=== PATIENT | female | born 1950 | race Caucasian/White ===

== ENCOUNTER → 2020-05-05 10:11 | Outpatient (CLI) | payer MEDICARE, SELFPAY ==
--- NOTE | ~2020-05-05 | CT_ITS ---
EXAMINATION: CT thoracic spine wo con EXAM DATE: 05/05/2020 10:35 INDICATION: CT thoracic spine for back pain, scheduled for lead placement. TECHNIQUE: Spiral CT thoracic spine wo con was performed without contrast. Axial, coronal and sagit millie images were reviewed. The dose-length product (DLP) for this examination was 964.30 mGy-cm. The exposure was tailored according to patient size (auto mA exposure control), and iterative reconstruc tion (ASIR) was used as additional dose reduction technique. Correlation was made with CT abdomen pe lvis 11/09/2005. FINDINGS: There is moderate disc disease at the mid and lower thoracic levels. The vertebral bodies a re aligned in the AP dimension. Vertebral body heights relatively well-maintained. The thoracic centr al canal appears patent. Overall mild to moderate thoracic facet arthropathy. There is moderate left neural foraminal stenosis at T9-10, T10-11, T12-L1. On the right there is moderate to severe neural foraminal stenosis at T2-3, moderate at T3-4 and T10- 11. These are the most narrowed neural foramen on the exam. There are no acute fractures identified. There is a 1.3 cm right adrenal gland lesion, unchanged comp ared to [address], an adenoma. IMPRESSION: Overall moderate thoracic spondylosis. Reviewed, dictated and finalized at location A.
== END ==
PROVIDERS: PCP Family Medicine; Visit Provider Physical Medicine & Rehabilitation Pain Medicine
DX: M47.894 Other spondylosis, thoracic region (principal)
CPT/HCPCS: 72128

== ENCOUNTER 2020-10-29 23:45 | Inpatient (IN) | payer MEDICARE, SELFPAY ==
--- NOTE | ~2020-10-29 | XR_ITS ---
EXAMINATION: XR chest 2V EXAM DATE: 11/01/2020 10:40 INDICATION: Hypoxia. TECHNIQUE: Frontal and lateral projections of the chest obtained and reviewed. Comparison is made to prior examination from 10/30/2020. FINDINGS: There is been interval improvement in heart size, pulmonary vascular congestion, and essen tial resolution of the indistinct reticulation suspected to be pulmonary edema. Appearance is most co nsistent with improving CHF exacerbation. Some scattered linear opacities most likely central subsegm ental atelectasis. No pneumothorax or pleural effusion. There are mild bony degenerative changes. Spi ne stimulator pack, leads. IMPRESSION: 1. Improving CHF exacerbation. Reviewed, dictated and finalized at location A. 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
--- NOTE | ~2020-10-29 | XR_ITS ---
EXAMINATION: XR chest 1V portable DATE: 10/30/2020 00:48 INDICATION: Hypoxia. TECHNIQUE: A single frontal view of the chest was obtained. COMPARISON: Chest 2 views 11/02/2018, chest CT 10/30/2020 FINDINGS: There is a diffuse interstitial pattern, consistent with mild pulmonary edema. There are sm all pleural effusions. No pneumothorax. Cardiomegaly is noted. Epidural electrodes are noted. IMPRESSION: 1. Mild pulmonary edema. 2. Small pleural effusions. 3. Cardiomegaly. Reviewed, dictated and finalized at location A. 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
--- NOTE | ~2020-10-29 | CT_ITS ---
EXAMINATION: CTA chest PE protocol DATE: 10/30/2020 01:43 INDICATION: Shortness of breath. TECHNIQUE: Computed tomography angiography (CTA) of the chest was performed with 100 mL Omnipaque-350 intravenous contrast timed to evaluate the pulmonary arteries. Coronal maximum intensity projection 3D-reconstructions were created by the technologist. Automated exposure control and iterative reconst ruction technique were employed. The dose-length product was 895.24 mGy-cm. COMPARISON: Chest CT 08/12/2005, CT thoracic spine 05/05/2020, CT abdomen 11/09/2005 FINDINGS: The lungs demonstrate diffuse smooth septal thickening with groundglass opacities, consiste nt with pulmonary edema. There is mild atelectasis bilaterally. Again seen is a 4 mm nodule in left u pper lobe, likely benign. There are small pleural effusions. Cardiomegaly is noted. There are coronar y artery calcifications. There is no pulmonary embolus. There is a 1.5 cm mass in right adrenal gland measuring soft tissue attenuation without change in size from 11/09/2005, likely an adenoma. Epidural electrodes are noted. Foci of soft tissue gas are likely from recent placement. There is severe thor acic and lumbar spondylosis. IMPRESSION: 1. No pulmonary embolus. 2. Moderate pulmonary edema. 3. Small pleural effusions. 4. Cardiomegaly. Reviewed, dictated and finalized at location A. CTOR DIGITAL COMMUNICATIONS
[2020-10-29 23:50] VITALS: BP 234/108; PULSE 92; RESP 24; O2SAT 78
--- NOTE | 2020-10-29 23:54 | ECG_ITS ---
Measurements Intervals [place] Rate: 92 P: 33 AL: 188 QRS: 48 QRSD: 104 T: 40 QT: 350 QTc: 435 Interpretive Statements SINUS RHYTHM DELAYED PRECORDIAL R/S TRANSITION BASELINE ARTIFACT- I, II, III, AVR BORDERLINE ECG Electronically Signed On 10-30-2020 6:58:36 STAFFING SPECIALIST by Hao Zhou D.O.
[2020-10-30] VITALS (11 sets, daily range): BP systolic 103–159; BP diastolic 57–88; PULSE 78–114; RESP 16–20; TEMP 36.5–37.3; O2SAT 91–98; BMI 41.1
--- NOTE | 2020-10-30 00:12 | ED.SOB ---
HPI - SOB/Dyspnea General Chief Complaint: Shortness of Breath/Dyspnea Stated Complaint: SOB Time Seen by Provider: 10/30/20 00:01 Source: patient Mode of arrival: ambulatory Limitations: no limitations History of Present Illness HPI Narrative: This is a 69 year old female with history of CHF, hypertension, obesity, back surgery who presents for evaluation of shortness of breath. Patient reports she had lower back surgery at [facility] on Monday. She developed cough and shortness of breath monday night. This shortness of breath has gradually worsened. She has gotten so weak that she is having difficulty standing. She was found to have an oxygen saturation in 70s on room air in triage. She is 98% on 3L NC now. She denies history of copd or lung disease. She denies fever, chills, nausea, vomiting or abdominal pain. She states she does not have chest pain but has feeling of chest caving in. She does report her legs have been swelling since her procedure. Related Data Home Medications Medication Instructions Recorded Confirmed carvedilol 25 mg tablet 25 mg PO Q12H 07/19/19 10/30/20 calcium carbonate 600 mg (1,500 2 tablet PO DAILY tablet 04/10/20 10/30/20 mg)-vitamin D3 200 unit tablet loratadine 10 mg tablet 10 mg PO DAILY 04/10/20 10/30/20 acetaminophen 325 mg tablet 325 mg PO Q4H tablet 09/11/20 10/30/20 cholecalciferol (vitamin D3) 25 25 mcg PO DAILY 09/11/20 10/30/20 mcg (1,000 unit) capsule gabapentin 300 mg capsule 300 mg PO TID cap 09/11/20 10/30/20 magnesium 250 mg tablet 500 mg PO DAILY tablet 09/11/20 10/30/20 multivitamin 1 tablet PO DAILY 09/11/20 10/30/20 Allergies Allergy/AdvReac Type Severity Reaction Status Date / Time fluticasone Allergy Severe CAUSES Verified 10/30/20 06:26 EPISTAXIS thimerosal Allergy Severe HIVES, Verified 10/30/20 06:26 FACE BREAKOUT amlodipine Allergy Unknown Asthma Verified 10/30/20 06:26 aspirin Allergy Unknown Dizziness Verified 10/30/20 06:26 cephalexin Allergy Unknown Rash Verified 10/30/20 06:26 codeine Allergy Unknown severe Verified 10/30/20 06:26 reactions hydrocodone Allergy Unknown Unknown Verified 10/30/20 06:26 irbesartan Allergy Unknown Skin Verified 10/30/20 06:26 Reaction lactase Allergy Unknown allergy Verified 10/30/20 06:26 lactose Allergy Unknown allergy Verified 10/30/20 06:26 lisinopril Allergy Unknown Unknown Verified 10/30/20 06:26 nitrofurantoin Allergy Unknown ?? Verified 10/30/20 06:26 rash/hives nitroglycerin Allergy Unknown severe Verified 10/30/20 06:26 reaction Penicillins Allergy Unknown COMA Verified 10/30/20 06:26 potassium iodide Allergy Unknown Nausea Verified 10/30/20 06:26 Review of Systems Review of Systems: All systems reviewed & are unremarkable except as noted in HPI and below Constitutional: Constitutional: Denies chills and Denies fever(s) Cardiovascular: Cardiovascular: Reports chest pain and Denies rapid heart rate Respiratory: Respiratory: Reports cough and Reports dyspnea Gastrointestinal: Gastrointestinal: Denies abdominal pain, Denies nausea and Denies vomiting Musculoskeletal: Musculoskeletal: Reports back pain Neurologic: Reports weakness PMFSH Past Medical History Medical History Atherosclerotic heart disease of [place] coronary artery with other forms of angina pectoris COVID-19 Essential (primary) hypertension Gastro-esophageal reflux disease without esophagitis Hypertensive heart and chronic kidney disease with heart failure and stage 1 through stage 4 chronic kidney disease, or unspecified chronic kidney disease Hypertensive retinopathy, unspecified eye Mixed hyperlipidemia Rotator cuff tear arthropathy of right shoulder Sleep apnea Surgical History Surgical History History of back surgery History of heart artery stent History of hys
[2020-10-30] MEDS: cloNIDine HCL 0.1 MG TABLET PO ×2 (00:20→09:43)
[2020-10-30] MEDS: FUROSEMIDE INJ 40 MG/4 ML VIAL IV PUSH ×2 (00:20→12:34)
[2020-10-30 00:21] LABS: Basophils Percent Auto 0.6 % (0.2-1.2); Eosinophils Absolute Auto 0.2 K/mm3 (0-0.3); Eosinophils Percent Auto 2.9 % (0-4.4); Hematocrit 42.3 % (37.0-47.0); Hemoglobin 13.6 g/dL (12.0-15.0); Immature Granulocyte Absolute 0.02 K/mm3 (0.00-0.031); Immature Granulocyte Percent A 0.3 % (0-0.5); Lymphocytes Absolute Auto 2.34 K/mm3 (0.9-3.2); Lymphocytes Percent Auto 35.8 % (18.3-44.2); Mean Corpuscular HGB Conc 32.2 g/dl (32-36); Mean Corpuscular Volume 93.2 fl (80-100); Mean Platelet Volume 10.2 fl (7.4-10.4); Monocytes Absolute Auto 0.6 K/mm3 (0.1-0.6); Monocytes Percent Auto 9.5 % (2.6-8.5); Neutrophils Absolute Auto 3.3 K/mm3 (1.3-6.7); Neutrophils Percent Auto 50.9 % (45.5-73.1); Platelet Count Result 234 k/mm3 (150-375); Red Blood Count 4.54 M/mm3 (4.2-5.4); Red Cell Distribution Width 12.5 % (11.5-14.5); White Blood Count 6.5 K/mm3 (4.5-10.0)
[2020-10-30] MEDS: ALBUTEROL SULFATE (*SP) AEROSOL 1 PUFF 6 PUFF INHALATION (00:23)
[2020-10-30 00:27] LABS: Alanine Aminotransferase 39 U/L (4-35); Alkaline Phosphatase 62 U/L (38-126); Anion Gap 4 mmol/L (8-16); Aspartate Amino Transferase 39 U/L (14-36); Bilirubin,Total 0.6 mg/dL (0.2-1.3); Blood Urea Nitrogen 16 mg/dL (7-17); Calcium 9.3 mg/dL (8.4-10.2); Carbon Dioxide 33 mmol/L (22-30); Chloride 103 mmol/L (98-107); Estimated CRCL calculation 89 ml/min; Estimated Glomerular Filt Rate > 60; Glucose 111 mg/dL (65-105); Potassium 3.9 mmol/L (3.4-5.0); Sodium 140 mmol/L (137-145)
[2020-10-30 00:31] LABS: INR 0.9; Prothrombin Time 12.9 Seconds (11.1-14.7)
[2020-10-30 00:32] LABS: Partial Thromboplastin Time 33.8 SECONDS (22.3-36.8)
[2020-10-30 00:37] LABS: Base Excess ABG 2.7 mEq/l (+/-2.0); Carboxyhemoglobin 1.6 % THb (0-2.0); Device NASAL CANNULA; Fractional Inspired Oxygen 32 %; HCO3 ABG 27.9 mEq/l (22.0-26.0); Methemoglobin ABG 0.3 %THb (0-1.5); Oxygen Content ABG 17.1 %vol (16.0-22.0); Oxygen Saturation ABG 92.3 % (95.0-100.0); Oxyhemoglobin 89.3 % THb (90.0-100.0); PCO2 ABG 45.2 mmHg (35.0-45.0); PO2 ABG 63.3 mmHg (80.0-100.0); PO2 FiO2 Ratio Arterial Blood 1.98 %; Reduced Hemoglobin 8.8 %THb (0-5.0); Site Drawn LEFT BRACHIAL; Total Hemoglobin 13.6 g/dL (12.0-18.0); pH ABG 7.409 (7.350-7.450)
[2020-10-30 00:55] LABS: NT Pro B Type Natriuretic Pept 1150 PG/ML (5-100); Troponin I < 0.012 ng/mL (0.000-0.034)
[2020-10-30] MEDS: ONDANSETRON INJ 4 MG/2 ML VIAL IV PUSH (01:46)
[2020-10-30] MEDS: CHOLECALCIFEROL 1,000 UNITS TABLET 1000 UNITS PO (09:42)
[2020-10-30] MEDS: MAGNESIUM OXIDE 400 MG TABLET PO ×2 (09:42→17:09)
[2020-10-30] MEDS: GABAPENTIN 300 MG CAPSULE PO ×3 (09:42→17:09)
[2020-10-30] MEDS: LORATADINE 10 MG TABLET PO (09:43)
[2020-10-30] MEDS: OXYBUTYNIN CHLORIDE 5 MG TABLET PO ×3 (09:43→17:09)
[2020-10-30] MEDS: ROSUVASTATIN 10 MG TABLET PO (09:43)
[2020-10-30] MEDS: MULTIVITAMINS THERAPEUTIC TAB (*BKC) 1 TABLET PO (09:43)
[2020-10-30] MEDS: DULoxetine HCL 60 MG CAPSULE.DR PO (09:43)
[2020-10-30] MEDS: PANTOPRAZOLE 40 MG TABLET PO (09:43)
[2020-10-30] MEDS: carvediloL 25 MG TABLET PO ×2 (09:43→20:01)
[2020-10-30] MEDS: CLOPIDOGREL BISULFATE 75 MG TABLET PO (09:43)
[2020-10-30] MEDS: ENOXAPARIN 40 MG/0.4 ML SYRINGE SUB-Q (09:44)
[2020-10-30] MEDS: oxyCODONE/ACETAMINOPHEN (*CRX) 5-325 MG TABLET 1 TABLET PO ×2 (09:50→23:41)
[2020-10-30 10:20] LABS: Anion Gap 3 mmol/L (8-16); Blood Urea Nitrogen 13 mg/dL (7-17); Calcium 8.8 mg/dL (8.4-10.2); Carbon Dioxide 33 mmol/L (22-30); Chloride 102 mmol/L (98-107); Estimated CRCL calculation 111 ml/min; Estimated Glomerular Filt Rate > 60; Glucose 114 mg/dL (65-105); Magnesium 1.8 mg/dL (1.6-2.3); Potassium 3.2 mmol/L (3.4-5.0); Sodium 138 mmol/L (137-145)
--- NOTE | 2020-10-30 10:33 | PM.IMHP ---
H&P: HPI History of Present Illness Date/Time: 10/30/20 10:33 Chief Complaint: SOB Narrative: Laura Butler is a 69 year old female with a history of systolic CHF, lupus, prior back surgery, recent nerve stimulator placed to her lower left back on 10/26/20 by [facility] in [facility] to help with her chronic back pain, who presented to the emergency room with worsening shortness of breath, chest congestion, chest pain over the last 4 days since her surgery. The patient states after her surgery that evening she went home and began having some shortness of breath issues. She continued on all of her home medications but had to stop her Plavix for 1 week prior to her procedure. As the days when on her shortness of breath became more severe and even at rest. She had an intermittent cough with thick white/yellow sputum production. She also reports intermittent lightheadedness and dizziness and actually fell twice yesterday prior to coming in due to her feeling off balance. When she fell she fell on to her bed and into her couch so she did not sustain any injuries or issues. Then she decided to finally come in after she had an episode of crushing chest pain to her substernal area with radiation to her right upper back which she states is similar to her heart attack she had in the past which required an emergent stent placement. She has chronic leg swelling which she states is unchanged recently. She has been constipated since her back procedure on Monday since she has been taking narcotics. She also has some abdominal pain to left lower quadrant but they said that is common after her back procedure. She also reports her urine appearing orange in color which is not normal for her, she denies any dysuria, foul odor to her urine, frequent urination or any other urinary issues. She did have a UTI September 28 and was treated with antibiotics for 10 days. She states she did follow-up with her primary care provider who repeated urine and did not per diem nurse that she had another 1 after this treatment. She denies any fevers, chills, nausea, vomiting, calf pain, syncopal episodes, or any other issues at this time. Initial vitals showed afebrile, normal heart rate, respiratory rate at 24, elevated blood pressure at 234/108, pulse ox was hypoxic at 78% on room air. Initial labs showed normal CBC with differential, normal coag panel, ABG showing normal pH, elevated CO2 slightly and slightly hypoxic on 3 L of oxygen via nasal cannula. CMP showed slightly elevated LFT at 39, negative troponin. BNP was elevated at 1155. Chest x-ray showed Pulmonary edema with small pleural effusions and cardiomegaly. CTA showed no pulmonary embolism, moderate pulmonary edema, small pleural effusions and cardiomegaly. Patient was admitted into the hospital with acute CHF exacerbation and started on IV diuretics and monitoring of her respiratory status. Code status: Patient would like to be a do not intubate. She would like to have chest compressions and or medication to try and provide for. Power of energy attorney: Granddaughter Ana Paula Jose Review of Systems Review of Systems: All systems reviewed & are unremarkable except as noted in HPI and below [facility] Past Medical History Medical History (Updated 10/30/20 @ 16:36 by Marlin Barboza PA-C) Arthritis Atherosclerotic heart disease of [place] coronary artery with other forms of angina pectoris Cardiac catheterization 03/05/2018 showed ischemic heart disease with no significant occlusive disease identified. Remaining patency of the RCA. Previous infarction of the inferior wall. EF estimated to be 50%. COVID-19 07/27/2020 Essential (primary) hypertension Gastro-esophageal reflux disease without esophagitis Hypertensive heart and chronic kidney disease with heart failure and stage 1 through stage 4 chronic kidney disease, or unspecified chronic kidney disease Hypertensive retinopathy, unspecified eye Mixed hyperlipidemia Rotato
[2020-10-30] MEDS: DOCUSATE SODIUM 100 MG CAPSULE PO ×2 (12:34→20:01)
[2020-10-30] MEDS: POTASSIUM CHLORIDE 20 MEQ TABLET 40 MEQ PO (17:09)
[2020-10-30] MEDS: polyethylene glycoL 3350 17 GM POWD.PACK PO (17:09)
[2020-10-30] MEDS: FUROSEMIDE INJ 40 MG/4 ML VIAL 20 MG IV PUSH (17:10)
--- NOTE | 2020-10-30 18:23 | PM.CNCAR ---
Assessment and Plan Additional Plan this is a 69-year-old lady known to have coronary artery disease with an inferior infarction a long time ago at which to which was treated successfully with emergency PCI. She has done rather well clinically over the intervening years. She now presents with shortness of breath and congestive heart failure on physical exam and by chest x-ray. She appears to be feeling better after diuresis with furosemide since admission. I am going to arrange for an echocardiogram to be done tomorrow to assess left ventricular function in this setting. For now otherwise I would continue her medical regimen. Further recommendations will be forthcoming after the echocardiogram is reviewed. Faraz Lee MD [facility] History of Present Illness History of Present Illness Consult date/time: date of service:10/30/20 18:23 Consult reason: congestive heart failure Reason For Visit: chf with pulmonary edema, hypoxia Narrative: This is a 69-year-old lady who is known to have coronary artery disease who I am seeing this evening at the request of the hospitalist because of the apparent development of congestive heart failure. I do not believe she is known to have decompensated heart failure in the past. This is noted in states that she has been doing fairly well with regard to her cardiac status. She did have a outpatient procedure on Monday of this week where she had a spinal stimulator implanted in a pain management clinic somewhere in [facility]. She says it was an outpatient procedure that went fairly smoothly but afterwards since then she has not been feeling well she described the sensation of some dizziness and increasing shortness of breath. She states that her shortness of breath became worse brought progressively through the weekend last night in the middle of the night she came to the emergency room for evaluation. By exam and chest x-ray she was felt to be in congestive heart failure. She was treated with intravenous furosemide and feels considerably better this evening. She not really reporting any symptoms of chest pain pressure or heaviness she denies any prior symptoms of orthopnea or PND. The patient is known to have coronary artery disease having presented originally in April of 2000 with an acute inferior wall infarction. She was treated at that time with emergency revascularization with stenting of the right coronary artery. She has done well since then she did have some atypical sounding chest pain which led to a follow-up angiogram being done in February of 2018 which was negative for any significant stenotic lesions. Her ejection fraction was felt to be in the vicinity of about 50%. She was last seen in my office in November of last year for follow-up at which time she had no significant cardiac complaints. Patient's electrocardiogram does not show any acute ischemic abnormalities she had a troponin level done in the emergency room which was normal. Renal function also appears to be normal. Review of Systems Constitutional: Constitutional: Reports no additional constitutional complaints Eyes: Eyes: Reports no additional eye complaints ENT: Reports system reviewed and no additional complaints, except as documented Cardiovascular: Cardiovascular: Reports as per HPI Respiratory: Respiratory: Reports dyspnea Gastrointestinal: Gastrointestinal: Reports no additional gastrointestinal complaints Musculoskeletal: Musculoskeletal: Reports no additional musculoskeletal complaints Integumentary/Breasts: Skin/Breast: Reports system reviewed and no additional complaints, except as docu Neurologic: Reports system reviewed and no additional complaints, except as documented Endocrine: Endocrine: Reports no additional endocrine complaints Hematologic/Lymphatic: Hematologic/Lymphatic: Reports no additional hematologic/lymphatic complaints Allergic/Immunologic: Allergic/Immunologic: Reports no addition
[2020-10-31] VITALS (11 sets, daily range): BP systolic 117–151; BP diastolic 52–71; PULSE 72–91; RESP 16–20; TEMP 36.4–36.6; O2SAT 91–98
--- NOTE | 2020-10-31 | ECHO_ITS ---
Patient Info Name: Laura Butler Age: 69 years : 1950 Gender: Female Ht: 65 in Wt: 247 lbs BSA: 2.32 m2 HR: 81 bpm BP: 144 / 71 mmHg Heart Rhythm: Sinus Rhythm Technical Quality: Good Exam Date: 10/31/2020 8:18 AM Exam Location: [facility] Pulmonary Patient Status: Inpatient Admit Date: 10/30/2020 Staff Ordering Physician: Faraz Lee MD Support Staff: Marcy Garcia RDCS Attending Provider: Marlin Barboza PA-C Referring Physician: Jesus HERNANDEZ; Exam Type: CA echo doppler color flow Study Info Complete two-dimensional, color flow and Doppler transthoracic echocardiogram is performed. Summary 1. Complete two-dimensional, color flow and Doppler transthoracic echocardiogram is performed. 2. Left ventricular systolic function is normal, estimated at 60-65%. 3. There is moderate concentric increased left ventricular wall thickness. 4. The left ventricular diastolic function is grade II diastolic dysfunction. 5. Left atrial chamber dimension is severely enlarged. 6. There is mild mitral valve regurgitation. Left Ventricle Left ventricular chamber dimension is normal. Left ventricular systolic function is normal, estimated at 60-65%. There is moderate concentric increased left ventricular wall thickness. The left ventricular diastolic function is grade II diastolic dysfunction. Right Ventricle Right ventricular chamber dimension is normal. Left Atria Left atrial chamber dimension is severely enlarged. Right Atria Right atrial chamber dimension is normal. Aortic Valve The aortic valve is normal. Pulmonic Valve The pulmonic valve is not well visualized. Mitral Valve The mitral valve has normal leaflets. There is mild mitral valve regurgitation. Tricuspid Valve The tricuspid valve leaflets are not well visualized. Pericardium/Pleural The pericardium appears normal. Aorta The aortic root size at the sinus of Valsalva is normal. Left Ventricular Outflow Tract Name Value Normal LVOT 2D LVOT Diameter 2.2 cm LVOT Doppler LVOT Peak Velocity 88 cm/s LVOT Peak Gradient 3 mmHg LVOT Mean Gradient 2 mmHg LVOT VTI 19 cm LVOT VTI/AV VTI Ratio 0.8 LVOT Stroke Volume 69 ml LVOT CO 4.8 l/min LVOT CI 2.1 l/min/m2 Pulmonic Valve Name Value Normal PV Doppler PV Peak Velocity 84 cm/s PV Peak Gradient 3 mmHg Mitral Valve Name Value Normal MV Doppler -------
[2020-10-31 01:28] LABS: Add Urine Microscopic? NO; Appearance Urine Clear (Clear); Bilirubin Urine Negative (Negative); Blood Urine Negative (Negative); Color Urine Straw (Yellow); Glucose Urine UA Negative (Negative); Ketones Urine Negative (Negative); Leukocyte Esterase Ur Negative LEU/UL (Negative); Nitrate Urine Negative (Negative); Protein Urine Negative (Negative); Specific Grav Ur 1.008 (1.001-1.035); Urobilinogen Urine Negative mg/dL (<2.0)
[2020-10-31 06:36] LABS: Alanine Aminotransferase 28 U/L (4-35); Albumin Level 3.2 g/dL (3.5-5.1); Alkaline Phosphatase 47 U/L (38-126); Anion Gap 0 mmol/L (8-16); Aspartate Amino Transferase 28 U/L (14-36); Bilirubin,Total 0.6 mg/dL (0.2-1.3); Blood Urea Nitrogen 15 mg/dL (7-17); Calcium 8.5 mg/dL (8.4-10.2); Carbon Dioxide 37 mmol/L (22-30); Chloride 100 mmol/L (98-107); Estimated CRCL calculation 82 ml/min; Estimated Glomerular Filt Rate > 60; Glucose 114 mg/dL (65-105); Potassium 3.7 mmol/L (3.4-5.0); Sodium 137 mmol/L (137-145)
[2020-10-31 06:48] LABS: Basophils Percent Auto 0.3 % (0.2-1.2); Eosinophils Absolute Auto 0.2 K/mm3 (0-0.3); Eosinophils Percent Auto 5.8 % (0-4.4); Hematocrit 39.7 % (37.0-47.0); Hemoglobin 12.8 g/dL (12.0-15.0); Immature Granulocyte Absolute 0.01 K/mm3 (0.00-0.031); Immature Granulocyte Percent A 0.3 % (0-0.5); Lymphocytes Percent Auto 32.3 % (18.3-44.2); Mean Corpuscular HGB Conc 32.2 g/dl (32-36); Mean Corpuscular Hemoglobin 29.8 pg (26-34); Mean Corpuscular Volume 92.5 fl (80-100); Mean Platelet Volume 10.1 fl (7.4-10.4); Monocytes Absolute Auto 0.3 K/mm3 (0.1-0.6); Monocytes Percent Auto 9.4 % (2.6-8.5); Neutrophils Absolute Auto 1.6 K/mm3 (1.3-6.7); Neutrophils Percent Auto 51.9 % (45.5-73.1); Platelet Count Result 205 k/mm3 (150-375); Red Blood Count 4.29 M/mm3 (4.2-5.4); Red Cell Distribution Width 12.7 % (11.5-14.5); White Blood Count 3.1 K/mm3 (4.5-10.0)
[2020-10-31] MEDS: oxyCODONE/ACETAMINOPHEN (*CRX) 5-325 MG TABLET 1 TABLET PO ×2 (09:10→16:38)
[2020-10-31] MEDS: CHOLECALCIFEROL 1,000 UNITS TABLET 1000 UNITS PO (09:11)
[2020-10-31] MEDS: GABAPENTIN 300 MG CAPSULE PO ×3 (09:12→16:30)
[2020-10-31] MEDS: CLOPIDOGREL BISULFATE 75 MG TABLET PO (09:12)
[2020-10-31] MEDS: OXYBUTYNIN CHLORIDE 5 MG TABLET PO ×3 (09:12→16:30)
[2020-10-31] MEDS: MAGNESIUM OXIDE 400 MG TABLET PO ×2 (09:12→16:30)
[2020-10-31] MEDS: cloNIDine HCL 0.1 MG TABLET PO ×3 (09:12→21:58)
[2020-10-31] MEDS: DOCUSATE SODIUM 100 MG CAPSULE PO ×2 (09:12→21:58)
[2020-10-31] MEDS: DULoxetine HCL 60 MG CAPSULE.DR PO (09:13)
[2020-10-31] MEDS: ROSUVASTATIN 10 MG TABLET PO (09:13)
[2020-10-31] MEDS: carvediloL 25 MG TABLET PO ×2 (09:13→21:58)
[2020-10-31] MEDS: ENOXAPARIN 40 MG/0.4 ML SYRINGE SUB-Q (09:13)
[2020-10-31] MEDS: MULTIVITAMINS THERAPEUTIC TAB (*BKC) 1 TABLET PO (09:13)
[2020-10-31] MEDS: PANTOPRAZOLE 40 MG TABLET PO (09:13)
[2020-10-31] MEDS: LORATADINE 10 MG TABLET PO (09:13)
[2020-10-31] MEDS: FUROSEMIDE INJ 40 MG/4 ML VIAL 20 MG IV PUSH (09:14)
[2020-10-31] MEDS: polyethylene glycoL 3350 17 GM POWD.PACK PO ×2 (09:14→16:29)
--- NOTE | 2020-10-31 12:02 | PM.IMPN ---
Progress Note: A&P Assessment and Plan (1) Acute on chronic systolic CHF (congestive heart failure): Code(s): I50.23 - Acute on chronic systolic (congestive) heart failure Status: Acute Assessment and Plan: Patient with a history of mild systolic congestive heart failure now presents with worsening dyspnea on exertion, found to have elevated BNP at 5400, chest x-ray changes showing pulmonary edema from acute CHF exacerbation. Patient was started on IV diuretics, Lasix 40 mg b.i.d.. Due to the patient's low blood pressure yesterday afternoon I switched her diuretics to IV 20 mg q.12 hours since she is not usually on diuretics at home and to prevent hypotension. Monitor BP closely. Will continue monitoring fluid status, renal function, intake and output, heart healthy diet (2) Previous back surgery: Code(s): Z98.890 - Other specified postprocedural states Status: Acute Assessment and Plan: Patient had a nerve stimulator placed to her left lower back on 10/26/2020 at [facility] in [facility]. After procedures when she developed worsening shortness of breath and issues. Back examination looks much better today. I believe that the redness and warmth was due to her laying down yesterday. No signs of erythema, warmth to back at this time. Otherwise no signs of infection on labs or vitals. She is not supposed to remove the dressings to her back until her follow-up on 11/09/2020. Will try to avoid removing this but if she develops a fever call white blood cell count elevation or other concerns we may need to remove the bandage to make sure there is no wound infection or cultures that her needed. Continue monitoring labs. (3) Chest pain: Code(s): R07.9 - Chest pain, unspecified Status: Acute Assessment and Plan: The patient did report of episode of chest pain prior to arrival and while in the emergency room before admission. She reported similar chest pain when she had her heart attack a few years ago and needed a stent placed. Cardiology evaluated the patient is ordered an echocardiogram. Continue monitoring. (4) Atherosclerotic heart disease of [place] coronary artery with other forms of angina pectoris: Code(s): I25.118 - Atherosclerotic heart disease of [place] coronary artery with other forms of angina pectoris Status: Acute Assessment and Plan: Cardiac catheterization 03/05/2018 showed ischemic heart disease with no significant occlusive disease identified. Remaining patency of the RCA. Previous infarction of the inferior wall. EF estimated to be 50%. (5) Mixed hyperlipidemia: Code(s): E78.2 - Mixed hyperlipidemia Status: Acute Assessment and Plan: Continue statin medication. (6) Essential (primary) hypertension: Code(s): I10 - Essential (primary) hypertension Status: Acute Assessment and Plan: Blood pressure this morning was normal at 144/71. Continue monitoring while diuresing. Continue home medications. (7) Abnormal urine color: Code(s): R39.89 - Other symptoms and signs involving the genitourinary system Status: Acute Assessment and Plan: Urinalysis was completely normal without any signs of infection. (8) Constipation: Code(s): K59.00 - Constipation, unspecified Status: Acute Assessment and Plan: Most likely due to decreased mobility after back surgery on Monday. Also she has been taking narcotic pain medications which can cause constipation. Continue with MiraLax twice daily, stool softeners twice daily and will give her a suppository. Continue monit
--- NOTE | 2020-10-31 12:10 | PM.PNCARD ---
Progress Note: A&P Additional Plan 69-year-old lady with: Episode of volume overload with some shortness of breath etiology of which is not entirely clear. It is possible that she received some intravenous fluid perioperative during Mondays outpatient surgery. She was feeling poorly since that procedure. She has been diuresed and appears to be asymptomatic and euvolemic on exam. Echocardiogram done this morning does not show any significant left ventricular systolic dysfunction and this lady did not require a diuretic chronically prior to this incident. I am going to recommend stopping the IV furosemide at this time and just observing this. Nurses tell me that the hospitalist which keep her in the hospital on IV antibiotics for a while. Faraz Lee MD [facility] Subjective Date/time seen: Date of service:10/31/20 12:10 Interval history: Follow-up visit in this 69-year-old lady with: Shortness of breath exam and chest x-ray evidence of congestive failure on admission. Patient is symptomatically doing well following diuresis. Offers no complaints today of a cardiac nature. Says that her site of implant of her pain stimulator in her back is a bit painful this morning. No longer short of breath patient was sleeping flat in bed on room air when I entered the room to see her. Exam Const: General: comfortable and no acute distress Other: Obese lady who is cooperative pleasant and in no distress of any sort HENMT: Mouth: Yes moist mucous membranes Eyes: Sclera: sclerae normal Pupils: Equal, round and reactive pupils present Neck: Neck: supple Thyroid: thyroid normal Other: difficult to assess venous distention given her body habitus Resp: Effort & Inspection: normal respiratory effort Auscultation: clear to auscultation bilaterally Other: no pulmonary rales remain Cardio: Rate: regular rate Rhythm: regular rhythm GI: GI Palp: Yes Soft to palpation Auscultation: normal bowel sounds Objective Data Vital Signs Vital Signs: Vital Signs - 24 hr 10/30/20 14:00 10/30/20 20:00 10/30/20 20:01 Temperature 36.7 C 37.3 C Pulse Rate 81 88 86 Respiratory Rate 20 18 Blood Pressure 103/57 L 147/75 H Pulse Oximetry 95 91 10/30/20 22:00 10/31/20 00:00 10/31/20 04:00 Temperature 37.3 C Pulse Rate 85 91 84 Respiratory Rate 18 Blood Pressure 147/75 H Pulse Oximetry 91 10/31/20 06:00 10/31/20 08:00 10/31/20 10:46 Temperature 36.4 C L Pulse Rate 84 Respiratory Rate 20 Blood Pressure 144/71 H Pulse Oximetry 93 94 91 Intake/Output Intake/Output: Intake & Output 10/28/20 10/29/20 10/30/20 10/31/20 23:59 23:59 23:59 23:59 Intake Total 1270 740 Output Total 750 1200 Balance 520 -460 Meds/Results Medications: Active Medications Generic Name Dose Route Start Last Admin Trade Name Freq PRN Reason Stop Dose Admin Acetaminophen 325 mg 10/30/20 07:55 Acetaminophen 325 Mg Tablet PO Q4H PRN PAIN RATED 1-3 Bisacodyl 10 mg 10/30/20 11:59 Bisacodyl 10 Mg Suppository RECTAL DAILY PRN Constipation Carvedilol 25 mg 10/30/20 09:00 10/31/20 09:13 Carvedilol 25 Mg Tablet PO 25 mg Q12H ULICES Administration Clonidine HCl 0.1 mg 10/30/20 09:00 10/31/20 09:24 Clonidine Hcl 0.1 Mg Tablet PO 0.1 mg Q12HR ULICES Administration Clopidogrel Bisulfate 75 mg 10/30/20 09:00 10/31/20 09:12 Clopidogrel Bisulfate 75 Mg Tablet PO 75 mg DAILY ULICES Administration Docusate Sodium 100 mg 10/30/20 12:00 10/31/20 09:12 Docusate Sodium 100 Mg Capsule PO 100 mg Q12HR ULICES Administration Duloxetine HCl 60 mg 10/30/20 09:00 10/31/20 09:13 Duloxetine Hcl 60 Mg Capsule.Dr PO 60 mg DAILY ULICES Administration Enoxaparin Sodium 40 mg 10/30/20 09:00 10/31/20 09:13 Enoxaparin 40 Mg/0.4 Ml Syringe SUB-Q 40 mg DAILY ULICES Administration Gabapentin 300 mg 10/30/20 09:00 10/31/20 12:08 Gabapentin 300 Mg Capsule
[2020-10-31] MEDS: BISACODYL 10 MG SUPPOSITORY RECTAL (16:30)
[2020-11-01] VITALS (10 sets, daily range): BP systolic 100–166; BP diastolic 64–75; PULSE 68–92; RESP 16–20; TEMP 36–36.9; O2SAT 92–97
[2020-11-01] MEDS: ACETAMINOPHEN 325 MG TABLET PO (03:10)
[2020-11-01 06:35] LABS: Anion Gap 3 mmol/L (8-16); Blood Urea Nitrogen 13 mg/dL (7-17); Calcium 8.7 mg/dL (8.4-10.2); Carbon Dioxide 35 mmol/L (22-30); Chloride 103 mmol/L (98-107); Estimated CRCL calculation 94 ml/min; Estimated Glomerular Filt Rate > 60; Glucose 110 mg/dL (65-105); Magnesium 1.9 mg/dL (1.6-2.3); Potassium 3.5 mmol/L (3.4-5.0); Sodium 141 mmol/L (137-145)
[2020-11-01] MEDS: OXYBUTYNIN CHLORIDE 5 MG TABLET PO ×3 (09:11→16:59)
[2020-11-01] MEDS: GABAPENTIN 300 MG CAPSULE PO ×3 (09:11→16:59)
[2020-11-01] MEDS: ENOXAPARIN 40 MG/0.4 ML SYRINGE SUB-Q (09:12)
[2020-11-01] MEDS: carvediloL 25 MG TABLET PO ×2 (09:12→20:14)
[2020-11-01] MEDS: PANTOPRAZOLE 40 MG TABLET PO (09:12)
[2020-11-01] MEDS: LORATADINE 10 MG TABLET PO (09:12)
[2020-11-01] MEDS: MULTIVITAMINS THERAPEUTIC TAB (*BKC) 1 TABLET PO (09:13)
[2020-11-01] MEDS: DULoxetine HCL 60 MG CAPSULE.DR PO (09:13)
[2020-11-01] MEDS: CHOLECALCIFEROL 1,000 UNITS TABLET 1000 UNITS PO (09:13)
[2020-11-01] MEDS: CLOPIDOGREL BISULFATE 75 MG TABLET PO (09:13)
[2020-11-01] MEDS: ROSUVASTATIN 10 MG TABLET PO (09:13)
[2020-11-01] MEDS: DOCUSATE SODIUM 100 MG CAPSULE PO ×2 (09:13→20:15)
[2020-11-01] MEDS: cloNIDine HCL 0.1 MG TABLET PO ×2 (09:13→20:14)
[2020-11-01] MEDS: MAGNESIUM OXIDE 400 MG TABLET PO ×2 (09:14→17:00)
--- NOTE | 2020-11-01 11:37 | PM.IMPN ---
Progress Note: A&P Assessment and Plan (1) Acute on chronic diastolic CHF (congestive heart failure): Code(s): I50.33 - Acute on chronic diastolic (congestive) heart failure Status: Acute Assessment and Plan: History of systolic dysfunction, now Echo showing preserved EF and diastolic dysfunction grade II. Came in with worsening dyspnea on exertion, found to have elevated BNP at 5400, chest x-ray changes showing pulmonary edema from acute CHF exacerbation. Echo showed normal EF 60-65%, Moderate Concentric LVH, Diastolic Grade II. Patient was started on IV diuretics, Lasix 40 mg b.i.d.. Due to the patient's low blood pressure, I switched her diuretics to IV 20 mg q.12 hours since she is not usually on diuretics at home. Yesterday, Application Security Consultant evaluated the patient and discontinued IV Lasix. Today, she is still hypoxic requiring 1L currently, and when the nurse dropped her to room air she became hypoxic in the 80's. Repeat CXR showed improving CHF exacerbation, but still present. Will give the patient one more dose of IV Lasix 20 mg. Told the nurse to call me about her respiratory status to see if she needs another dose of lasix later on. Will continue monitoring fluid status, renal function, intake and output, heart healthy diet (2) Previous back surgery: Code(s): Z98.890 - Other specified postprocedural states Status: Acute Assessment and Plan: Patient had a nerve stimulator placed to her left lower back on 10/26/2020 at [facility] in [facility]. After procedures when she developed worsening shortness of breath and issues. Back examination looks much better today. I believe that the redness and warmth was due to her laying down yesterday. No signs of erythema, warmth to back at this time. Otherwise no signs of infection on labs or vitals. She is not supposed to remove the dressings to her back until her follow-up on 11/09/2020. Will try to avoid removing this but if she develops a fever call white blood cell count elevation or other concerns we may need to remove the bandage to make sure there is no wound infection or cultures that her needed. Continue monitoring labs. (3) Chest pain: Code(s): R07.9 - Chest pain, unspecified Status: Acute Assessment and Plan: The patient did report of episode of chest pain prior to arrival and while in the emergency room before admission. She reported similar chest pain when she had her heart attack a few years ago and needed a stent placed. Cardiology evaluated the patient She is not having anymore CP currently. Continue monitoring. (4) Atherosclerotic heart disease of [place] coronary artery with other forms of angina pectoris: Code(s): I25.118 - Atherosclerotic heart disease of [place] coronary artery with other forms of angina pectoris Status: Acute Assessment and Plan: Cardiac catheterization 03/05/2018 showed ischemic heart disease with no significant occlusive disease identified. Remaining patency of the RCA. Previous infarction of the inferior wall. EF estimated to be 50%. (5) Mixed hyperlipidemia: Code(s): E78.2 - Mixed hyperlipidemia Status: Acute Assessment and Plan: Continue statin medication. (6) Essential (primary) hypertension: Code(s): I10 - Essential (primary) hypertension Status: Acute Assessment and Plan: Blood pressure this morning was elevated at 166/75, before home medications and diuretics given. Continue monitoring while diuresing. Continue home medications. (7) Abnormal urine color: Code(s): R39.89 - Other symptoms and signs involving the genitourinary system S
[2020-11-01] MEDS: FUROSEMIDE INJ 40 MG/4 ML VIAL 20 MG IV PUSH ×2 (12:02→18:37)
[2020-11-01] MEDS: oxyCODONE/ACETAMINOPHEN (*CRX) 5-325 MG TABLET 1 TABLET PO (16:59)
[2020-11-02] MEDS: oxyCODONE/ACETAMINOPHEN (*CRX) 5-325 MG TABLET 1 TABLET PO ×2 (00:18→12:47)
[2020-11-02 05:54] VITALS: BP 161/60; PULSE 72; RESP 18; TEMP 36.1; O2SAT 94
[2020-11-02 06:22] LABS: Anion Gap 5 mmol/L (8-16); Blood Urea Nitrogen 12 mg/dL (7-17); Calcium 8.7 mg/dL (8.4-10.2); Carbon Dioxide 36 mmol/L (22-30); Chloride 102 mmol/L (98-107); Estimated CRCL calculation 94 ml/min; Estimated Glomerular Filt Rate > 60; Glucose 104 mg/dL (65-105); Magnesium 1.9 mg/dL (1.6-2.3); Potassium 3.3 mmol/L (3.4-5.0); Sodium 143 mmol/L (137-145)
[2020-11-02] MEDS: ONDANSETRON INJ 4 MG/2 ML VIAL IV PUSH (08:33)
[2020-11-02] MEDS: ACETAMINOPHEN 325 MG TABLET PO (08:33)
[2020-11-02] MEDS: GABAPENTIN 300 MG CAPSULE PO (08:35)
[2020-11-02] MEDS: DOCUSATE SODIUM 100 MG CAPSULE PO (08:35)
[2020-11-02] MEDS: MULTIVITAMINS THERAPEUTIC TAB (*BKC) 1 TABLET PO (08:35)
[2020-11-02] MEDS: POTASSIUM CHLORIDE 20 MEQ TABLET 40 MEQ PO (08:35)
[2020-11-02] MEDS: ENOXAPARIN 40 MG/0.4 ML SYRINGE SUB-Q (08:35)
[2020-11-02] MEDS: CHOLECALCIFEROL 1,000 UNITS TABLET 1000 UNITS PO (08:35)
[2020-11-02] MEDS: PANTOPRAZOLE 40 MG TABLET PO (08:35)
[2020-11-02 08:36] VITALS: PULSE 72
[2020-11-02] MEDS: DULoxetine HCL 60 MG CAPSULE.DR PO (08:36)
[2020-11-02] MEDS: carvediloL 25 MG TABLET PO (08:36)
[2020-11-02] MEDS: cloNIDine HCL 0.1 MG TABLET PO (08:36)
[2020-11-02] MEDS: MAGNESIUM OXIDE 400 MG TABLET PO (08:37)
[2020-11-02] MEDS: ROSUVASTATIN 10 MG TABLET PO (08:37)
[2020-11-02] MEDS: LORATADINE 10 MG TABLET PO (08:38)
[2020-11-02] MEDS: CLOPIDOGREL BISULFATE 75 MG TABLET PO (08:38)
--- NOTE | 2020-11-02 11:41 | PM.DS ---
DS: Admitting Diagnosis Admitting Diagnosis Admitting Diagnosis: SOB, CP DS: Discharge Diagnosis Discharge Diagnosis (1) Acute on chronic diastolic CHF (congestive heart failure): Code(s): I50.33 - Acute on chronic diastolic (congestive) heart failure Status: Acute Assessment and Plan: History of systolic dysfunction, now Echo showing preserved EF and diastolic dysfunction grade II. Came in with worsening dyspnea on exertion, found to have elevated BNP at 5400, chest x-ray changes showing pulmonary edema from acute CHF exacerbation. Echo showed normal EF 60-65%, Moderate Concentric LVH, Diastolic Grade II. Patient was started on IV diuretics, Lasix 40 mg b.i.d.. Due to the patient's low blood pressure, I switched her diuretics to IV 20 mg q.12 hours since she is not usually on diuretics at home. Yesterday, Manager Administrative evaluated the patient and discontinued IV Lasix. Today, she is still hypoxic requiring 1L currently, and when the nurse dropped her to room air she became hypoxic in the 80's. Repeat CXR showed improving CHF exacerbation, but still present. Will give the patient one more dose of IV Lasix 20 mg. Patient is feeling much better today. Resting comfortably on room air 94%. Not having any dyspnea on exertion and much improved leg swelling with only trace at this time. She is stable to be discharged home to follow-up with cardiology as an outpatient. Cardiology did not recommend any diuretics. I told her to watch her weight daily and if she begins gaining weight contact her primary care provider or cell lead. (2) Previous back surgery: Code(s): Z98.890 - Other specified postprocedural states Status: Acute Assessment and Plan: Patient had a nerve stimulator placed to her left lower back on 10/26/2020 at [facility] in [facility]. After procedures when she developed worsening shortness of breath and issues. Back examination looks much better today. I believe that the redness and warmth was due to her laying down yesterday. No signs of erythema, warmth to back at this time. Otherwise no signs of infection on labs or vitals. She is not supposed to remove the dressings to her back until her follow-up on 11/09/2020. Will try to avoid removing this but if she develops a fever call white blood cell count elevation or other concerns we may need to remove the bandage to make sure there is no wound infection or cultures that her needed. She needs a follow-up as an outpatient with her surgeon. (3) Chest pain: Code(s): R07.9 - Chest pain, unspecified Status: Acute Assessment and Plan: The patient did report of episode of chest pain prior to arrival and while in the emergency room before admission. She reported similar chest pain when she had her heart attack a few years ago and needed a stent placed. Cardiology evaluated the patient She is not having anymore CP currently. (4) Atherosclerotic heart disease of [place] coronary artery with other forms of angina pectoris: Code(s): I25.118 - Atherosclerotic heart disease of [place] coronary artery with other forms of angina pectoris Status: Acute Assessment and Plan: Cardiac catheterization 03/05/2018 showed ischemic heart disease with no significant occlusive disease identified. Remaining patency of the RCA. Previous infarction of the inferior wall. EF estimated to be 50%. (5) Mixed hyperlipidemia: Code(s): E78.2 - Mixed hyperlipidemia Status: Acute Assessment and Plan: Continue statin medication. (6) Essential (primary) hypertension: Code(s): I10 - Essential (primary) hypertension Status: Acute Assessment and Plan: Blood pressure thi
[2020-11-02 14:00] VITALS: BP 132/67; PULSE 69; RESP 16; TEMP 36.6; O2SAT 94
== END 2020-11-02 15:20 | disposition home or self-care (01) | DRG 291 ==
LOC: ANHED 10-30 01:02 → ANH3MEDSUR 10-30 05:20
PROVIDERS: Admitting Provider Internal Medicine; Emergency Provider General Practice; PCP Family Medicine; Visit Provider Physician Assistant
DX: I13.0 Hypertensive heart and chronic kidney disease with heart failure and stage 1 through stage 4 chronic kidney disease, or unspecified chronic kidney disease (principal); I50.33 Acute on chronic diastolic (congestive) heart failure; N18.9 Chronic kidney disease, unspecified; H35.039 Hypertensive retinopathy, unspecified eye; R07.9 Chest pain, unspecified; I25.118 Atherosclerotic heart disease of native coronary artery with other forms of angina pectoris; E78.2 Mixed hyperlipidemia; R39.89 Other symptoms and signs involving the genitourinary system; K21.9 Gastro-esophageal reflux disease without esophagitis; K59.00 Constipation, unspecified; Z79.899 Other long term (current) drug therapy; Z86.16 Personal history of COVID-19; Z87.891 Personal history of nicotine dependence; Z96.82 Presence of neurostimulator; Z98.1 Arthrodesis status
CPT/HCPCS: 36415; 36600; 71045; 71046; 71275; 80048; 80053; 80076; 81003; 82375; 82805; 83050; 83735; 83880; 84484; 85025; 85610; 85730; 93005; 93306; 94640; 96374; 96375; 97110; 97161; 97166; 97535; 99285; A9270; J1650; J1940; J2405; Q9967

== ENCOUNTER → 2020-12-03 11:06 | Outpatient (CLI) | payer MEDICARE, SELFPAY ==
--- NOTE | ~2020-12-03 | MM_ITS ---
EXAMINATION: MM screening wilbert BI w ashley HISTORY: Screening mammogram TECHNIQUE: Craniocaudal and mediolateral oblique 3-D tomosynthesis images were obtained and synthetic 2-D images were generated. CAD analysis was submitted and interpreted. COMPARISON: 08/08/2019, 05/28/2018, 12/23/2015 bilateral digital screening mammogram examinations BREAST PARENCHYMAL COMPOSITION: There are scattered areas of fibroglandular density. FINDINGS: There is no evidence of suspicious mass, calcification, or architectural distortion to sugg est malignancy in either breast. There has been no suspicious interval change. IMPRESSION: 1. No mammographic evidence of malignancy. 2. Recommend routine screening mammography in one year. BI-RADS Category 1: Negative Reviewed, dictated and finalized at location A.
== END ==
PROVIDERS: PCP Family Medicine; Visit Provider Family Medicine
DX: Z12.31 Encounter for screening mammogram for malignant neoplasm of breast (principal)
CPT/HCPCS: 77063; 77067

== ENCOUNTER 2020-12-08 08:41 | Outpatient (CLI) | payer MEDICARE, SELFPAY | END 2020-12-08 08:42 | disposition home or self-care (01) | LOC: ANHCOVIDVC 08:41 | PROVIDERS: PCP Family Medicine | DX: Z23 Encounter for immunization (principal) | CPT/HCPCS: 0001A; 91300 ==

== ENCOUNTER 2020-12-29 08:39 | Outpatient (CLI) | payer MEDICARE, SELFPAY | END 2020-12-29 08:40 | LOC: ANHCOVIDVC 08:39 | PROVIDERS: PCP Family Medicine | DX: Z23 Encounter for immunization (principal) | CPT/HCPCS: 0002A; 91300 ==

== ENCOUNTER 2021-12-03 16:33 | Emergency (ER) | payer MEDICARE, SELFPAY ==
[2021-12-03] VITALS (9 sets, daily range): BP systolic 165–190; BP diastolic 91–112; PULSE 88–99; RESP 15–22; TEMP 36.6; O2SAT 92–99
--- NOTE | ~2021-12-03 | XR_ITS ---
EXAMINATION: XR chest 1V portable DATE: 12/03/2021 17:16 INDICATION: Dizziness TECHNIQUE: frontal view of the chest was obtained. COMPARISON: Chest radiograph dated 11/11/2020 FINDINGS: Unchanged linear band of discoid atelectasis/scarring in the left lower lung zone. No other airspace opacities, pulmonary edema, pleural effusion or pneumothorax. Cardiomegaly. Spinal stimulator leads p roject over the central canal at the mid thoracic spine. Severe right glenohumeral osteoarthritis. IMPRESSION: 1. Chronic mild discoid atelectasis/scarring the left lower lung zone. No acute cardiopulmonary disea se. Reviewed, dictated and finalized at location B. IMPRESSION: 1. Chronic mild discoid atelectasis/scarring the left lower lung zone. No acute cardiopulmonary disease.
--- NOTE | ~2021-12-03 | CT_ITS ---
EXAMINATION: CT brain wo con DATE: 12/03/2021 17:09 INDICATION: 3 ground-level falls due to dizziness TECHNIQUE: Computed tomography (CT) of the head was performed without intravenous contrast. The mA wa s adjusted according to patient size. Iterative reconstruction technique was employed. Exam dose: 60 5.33 mGy-cm total exam DLP. COMPARISON: 07/25/2010 MRI brain/brainstem 11/14/2009 CT brain FINDINGS: There is an up to 1.7 cm wide 2.4 cm AP dimension acute right thalamic hematoma with mild s urrounding edema, with minimal leftward midline shift at the thalamic level. An moderate impression u mohinder the body of the right lateral ventricle. No intracranial mass lesion is noted. No other intracranial hemorrhage is noted. There is nonspecific diminished attenuation of the cerebral white matter, likely due to chronic small vessel ischemic changes. Bilateral carotid siphon internal carotid artery calcifications are noted. Normal ventricular size. No subdural or epidural hematoma. No orbital mass lesion. No fracture or bone destruction of the cranial vault. The mastoid air cells and included paranasal si nuses are unremarkable. IMPRESSION: Acute right thalamic hematoma with mild leftward midline shift Negative telephoned the report on 12/03/2021 at 1725 hours to emergency room physician Dr. Crain. Reviewed, dictated and finalized at Location [facility]. Reviewed, dictated and finalized at location A. IMPRESSION: Acute right thalamic hematoma with mild leftward midline shift Negative telephoned the report on 12/03/2021 at 1725 hours to emergency room phys yuliet Crain.
[2021-12-03 17:05] LABS: Basophils Percent Auto 0.6 % (0.2-1.2); Eosinophils Absolute Auto 0.1 K/mm3 (0-0.3); Eosinophils Percent Auto 1.6 % (0-4.4); Hematocrit 46.4 % (37.0-47.0); Hemoglobin 15.3 g/dL (12.0-15.0); Immature Granulocyte Absolute 0.02 K/mm3 (0.00-0.031); Immature Granulocyte Percent A 0.3 % (0-0.5); Lymphocytes Absolute Auto 2.02 K/mm3 (0.9-3.2); Mean Corpuscular Hemoglobin 29.4 pg (26-34); Mean Corpuscular Volume 89.2 fl (80-100); Mean Platelet Volume 10.3 fl (7.4-10.4); Monocytes Absolute Auto 0.7 K/mm3 (0.1-0.6); Monocytes Percent Auto 10.5 % (2.6-8.5); Neutrophils Absolute Auto 3.8 K/mm3 (1.3-6.7); Platelet Count Result 265 k/mm3 (150-375); Red Cell Distribution Width 13.2 % (11.5-14.5); White Blood Count 6.7 K/mm3 (4.5-10.0)
--- NOTE | 2021-12-03 17:12 | ED.DIZZY ---
HPI - Dizziness General Chief Complaint: Dizziness Stated Complaint: dizziness, htn Time Seen by Provider: 12/03/21 16:46 Source: patient, family and RN notes reviewed Mode of arrival: EMS Limitations: no limitations History of Present Illness HPI Narrative: Patient is 71 years old white female presents with dizziness almost all her life. Got worse today. Patient had 3 falls because feeling weak and wobbly. Currently complaining of frontal headache, denies any nausea, vomiting, fever, chills, chest pain, back pain or extremity pain. Patient supposed to be on Plavix which is stopped 5 days ago because of colonoscopy. Related Data Home Medications Medication Instructions Recorded Confirmed calcium carbonate 600 mg-vitamin 2 tablet PO DAILY tablet 04/10/20 10/25/21 D3 5 mcg (200 unit) tablet loratadine 10 mg tablet 10 mg PO DAILY 04/10/20 10/25/21 acetaminophen 325 mg tablet 325 mg PO Q4H tablet 09/11/20 10/25/21 cholecalciferol (vitamin D3) 25 25 mcg PO DAILY 09/11/20 10/25/21 mcg (1,000 unit) capsule magnesium 250 mg tablet 500 mg PO DAILY tablet 09/11/20 10/25/21 multivitamin 1 tablet PO DAILY 09/11/20 10/25/21 Allergies Allergy/AdvReac Type Severity Reaction Status Date / Time fluticasone Allergy Severe CAUSES Verified 12/03/21 16:47 EPISTAXIS thimerosal Allergy Severe HIVES, Verified 12/03/21 16:47 FACE BREAKOUT amlodipine Allergy Unknown Asthma Verified 12/03/21 16:47 aspirin Allergy Unknown Dizziness Verified 12/03/21 16:47 cephalexin Allergy Unknown Rash Verified 12/03/21 16:47 codeine Allergy Unknown severe Verified 12/03/21 16:47 reactions hydrocodone Allergy Unknown Unknown Verified 12/03/21 16:47 irbesartan Allergy Unknown Skin Verified 12/03/21 16:47 Reaction lactase Allergy Unknown allergy Verified 12/03/21 16:47 lactose Allergy Unknown allergy Verified 12/03/21 16:47 lisinopril Allergy Unknown Unknown Verified 12/03/21 16:47 nitrofurantoin Allergy Unknown ?? Verified 12/03/21 16:47 rash/hives nitroglycerin Allergy Unknown severe Verified 12/03/21 16:47 reaction Penicillins Allergy Unknown COMA Verified 12/03/21 16:47 potassium iodide Allergy Unknown Nausea Verified 12/03/21 16:47 Review of Systems Review of Systems: CONSTITUTIONAL: Denies fever, chills, or sweats. EYES: Denies visual changes, redness, or discharge. ENT: Denies rhinorrhea, congestion, sore throat, or otalgia. CARDIOVASCULAR: Denies chest pain, palpitations, or edema. RESPIRATORY: Denies cough or dyspnea. GASTROINTESTINAL: Denies abdominal pain, nausea, vomiting, or diarrhea. GENITOURINARY: Denies dysuria or hematuria. SKIN: Denies rash or itching. MUSCULOSKELETAL: Denies back pain, joint pain, or myalgia. NEUROLOGIC: Denies headache, numbness, or weakness. PSYCHIATRIC: Denies anxiety or depression. [facility] Past Medical History Medical History Arthritis Atherosclerotic heart disease of [place] coronary artery with other forms of angina pectoris Cardiac catheterization 03/05/2018 showed ischemic heart disease with no significant occlusive disease identified. Remaining patency of the RCA. Previous infarction of the inferior wall. EF estimated to be 50%. COVID-19 07/27/2020 Essential (primary) hypertension Gastro-esophageal reflux disease without esophagitis Hypertensive heart and chronic kidney disease with heart failure and stage 1 through stage 4 chronic kidney disease, or unspecified chronic kidney disease Hypertensive retinopathy, unspecified eye Mixed hyperlipidemia Rotator cuff tear arthropathy of right shoulder Sleep apnea Systemic lupus erythematosus Surgical History Surgical History History of back surgery Prior fusion surgery to L spine. 10/26/20 had Nerve Stimulator placed for chronic back issues History of heart artery stent History of hysterectomy History of knee surgery Hx of dilat
[2021-12-03 17:15] LABS: Alanine Aminotransferase 22 U/L (4-35); Albumin Level 4.5 g/dL (3.5-5.1); Alkaline Phosphatase 91 U/L (38-126); Anion Gap 7 mmol/L (8-16); Aspartate Amino Transferase 31 U/L (14-36); Bilirubin,Total 0.6 mg/dL (0.2-1.3); Blood Urea Nitrogen 12 mg/dL (7-17); Carbon Dioxide 27 mmol/L (22-30); Chloride 108 mmol/L (98-107); Estimated CRCL calculation 101 ml/min; Estimated Glomerular Filt Rate > 60; Glucose 117 mg/dL (65-110); Partial Thromboplastin Time 33.7 SECONDS (22.3-36.8); Potassium 3.1 mmol/L (3.4-5.0); Sodium 142 mmol/L (137-145)
[2021-12-03] MEDS: MORPHINE SULFATE (*CRX) 4 MG/ML INJ IV PUSH (17:21)
[2021-12-03] MEDS: ONDANSETRON INJ 4 MG/2 ML VIAL IV PUSH (17:21)
[2021-12-03 17:26] LABS: Troponin I < 0.012 ng/mL (0.000-0.034)
--- NOTE | 2021-12-03 17:30 | PC.NURSE ---
[facility] accepted transfer to [facility] per dr miranda shukla 18min trip # [phone]
[2021-12-03] MEDS: niCARdipine 20 MG/200 ML 20 MG/200 ML BAG 50 MG IV CONT (17:39)
--- NOTE | 2021-12-03 17:50 | PC.NURSE ---
Patient care report called to ELIZABETH Gregory at [facility]. All questions answered at this time.
--- NOTE | 2021-12-03 17:55 | PC.NURSE ---
patient d/c with nicardipine gtt
== END 2021-12-03 17:54 | disposition short-term general hospital (02) ==
PROVIDERS: Emergency Provider Emergency Medicine; PCP Family Medicine
DX: I62.9 Nontraumatic intracranial hemorrhage, unspecified (principal); I25.118 Atherosclerotic heart disease of native coronary artery with other forms of angina pectoris; I12.9 Hypertensive chronic kidney disease with stage 1 through stage 4 chronic kidney disease, or unspecified chronic kidney disease; N18.9 Chronic kidney disease, unspecified; E78.2 Mixed hyperlipidemia; G47.30 Sleep apnea, unspecified; M32.9 Systemic lupus erythematosus, unspecified; K21.9 Gastro-esophageal reflux disease without esophagitis; M19.90 Unspecified osteoarthritis, unspecified site; Z86.16 Personal history of COVID-19; Z98.1 Arthrodesis status; Z95.5 Presence of coronary angioplasty implant and graft; Z87.891 Personal history of nicotine dependence
CPT/HCPCS: 36415; 70450; 71045; 80053; 84484; 85025; 85610; 85730; 96374; 96375; 99291; J2270; J2405

== ENCOUNTER 2022-01-21 00:12 | Day surgery (SDC) | payer MEDICARE, SELFPAY ==
--- NOTE | 2021-12-07 11:50 | PC.NURSE ---
12/06/2021 SPOKE WITH GRANDDAUGHTER BENTLEY, PATIENT WAS TRANSFERRED TO HOSPITAL IN [place] ON MONDAY AFTER FALLING SEVERAL TIMES. SHE WAS EXPECTING HER TO BE DISCHARGED 12/06/2021 AND WOULD DISCUSS PROCEDURES WITH NEUROLOGIST CARING FOR HER CURRENTLY IF SHE SHOULD HAVE THE EGD/COLON ON 12/10/2021 AND WHAT THEIR RECOMMENDATION IS REGARDING THIS. 12/07/2021 CALL PLACED TO GRANDDANATALY HAGAN-NO ANS. [facility]SL TO CALL US BACK REGARDING THIS PROCEDURE SCHED. FOR 12/07/21
[2022-01-18 10:04] VITALS: BMI 38.7
[2022-01-21 10:45] VITALS: BP 170/91; PULSE 84; RESP 18; TEMP 36.7; O2SAT 96; BMI 38.0
--- NOTE | 2022-01-21 11:02 | WPDANESEPPF ---
Anes - Initial Pre Proc Eval Procedure: Operation Date: 01/21/22 12:30 Proposed Procedures p Esophagogastroduodenoscopy & Screening Colonoscopy - Sathya Ojeda MD Date/Time: 01/21/22 11:02 Surgeon: Sathya Ojeda MD Pre Op Diagnosis: neoplasm screening, dysphagia Patient Data Age: 71 Gender: F Height: 1.64 m Weight: 104 kg Allergies Allergy/AdvReac Type Severity Reaction Status Date / Time amlodipine Allergy Severe Asthma Verified 01/21/22 10:54 codeine Allergy Severe severe Verified 01/21/22 10:54 reactions thimerosal Allergy Severe HIVES, Verified 01/21/22 10:54 FACE BREAKOUT aspirin Allergy Intermediate Dizziness Verified 01/21/22 10:54 cephalexin Allergy Intermediate Rash Verified 01/21/22 10:54 fluticasone Allergy Intermediate CAUSES Verified 01/21/22 10:54 EPISTAXIS irbesartan Allergy Intermediate Skin Verified 01/21/22 10:54 Reaction lactase Allergy Unknown allergy Verified 01/21/22 10:54 lactose Allergy Unknown allergy Verified 01/21/22 10:54 nitrofurantoin Allergy Unknown ?? Verified 01/21/22 10:54 rash/hives nitroglycerin Allergy Unknown severe Verified 01/21/22 10:54 reaction Penicillins Allergy Unknown COMA Verified 01/21/22 10:54 potassium iodide Allergy Unknown Nausea Verified 01/21/22 10:54 hydrocodone AdvReac Mild Nausea and Verified 01/21/22 10:54 Vomiting Home Medications Medication Instructions Recorded Confirmed Type calcium carbonate 600 mg-vitamin 2 tablet PO DAILY 04/10/20 01/21/22 History D3 5 mcg (200 unit) tablet loratadine 10 mg tablet (Claritin) 10 mg PO DAILY 04/10/20 01/21/22 History acetaminophen 325 mg tablet 500 mg PO Q8H PRN Pain 09/11/20 01/21/22 History (Tylenol) cholecalciferol (vitamin D3) 25 25 mcg PO DAILY 09/11/20 01/21/22 History mcg (1,000 unit) capsule magnesium 250 mg tablet 500 mg PO DAILY 09/11/20 01/21/22 History multivitamin 1 tablet PO DAILY 09/11/20 01/21/22 History furosemide 20 mg tablet 20 mg PO QAM #180 tabs 06/29/21 01/21/22 Rx sertraline 25 mg tablet 25 mg PO DAILY #90 tabs 10/26/21 01/21/22 Rx lisinopril 40 mg tablet 40 mg PO DAILY 12/10/21 01/21/22 History carvedilol 25 mg tablet 25 mg PO BID 01/14/22 01/21/22 History cetirizine 10 mg capsule 10 mg PO DAILY 01/14/22 01/21/22 History clonidine HCl 0.1 mg tablet 0.1 mg PO BID 01/14/22 01/21/22 History diphenhydramine HCl 25 mg capsule 25 mg PO HS 01/14/22 01/21/22 History (Benadryl) duloxetine 60 mg capsule,delayed 60 mg PO DAILY 01/14/22 01/21/22 History release fenofibrate 160 mg tablet 160 mg PO DAILY 01/14/22 01/21/22 History oxybutynin chloride 5 mg tablet 5 mg PO TID 01/14/22 01/21/22 History potassium chloride 20 mEq 20 meq PO DAILY 01/14/22 01/21/22 History tablet,extended release(part/cryst) rosuvastatin 10 mg tablet 10 mg PO DAILY 01/14/22 01/21/22 History gabapentin 300 mg capsule See Rx Instructions .Route 01/17/22 01/21/22 Rx .COMPLEX #200 caps pantoprazole 40 mg tablet,delayed See Rx Instructions .Route 01/17/22 01/21/22 Rx release .COMPLEX #100 tabs Patient hx anesthesia problems: none Family hx anesthesia problems: none Results Review: All pre-operative results and documents have been reviewed as part of the pre-operative evaluation. [facility] Past Medical History Medical History Arthritis Atherosclerotic heart disease of [place] coronary artery with other forms of angina pectoris Cardiac catheterization 03/05/2018 showed ischemic heart disease with no significant occlusive disease identified. Remaining patency of the RCA. Previous infarction of the inferior wall. EF estimated to be 50%. Cerebral brain hemorrhage COVID-19 07/27/2020 Essential (primary) hypertension Gastro-esophageal reflux disease without esophagitis Hypertensive heart and chronic kidney disease with heart failure and stage 1 through stage 4 chronic kidney disease, or unspecified chroni
[2022-01-21] MEDS: LACTATED RINGERS 1,000 ML 150 ML IV CONT (11:16)
--- NOTE | 2022-01-21 11:19 | WPDGICN ---
Assessment and Plan Assessment and plan (1) Dysphagia: Code(s): R13.10 - Dysphagia, unspecified Status: Acute Assessment and Plan: patient complains of difficulty swallowing food catching in the throat. Plan is for EGD to assess more thoroughly. Hopefully we can exclude esophageal narrowing if narrowing is present dilatation may occur. Patient does have a history of heartburn acid reflux poorly responsive to pantoprazole suggesting underlying acid reflux disease (2) Encounter for screening colonoscopy: Code(s): Z12.11 - Encounter for screening for malignant neoplasm of colon Status: Acute Assessment and Plan: neoplasia screening advised because of her age she has no specific risk factors identified on questioning about colon cancer. (3) Cerebral brain hemorrhage: Code(s): I61.9 - Nontraumatic intracerebral hemorrhage, unspecified Status: Acute Assessment and Plan: Patient recovering from CVA because of intracerebral brain bleeding. Continued follow-up by primary care advised. (4) Morbid obesity: Code(s): E66.01 - Morbid (severe) obesity due to excess calories Status: Acute Assessment and Plan: Patient is obese. Weight loss, calorie restriction, increase exercise, are all encourage. (5) Esophageal reflux: Qualifiers: Esophagitis presence: esophagitis presence not specified Qualified Code(s): K21.9 - Gastro-esophageal reflux disease without esophagitis Code(s): K21.9 - Gastro-esophageal reflux disease without esophagitis Status: Acute Assessment and Plan: Patient with ongoing heartburn despite taking pantoprazole 40mg p.o. daily suggest acid reflux disease. This will be evaluated at time of EGD. GI Consult Note Consult date/time: 01/21/22 11:19 Reason for consult: Dysphagia and neoplasia screening. HPI: Laura Butler is a 71 year old female Referred because of difficulty swallowing. Patient also desires neoplasia screening. Patient reports difficulty swallowing for many years. She states that food will catch in the throat. This is relieved with regurgitating and spitting up the food. She points to the throat when she notices this happening. She also reports significant heartburn. Has previously been felt to have GE reflux disease. Patient has been maintained on Protonix 40mg p.o. daily for many years. She states this does not control her heartburn. Patient denies any bleeding. Her weight has maintained stable. Additionally patient desires neoplasia screening. She states that her weight appetite bowel movements are normal. She has had no recent colonoscopies. Her family history is noncontributory. Neoplasia screening colonoscopy is advised. Patient's recent past medical history is significant this 6 weeks ago she had intracerebral bleeding. Since that time she has had slow recovery in currently uses a walker to ambulate. Review of Systems Review of Systems: Review of systems noncontributory. [facility] Past Medical History Medical History Arthritis Atherosclerotic heart disease of [place] coronary artery with other forms of angina pectoris Cardiac catheterization 03/05/2018 showed ischemic heart disease with no significant occlusive disease identified. Remaining patency of the RCA. Previous infarction of the inferior wall. EF estimated to be 50%. Cerebral brain hemorrhage COVID-19 07/27/2020 Essential (primary) hypertension Gastro-esophageal reflux disease without esophagitis Hypertensive heart and chronic kidney disease with heart failure and stage 1 through stage 4 chronic kidney disease, or unspecified chronic kidney disease Hypertensive retinopathy, unspecified eye Mixed hyperlipidemia Rotator cuff tear arthropathy of right shoulder Sleep apnea Systemic lupus erythematosus Surgical History Surgical History (Reviewed
[2022-01-21 12:05] VITALS: BP 145/78; PULSE 80; RESP 21; O2SAT 99
[2022-01-21 12:15] VITALS: BP 163/81; PULSE 71; RESP 22; O2SAT 97
[2022-01-21 12:28] VITALS: BP 162/79; PULSE 74; RESP 22; O2SAT 98
== END 2022-01-21 12:40 | disposition home or self-care (01) ==
PROVIDERS: PCP Family Medicine; Visit Provider Internal Medicine Gastroenterology
PROC: 0DJ08ZZ Inspection of Upper Intestinal Tract, Via Natural or Artificial Opening Endoscopic (ICD-10-PCS; CPT 43235; principal; 2022-01-21 12:30)
DX: Z12.11 Encounter for screening for malignant neoplasm of colon (principal); R13.10 Dysphagia, unspecified; K31.7 Polyp of stomach and duodenum; K21.9 Gastro-esophageal reflux disease without esophagitis; I25.10 Atherosclerotic heart disease of native coronary artery without angina pectoris; I13.0 Hypertensive heart and chronic kidney disease with heart failure and stage 1 through stage 4 chronic kidney disease, or unspecified chronic kidney disease; N18.9 Chronic kidney disease, unspecified; H35.039 Hypertensive retinopathy, unspecified eye; E78.2 Mixed hyperlipidemia; E66.01 Morbid (severe) obesity due to excess calories; M32.9 Systemic lupus erythematosus, unspecified; G47.30 Sleep apnea, unspecified; Z98.1 Arthrodesis status; Z86.73 Personal history of transient ischemic attack (TIA), and cerebral infarction without residual deficits; Z95.5 Presence of coronary angioplasty implant and graft
CPT/HCPCS: 43251; G0121; 88305; 88342; J2704; J7120

== ENCOUNTER 2022-03-18 12:29 | Outpatient (CLI) | payer MEDICARE, SELFPAY ==
[2022-03-18 19:54] LABS: Appearance Urine Clear (Clear); Bilirubin Urine 1+ (Negative); Blood Urine Negative (Negative); Color Urine Yellow (Yellow); Glucose Urine UA Negative (Negative); Ketones Urine Trace mg/dL (Negative); Leukocyte Esterase Ur 2+ LEU/UL (NEGATIVE); Nitrate Urine Negative (Negative); Protein Urine Trace mg/dL (Negative); Specific Grav Ur 1.025 (1.001-1.035); Urobilinogen Urine 0.2 mg/dL (<2.0); pH Urine 5.5 (5.0-9.0)
[2022-03-18 20:05] LABS: Bacteria Urine Trace /hpf; Calcium Oxalate Crystals Urine Many /hpf; Mucus Urine Rare /lpf; Squamous Epithelial Cell Urine Moderate /hpf (Few); WBC Urine 16-20 /hpf (0-3)
[2022-03-18 20:10] LABS: Add Urine Microscopic? YES
== END 2022-03-18 12:30 | disposition home or self-care (01) ==
LOC: ANHGOSHLAB 12:30
PROVIDERS: PCP Family Medicine; Visit Provider Family Medicine
DX: R39.89 Other symptoms and signs involving the genitourinary system (principal); N32.81 Overactive bladder
CPT/HCPCS: 81001

== ENCOUNTER 2022-06-03 14:33 | Outpatient (CLI) | payer MEDICARE, SELFPAY | END 2022-06-03 14:34 | disposition home or self-care (01) | PROVIDERS: PCP Family Medicine; Visit Provider Family Medicine | DX: E78.5 Hyperlipidemia, unspecified (principal) | CPT/HCPCS: 99199; 36415 ==

== ENCOUNTER 2023-02-15 10:57 | Outpatient (CLI) | payer MEDICARE, SELFPAY ==
[2023-02-15 16:14] LABS: Kit Draw Collected
== END 2023-02-15 10:58 | disposition home or self-care (01) ==
LOC: ANHGOSHLAB 10:59
PROVIDERS: PCP Family Medicine; Visit Provider Family Medicine
DX: E78.5 Hyperlipidemia, unspecified (principal)
CPT/HCPCS: 36415

== ENCOUNTER 2024-01-26 10:20 | Outpatient (CLI) | payer MEDICARE, SELFPAY ==
--- NOTE | ~2024-01-26 | XR_ITS ---
AP view of the pelvis and AP and lateral views of the right hip Clinical history: Pain Findings: No acute fracture or dislocation is seen. Osseous alignment is anatomic. Moderate right hip joint degenerative change present. Minimal left hip joint degenerative change present. Fusion hardwa re at L4-L5 present. There is mild degenerative change of the SI joints. Soft tissues are unremarkabl e. Impression: Moderate right hip joint degenerative change. Minimal left hip joint degenerative change. Reviewed, dictated and finalized at location M. Impression: Moderate right hip joint degenerative change. Minimal left hip joint degenerative change.
== END 2024-01-26 10:21 ==
PROVIDERS: PCP Family Medicine; Visit Provider Family Medicine
DX: M25.551 Pain in right hip (principal)
CPT/HCPCS: 73502

== ENCOUNTER 2024-04-04 09:45 | Outpatient (RCR) | payer MEDICARE, SELFPAY ==
--- NOTE | 2024-03-16 11:52 | PTOPEVAL1 ---
Assessment and note entered by Marcy Marsh, PT Evaluation Information Assessment Status Evaluation ICD-10 Condition Codes (PT) Difficulty Walking R26.2,R26.9,Weakness R53.1 Onset approx Subjective Information Pt c/o pain to R hip, reports after doing a lot of walking, it hurts alot, also to the groin area, sometimes when the pain is bad, it goes down the whole leg. Has been having hip pain for almost 15 yrs now, B hip hurts but R > L. states uses a cane for when out in the community sometimes uses a rollator when pain is bad but rarely. denies using an on a daily. Has 3 MANDIE with 1 HR, reports that stairs are getting difficult to navigate. Has 3 cats at home, tends to play with her cane, so she usually just hang on to furniture when walking around the house. Has h/o vertigo usually when getting up to standing from laying down, has h/o brain bleed. Assessment PT Clinical Summary Pt is a 73yo female who presents to therapy with c /o increasing lowback and R hip/groin pain which impacts her ability to perform bed mobility, transfers and gait. She has pertinent medical h/o cerebral brain hemorrhage and arthritis. The x- rays also show a posterior fusion L4-5 pedicle screws and lateral bone graft mass, also an electrical stimulator projects over the upper lumbar region. She demos significant ROM deficits to lumbar spine and BLE, weakness, postural deficits and Trendelenburg gait pattern. She will benefit from skilled PT for manual therapy to manage pain and to improve mobility, exercises to improve hip stabilization and BLE strength, balance and gait training with using appropriate AD to improve gait mechanics to reduce risk for falls and improve overall functional mobility and safety. Plan of Care Interventions Gait Training,Hot Pack/Cold Pack,Manual Therapy, Neuro Re-education,Patient/Caregiver Education, Therapeutic Activities,Therapeutic Exercise Other Interventions IASTM, Dry Needling PT Services Indicated Yes Treatment Frequency and 2x/wk x 8 visits Duration These treatments will address the objective and functional deficits as defined above. The patient will be advanced safely and appropriately in order for the patient to progress towards his/her prior level of function. Additional exercises will be introduced and as well as a comprehensive home exercise program upon discharge, if needed, ?to ensure carryover of functional gains achieved in the clinic. This treatment plan has been revi
--- NOTE | 2024-04-02 11:10 | PCPTNOTE ---
Pt 28 min tardy this date. Pt to reschedule.
--- NOTE | 2024-04-09 09:35 | PCPTNOTE ---
Pt no showed visit today due called to remind pt of next visit but not voicemail is set up.
--- NOTE | 2024-04-11 10:58 | PCPTNOTE ---
I reached out to Cell phone when patient No Showed appointment today. Daughter answered and reported that she had potential stroke and patient has been transferred to [facility] and currently on acute care. PT will hold and await recommendation for continuity pending medical status.
--- NOTE | 2024-04-11 11:48 | PTOPDC ---
Assessment and note entered by Vik Connolly, PT Evaluation Information Assessment Status Discharge - Pt Not Present ICD-10 Condition Codes (PT) Difficulty Walking R26.2,R26.9,Weakness R53.1 Onset approx Subjective Information I reached out to patient Cell following 2 No Show appointments this week. Spoke with daughter and was informed that Ms. Sanchez was hospitalized at [facility] with possible CVA. Assessment PT Clinical Summary Patient will be discharged from skilled therapy at this time due to change in medical status. Therapy will be available for Evaluation pending medical status under new MD orders. Plan of Care PT Services Indicated D/C at this time
== END 2024-05-27 10:01 | disposition home or self-care (01) ==
LOC: ANHPT 09:45
PROVIDERS: PCP Family Medicine; Visit Provider Orthopaedic Surgery
DX: M16.12 Unilateral primary osteoarthritis, left hip (principal)
CPT/HCPCS: 97110; 97112; 97116; 97161

== ENCOUNTER 2024-04-08 21:32 | Emergency (ER) | payer MEDICARE, SELFPAY ==
--- NOTE | ~2024-04-08 | XR_ITS ---
EXAMINATION: XR chest 1V portable Exam Date/Time: 04/08/2024 21:55 CDT HISTORY: HIGH BLOOD PRESSURE, nausea and vomiting Comparison: None. RESULT: Lines, tubes, and devices: Stimulator lead over the midthoracic spine. Lungs and pleura: Mild streaky bibasilar opacities likely represent scar/atelectasis. Cardiomediastinal silhouette: Stable. Other: No acute osseous or upper abdominal finding. IMPRESSION: No acute cardiopulmonary process. Reviewed, dictated and finalized at location K.
--- NOTE | ~2024-04-08 | CT_ITS ---
EXAMINATION: CTA brain carotid DATE: 04/08/2024 23:26 INDICATION: vertigo/nystagmu; elevated BP, HENNING, n/v TECHNIQUE: Computed tomographic angiography (CTA) of the head was performed without and with 100 mL O mnipaque-350 intravenous contrast. CTA of the neck was performed with intravenous contrast. Automated exposure control and iterative reconstruction technique were employed. The dose-length product was 1 625.77 mGy-cm. Maximum intensity projection and volume rendered 3D-reconstructions were created by daryl verdin technologist on a separate workstation. COMPARISON: CT brain 12/03/2021. FINDINGS: CT BRAIN: No acute large vessel infarct, intracranial hemorrhage, mass, or hydrocephalus. Moderate atrophy and chronic white matter change. Atherosclerotic intracranial calcification. Bilateral lens replacements. CTA HEAD: No large vessel occlusion, aneurysm, high flow vascular malformation, nidus or extravasation. Hypopla stic right anterior cerebral artery. The left distal vertebral artery terminates in the left PICA, a normal variant. Hypoplastic right distal vertebral artery and basilar artery. Hypoplastic left P1 seg ment. Posterior flow occurs predominantly via the bilateral posterior communication arteries. Symmetr ic parenchymal enhancement. Patent cerebral veins. CTA NECK: Aortic arch and proximal great vessels: Bovine arch anatomy. The left vertebral artery origin is dire ctly off the arch. Mild arch calcifications. Right common carotid, carotid bifurcation, and internal carotid artery: Mild calcified plaque at the bifurcation.There is 0% stenosis of the proximal right internal carotid artery relative to normal dis millie artery lumen diameter (NASCET criteria). Left common carotid, carotid bifurcation, and internal carotid artery: Moderate calcified plaque at t he bifurcation.There is 14% stenosis of the proximal left internal carotid artery relative to normal distal artery lumen diameter (NASCET criteria). Vertebral arteries: No significant plaque or stenosis. Right vertebral artery is dominant, Other findings: Degenerative changes in the cervical spine. IMPRESSION: No acute intracranial process. No large vessel intracranial occlusion, high-grade intracranial stenosis, or aneurysm. No carotid or vertebral artery occlusion, dissection, or significant stenosis. Reviewed, dictated and finalized at location K. IMPRESSION: No acute intracranial process. No large vessel intracranial occlusion, high-grade intracranial stenosis, or an eurysm. No carotid or vertebral artery occlusion, dissection, or significant stenosis.
[2024-04-08 21:33] VITALS: PULSE 77
[2024-04-08 21:38] VITALS: BP 228/98; PULSE 73; RESP 19; TEMP 36.3; O2SAT 98
--- NOTE | 2024-04-08 21:43 | ECG_ITS ---
Test Date: 2024-04-08 22:17:07 Measurements Intervals [place] Rate: 73 P: -17 OK: 152 QRS: 13 QRSD: 122 T: 31 QT: 428 QTc: 473 Interpretive Statements SINUS RHYTHM POSSIBLE LEFT ATRIAL ENLARGEMENT [-0.1mV P-WAVE IN V1/V2] MODERATE INTRAVENTRICULAR CONDUCTION DELAY [110+ ms QRS DURATION] No previous ECG available for comparison Electronically Signed On 04-09-2024 08:54:25 CDT by Mirza Corey M.D.
[2024-04-08 21:54] VITALS: BP 228/98; PULSE 91; RESP 24; O2SAT 96
[2024-04-08] MEDS: diphenhydrAMINE HCl INJ 50 MG/ML VIAL 25 MG IV PUSH (22:04)
[2024-04-08] MEDS: METOCLOPRAMIDE HCL INJ 10 MG/2 ML VIAL IV PUSH (22:05)
[2024-04-08] MEDS: LABETALOL HCL INJ 100 MG/20 ML VIAL 10 MG IV PUSH (22:06)
[2024-04-08 22:13] LABS: Basophils Absolute Auto 0.1 K/mm3 (0.0-0.1); Basophils Percent Auto 0.6 % (0.2-1.2); Eosinophils Absolute Auto 0.2 K/mm3 (0-0.3); Eosinophils Percent Auto 1.6 % (0-4.4); Hematocrit 42.5 % (37.0-47.0); Hemoglobin 14.5 g/dL (12.0-15.0); Immature Granulocyte Absolute 0.03 K/mm3 (0.00-0.031); Immature Granulocyte Percent A 0.3 % (0-0.5); Lymphocytes Absolute Auto 1.99 K/mm3 (0.9-3.2); Lymphocytes Percent Auto 21.1 % (18.3-44.2); Mean Corpuscular HGB Conc 34.1 g/dl (32-36); Mean Corpuscular Hemoglobin 29.7 pg (26-34); Mean Corpuscular Volume 87.1 fl (80-100); Mean Platelet Volume 10.1 fl (7.4-10.4); Monocytes Absolute Auto 0.6 K/mm3 (0.1-0.6); Monocytes Percent Auto 5.9 % (2.6-8.5); Neutrophils Absolute Auto 6.7 K/mm3 (1.3-6.7); Neutrophils Percent Auto 70.5 % (45.5-73.1); Platelet Count Result 227 k/mm3 (150-375); Red Blood Count 4.88 M/mm3 (4.2-5.4); Red Cell Distribution Width 12.8 % (11.5-14.5); White Blood Count 9.4 K/mm3 (4.5-10.0)
[2024-04-08 22:22] LABS: Alanine Aminotransferase 16 U/L (6-35); Albumin Level 4.6 g/dL (3.5-5.1); Alkaline Phosphatase 80 U/L (38-126); Anion Gap 10 mmol/L (4-12); Aspartate Amino Transferase 24 U/L (14-36); Bilirubin,Total 0.7 mg/dL (0.2-1.3); Blood Urea Nitrogen 17 mg/dL (7-17); Calcium 9.2 mg/dL (8.4-10.2); Carbon Dioxide 25 mmol/L (22-30); Chloride 102 mmol/L (98-107); Estimated CRCL calculation 81 ml/min; Estimated Glomerular Filt Rate > 60; Glucose 124 mg/dL (65-110); Potassium 3.2 mmol/L (3.4-5.0); Sodium 137 mmol/L (137-145)
[2024-04-08 22:25] LABS: Partial Thromboplastin Time 28.8 Seconds (22.3-36.8)
[2024-04-08 22:30] VITALS: BP 226/110; PULSE 82; RESP 22; O2SAT 96
[2024-04-08 22:35] LABS: Troponin I < 0.012 ng/mL (0.000-0.034)
[2024-04-08 22:51] VITALS: BP 190/87; PULSE 95
[2024-04-08] MEDS: LABETALOL HCL INJ 100 MG/20 ML VIAL 20 MG IV PUSH (23:04)
[2024-04-08 23:35] VITALS: BP 195/90; BP 200/89; PULSE 92; RESP 20; RESP 22; O2SAT 91; O2SAT 94
[2024-04-08 23:43] LABS: NT Pro B Type Natriuretic Pept 526 pg/mL (19.9-100)
[2024-04-09] VITALS (14 sets, daily range): BP systolic 165–192; BP diastolic 83–102; PULSE 88–99; RESP 13–24; O2SAT 88–99
[2024-04-09] MEDS: LABETALOL HCL INJ 100 MG/20 ML VIAL 20 MG IV PUSH ×2 (00:02→04:10)
[2024-04-09] MEDS: HYDROmorphone HCL INJ (*CRX) 1 MG/ML SYR 0.5 MG IV PUSH (00:03)
[2024-04-09] MEDS: METOCLOPRAMIDE HCL INJ 10 MG/2 ML VIAL IV PUSH (00:04)
[2024-04-09] MEDS: diphenhydrAMINE HCl INJ 50 MG/ML VIAL 25 MG IV PUSH (00:04)
--- NOTE | 2024-04-09 00:36 | ED.HA ---
HPI - Headache General Chief Complaint: Headache Stated Complaint: HENNING, N/V, HIGH B/P Time Seen by Provider: 04/08/24 21:54 History of Present Illness HPI Narrative: Around 5 tonight patient has only started having severe headache, nausea, vomiting, as well dizziness with a sensation of room spinning around her. Has a history of CVA and cardiac disease. Related Data Home Medications Medication Instructions Recorded Confirmed calcium carbonate 600 mg-vitamin 2 tablet PO DAILY 04/10/20 03/04/24 D3 5 mcg (200 unit) tablet loratadine 10 mg tablet (Claritin) 10 mg PO DAILY 04/10/20 03/04/24 acetaminophen 325 mg tablet 500 mg PO Q8H PRN Pain 09/11/20 03/04/24 (Tylenol) cholecalciferol (vitamin D3) 25 25 mcg PO DAILY 09/11/20 03/04/24 mcg (1,000 unit) capsule magnesium 250 mg tablet 500 mg PO DAILY 09/11/20 03/04/24 multivitamin 1 tablet PO DAILY 09/11/20 03/04/24 cetirizine 10 mg capsule 10 mg PO DAILY 01/14/22 03/04/24 diphenhydramine HCl 25 mg capsule 25 mg PO HS 01/14/22 03/04/24 (Benadryl) lactobacillus combination no.9 4 4,000 mmu cells PO DAILY 03/09/22 03/04/24 billion cell capsule (Adult 50 Plus Probiotic) Allergies Allergy/AdvReac Type Severity Reaction Status Date / Time amlodipine Allergy Severe Asthma Verified 03/01/24 09:43 codeine Allergy Severe severe Verified 03/01/24 09:43 reactions thimerosal Allergy Severe HIVES, Verified 03/01/24 09:43 FACE BREAKOUT aspirin Allergy Intermediate Dizziness Verified 03/01/24 09:43 cephalexin Allergy Intermediate Rash Verified 03/01/24 09:43 fluticasone Allergy Intermediate CAUSES Verified 03/01/24 09:43 EPISTAXIS irbesartan Allergy Intermediate Skin Verified 03/01/24 09:43 Reaction lactase Allergy Unknown allergy Verified 03/01/24 09:43 lactose Allergy Unknown allergy Verified 03/01/24 09:43 nitrofurantoin Allergy Unknown ?? Verified 03/01/24 09:43 rash/hives nitroglycerin Allergy Unknown severe Verified 03/01/24 09:43 reaction Penicillins Allergy Unknown COMA Verified 03/01/24 09:43 potassium iodide Allergy Unknown Nausea Verified 03/01/24 09:43 hydrocodone AdvReac Mild Nausea and Verified 03/01/24 09:43 Vomiting Review of Systems Review of Systems: All systems reviewed & are unremarkable except as noted in HPI and below [facility] Past Medical History Medical History (Updated 04/09/24 @ 05:25 by Samantha Doty MD) Arthritis Atherosclerotic heart disease of [place] coronary artery with other forms of angina pectoris Cardiac catheterization 03/05/2018 showed ischemic heart disease with no significant occlusive disease identified. Remaining patency of the RCA. Previous infarction of the inferior wall. EF estimated to be 50%. Cerebral brain hemorrhage COVID-19 07/27/2020 Essential (primary) hypertension Gastro-esophageal reflux disease without esophagitis History of stroke Hypertensive heart and chronic kidney disease with heart failure and stage 1 through stage 4 chronic kidney disease, or unspecified chronic kidney disease Hypertensive retinopathy, unspecified eye Mixed hyperlipidemia Rotator cuff tear arthropathy of right shoulder Sleep apnea Systemic lupus erythematosus Surgical History Surgical History History of back surgery Prior fusion surgery to L spine. 10/26/20 had Nerve Stimulator placed for chronic back issues History of heart artery stent History of hysterectomy History of knee surgery Hx of dilation and curettage Status post decompression of ulnar nerve at elbow Family History Family History Mother Diabetes mellitus Patient's mother is Father Patient's father is Family history of cardiovascular disease Other Family history of kidney disease Hypertension Social History Social History (Updated 03/01/24 @ 09:46 by Frances Baker CMA)
[2024-04-09] MEDS: MORPHINE SULFATE (*CRX) 4 MG/ML INJ IV PUSH (04:10)
[2024-04-09] MEDS: ONDANSETRON INJ 4 MG/2 ML VIAL IV PUSH (04:13)
--- NOTE | 2024-04-09 05:41 | PC.NURSE ---
Called [facility] transfer center at [phone]. At this time patient still waiting for bed.
== END 2024-04-09 09:19 | disposition short-term general hospital (02) ==
PROVIDERS: Emergency Provider Emergency Medicine; PCP Family Medicine
DX: I10 Essential (primary) hypertension (principal); I13.0 Hypertensive heart and chronic kidney disease with heart failure and stage 1 through stage 4 chronic kidney disease, or unspecified chronic kidney disease; N18.9 Chronic kidney disease, unspecified; I50.9 Heart failure, unspecified; R51.9 Headache, unspecified; R42 Dizziness and giddiness; I25.10 Atherosclerotic heart disease of native coronary artery without angina pectoris; E78.2 Mixed hyperlipidemia; Z87.891 Personal history of nicotine dependence
CPT/HCPCS: 36415; 70496; 70498; 71045; 80053; 83880; 84484; 85025; 85610; 85730; 93005; 96374; 96375; 96376; 99285; J1170; J1200; J2270; J2405; J2765; Q9967

== ENCOUNTER 2024-05-03 12:59 | Observation (INO) | payer MEDICARE, SELFPAY ==
--- NOTE | ~2024-05-03 | XR_ITS ---
XR chest 2V 05/03/2024 13:45 Indication: Recent stroke. History of recent weakness. Procedure: 2 view chest Comparison: Comparison to multiple prior studies sequentially, with oldest reviewed study dated 04/08. Findings: Bibasilar airspace disease, consistent with pneumonia. Possible small left effusion. No pne umothorax. Stable cardiomegaly. Spinal stimulator leads overlie the mid thoracic spine. Impression: 1: Bibasilar pneumonia. Reviewed, dictated and finalized at location B. Impression: 1: Bibasilar pneumonia.
--- NOTE | ~2024-05-03 | CT_ITS ---
EXAMINATION: CT brain wo con DATE: 05/03/2024 15:55 INDICATION: Weakness TECHNIQUE: Computed tomography (CT) of the head was performed without intravenous contrast. Sagittal and coronal reconstructions were performed. The mA was adjusted according to patient size. Iterative reconstruction technique was employed. The dose-length product was 681.00 mGy-cm. COMPARISON: head CT dated 04/08/2024 FINDINGS: Small old lacunar infarcts at the heads of the bilateral caudate nuclei and at the left lentiform nuc leus. Additional likely chronic small infarcts at the left side of the nadir and at the left cerebella r hemisphere. There is mild scattered white matter hypoattenuation consistent with chronic small vess el ischemic disease. No acute intracranial hemorrhage, acute infarction or abnormal extra axial flui d collection. Ventricles are normal and symmetric. No mass/mass effect. Changes of bilateral intraocu lar lens replacement. The orbits, paranasal sinuses and mastoid air cells are normal. IMPRESSION: 1. A few scattered old infarcts at the bilateral caudate nuclei, left lentiform nucleus, left nadir an d left cerebellar hemisphere. No acute intracranial process. Reviewed, dictated and finalized at location A. IMPRESSION: 1. A few scattered old infarcts at the bilateral caudate nuclei, left lentiform nucleus, left nadir and left cerebellar hemisphere. No acute intracranial proce ss.
--- NOTE | ~2024-05-03 | XR_ITS ---
EXAMINATION: XR pelvis 1-2V DATE: 05/03/2024 15:59 INDICATION: Fall. TECHNIQUE: An anteroposterior view of the pelvis was obtained. COMPARISON: Pelvis radiograph 01/16/2024 FINDINGS: There is lumbar levocurvature and severe spondylosis. There are changes of anterior and pos terior fusion procedures at L4-L5. There is moderate osteoarthritis and mild left hip osteoarthritis. IMPRESSION: 1. No fracture. 2. Moderate right hip osteoarthritis and mild left hip osteoarthritis. Reviewed, dictated and finalized at location A.
--- NOTE | 2024-05-03 13:12 | ECG_ITS ---
Test Date: 2024-05-03 13:12:38 Measurements Intervals [place] Rate: 82 P: 69 [place]: 182 QRS: 5 QRSD: 110 T: 38 QT: 399 QTc: 468 Interpretive Statements SINUS RHYTHM INCOMPLETE LEFT BUNDLE BRANCH BLOCK CONSIDER INFERIOR INFARCT, AGE INDETERMINATE BASELINE ARTIFACT- I, II, III, AVR, AVL, AVF, V1 ABNORMAL ECG Compared to ECG 04/08/2024 22:17:07 NO SIGNIFICANT CHANGE Electronically Signed On 05-03-2024 15:27:38 CDT by Hao Zhou D.O.
[2024-05-03 13:14] VITALS: BP 119/56; PULSE 83; RESP 16; TEMP 36.2; O2SAT 99
--- NOTE | 2024-05-03 15:41 | ED.WEAKNESS ---
HPI - Weakness General Chief complaint: Weakness <Eneida Maldonado PA-C - Last Filed: 05/08/24 10:47> Stated complaint: weakness <Eneida Maldonado PA-C - Last Filed: 05/08/24 10:47> Time Seen by Provider: 05/03/24 15:41 <Eneida Maldonado PA-C - Last Filed: 05/08/24 10:47> Focused HPI: this is a 73-year-old female that presents to the emergency department for generalized weakness. Reports she was recently discharged from rehab after a stroke. She has become more weak over the last couple of days. She has experienced some falls due to this. No focal complaints. Denies any current pain. GENERAL: Well-appearing, well-nourished, and in no acute distress. HEAD: Normocephalic, atraumatic. CHEST: Clear to auscultation. ?No respiratory distress. HEART: Regular rate and rhythm.? NEURO: ?Alert and oriented x3. Patient screened in triage and initial orders placed.? ?Additional care and disposition to be based upon?diagnostic testing and treatment. <Eneida Maldonado PA-C - Last Filed: 05/08/24 10:47> History of Present Illness HPI Narrative: 73-year-old female presenting with generalized weakness. She was recently hospitalized at [facility] for a stroke. She was discharged to rehab and had significant improvement so she was able to go back home about 2 days ago. Her family states that over the last 2 days she has been increasingly weaker and has been unable to go up steps and do other things that she was doing and rehab. They saw her PCP who wanted her to be re-evaluated. Patient denies any new pain. Complains of persistent right lower chest wall pain. No focal weakness or numbness. No speech changes. No facial droop. Alert and oriented x4. <Anne Flores MD - Last Filed: 05/08/24 12:54> Related Data Home medications: Home Medications Medication Instructions Recorded Confirmed loratadine 10 mg tablet (Claritin) 10 mg PO DAILY 04/10/20 05/04/24 acetaminophen 325 mg tablet 650 mg PO Q8H PRN Pain 09/11/20 05/04/24 (Tylenol) magnesium 250 mg tablet 500 mg PO HS 09/11/20 05/04/24 multivitamin 1 tablet PO DAILY 09/11/20 05/04/24 carvedilol 25 mg tablet 25 mg PO BIDWMEAL 04/16/24 05/04/24 clopidogrel 75 mg tablet 75 mg PO DAILY 04/16/24 05/04/24 cyanocobalamin (vitamin B-12) 5,000 mcg sublingual DAILY 04/16/24 05/04/24 5,000 mcg sublingual tablet (Vitamin B-12) duloxetine 60 mg capsule,delayed 60 mg PO BID 04/16/24 05/04/24 release fenofibrate 160 mg tablet 160 mg PO DAILY 04/16/24 05/04/24 gabapentin 100 mg capsule 300 mg PO BID 04/16/24 05/04/24 oxybutynin chloride 5 mg tablet 5 mg PO BID 04/16/24 05/04/24 pantoprazole 40 mg tablet,delayed 40 mg PO DAILY 04/16/24 05/04/24 release potassium chloride 20 mEq 20 meq PO DAILY 04/16/24 05/04/24 tablet,extended release(part/cryst) rosuvastatin 10 mg tablet 40 mg PO DAILY 04/16/24 05/04/24 sertraline 25 mg tablet 25 mg PO HS 04/16/24 05/04/24 <Eneida Maldonado PA-C - Last Filed: 05/08/24 10:47> Allergies/Adverse reactions: Allergies Allergy/AdvReac Type Severity Reaction Status Date / Time amlodipine Allergy Severe Asthma Verified 05/01/24 13:48 codeine Allergy Severe severe Verified 05/01/24 13:48 reactions thimerosal Allergy Severe HIVES, Verified 05/01/24 13:48 FACE BREAKOUT aspirin Allergy Intermediate Dizziness Verified 05/01/24 13:48 cephalexin Allergy Intermediate Rash Verified 05/01/24 13:48 fluticasone Allergy Intermediate CAUSES Verified 05/01/24 13:48 EPISTAXIS irbesartan Allergy Intermediate Skin Verified 05/01/24 13:48 Reaction lactase Allergy Unknown allergy Verified 05/01/24 13:48 lactose Allergy Unknown allergy Verified 05/01/24 13:48 nitrofurantoin Allergy Unknown ?? Verified 05/01/24 13:48 rash/hives nitroglycerin Allergy Unknown severe Verified 05/01/24 13:48 reaction Penicillins Allergy Unknown COMA Verified 05/01/24 13:48 potassium iodide Allergy Unknown Nausea Verified 09
[2024-05-03 19:19] VITALS: PULSE 83
[2024-05-03] MEDS: SODIUM CHLORIDE 0.9% IV 1,000 ML 999 ML IV CONT (20:28)
[2024-05-03 20:31] LABS: Basophils Percent Auto 0.5 % (0.2-1.2); Eosinophils Absolute Auto 0.3 K/mm3 (0-0.3); Eosinophils Percent Auto 3.9 % (0-4.4); Hematocrit 35.9 % (37.0-47.0); Immature Granulocyte Absolute 0.15 K/mm3 (0.00-0.031); Immature Granulocyte Percent A 1.9 % (0-0.5); Lymphocytes Absolute Auto 2.17 K/mm3 (0.9-3.2); Lymphocytes Percent Auto 27.6 % (18.3-44.2); Mean Corpuscular HGB Conc 33.4 g/dl (32-36); Mean Corpuscular Hemoglobin 29.7 pg (26-34); Mean Corpuscular Volume 88.9 fl (80-100); Mean Platelet Volume 9.3 fl (7.4-10.4); Monocytes Absolute Auto 0.8 K/mm3 (0.1-0.6); Monocytes Percent Auto 9.7 % (2.6-8.5); Neutrophils Absolute Auto 4.4 K/mm3 (1.3-6.7); Neutrophils Percent Auto 56.4 % (45.5-73.1); Platelet Count Result 303 k/mm3 (150-375); Red Blood Count 4.04 M/mm3 (4.2-5.4); Red Cell Distribution Width 12.7 % (11.5-14.5); White Blood Count 7.9 K/mm3 (4.5-10.0)
[2024-05-03 20:43] LABS: Alanine Aminotransferase 13 U/L (6-35); Albumin Level 3.5 g/dL (3.5-5.1); Alkaline Phosphatase 51 U/L (38-126); Anion Gap 9 mmol/L (4-12); Aspartate Amino Transferase 28 U/L (14-36); Blood Urea Nitrogen 18 mg/dL (7-17); Calcium 8.9 mg/dL (8.4-10.2); Carbon Dioxide 24 mmol/L (22-30); Chloride 101 mmol/L (98-107); Estimated CRCL calculation 87 ml/min; Estimated Glomerular Filt Rate > 60; Glucose 113 mg/dL (65-110); Potassium 4.2 mmol/L (3.4-5.0); Sodium 134 mmol/L (137-145)
[2024-05-03 21:03] VITALS: BP 160/98; PULSE 83; RESP 24; O2SAT 97
[2024-05-03 21:14] LABS: Influenza A QL RT-PCR Negative (Negative); Influenza B QL RT-PCR Negative (Negative); RSV RNA, RT-PCR Negative (Negative); SARS-CoV-2 RNA PCR Negative (Negative)
[2024-05-03] MEDS: DICLOFENAC SODIUM 1% 100 GM GEL (*BKC) 1 APPLIC TOPICAL (21:32)
[2024-05-03 22:31] LABS: Add Urine Microscopic? YES; Appearance Urine Turbid (Clear); Bacteria Urine None Seen /hpf; Bilirubin Urine 1+ (Negative); Blood Urine Negative (Negative); Color Urine Dark Yellow (Yellow); Glucose Urine UA Negative (Negative); Hyaline Casts Urine Present /lpf; Ketones Urine Trace mg/dL (Negative); Leukocyte Esterase Ur 2+ LEU/UL (Negative); Mucus Urine Present /lpf; Need Manual Microscopic Reviewed; Nitrate Urine Negative (Negative); Protein Urine 1+ mg/dL (Negative); Specific Grav Ur 1.023 (1.001-1.035); Squamous Epithelial Cell Urine Many /hpf (Few); WBC Urine >100 /hpf (0-3)
[2024-05-03] MEDS: MEROPENEM 1 GM/NS 100 ML 1 GM/100 ML BAG IVPB (23:04)
[2024-05-03] MEDS: DOXYCYCLINE 100 MG/NS 100 ML 100 MG/100 ML BAG IVPB (23:26)
[2024-05-03 23:43] VITALS: BP 140/76; PULSE 78; RESP 18; O2SAT 94
[2024-05-04] VITALS (13 sets, daily range): BP systolic 113–165; BP diastolic 63–90; PULSE 85–105; RESP 18–24; TEMP 36.4–38; O2SAT 83–96; BMI 28.8
--- NOTE | 2024-05-04 00:49 | PM.IMHP ---
H&P: HPI History of Present Illness Date/Time: 05/04/24 00:49 Chief Complaint: Increased weakness Narrative: 73 year old female Past medical history of hypertension, CAD, hyperlipidemia, CKD, mood disorder and recent stroke. was discharged from [facility] recently. Pt lives with her grand daughter, daughter lives near by, noticed her increasingly more weak, needing more assistance. pt uses WC and walks with rollator, but was needing wc more of the time, unable to walk much. Pt complains of cough also. Pt found to have abnl UA in the ED and bilateral pneumonia on cxr. Pt admitted for UTI and community acquired pneumonia, pt has several known allergies. IV merem and IV doxycycline started as cultures are pending. Review of Systems Review of Systems: Systems positive for cough increased weakness constipation due to immobility on going R sided weakness mild dysphagia with hard foods All other 12 systems are reviewed and are negative PMF Past Medical History Medical History Arthritis Atherosclerotic heart disease of [place] coronary artery with other forms of angina pectoris Cardiac catheterization 03/05/2018 showed ischemic heart disease with no significant occlusive disease identified. Remaining patency of the RCA. Previous infarction of the inferior wall. EF estimated to be 50%. Cerebral brain hemorrhage COVID-19 07/27/2020 Essential (primary) hypertension Gastro-esophageal reflux disease without esophagitis History of stroke Hypertensive heart and chronic kidney disease with heart failure and stage 1 through stage 4 chronic kidney disease, or unspecified chronic kidney disease Hypertensive retinopathy, unspecified eye Mixed hyperlipidemia Rotator cuff tear arthropathy of right shoulder Sleep apnea Systemic lupus erythematosus Surgical History Surgical History History of back surgery Prior fusion surgery to L spine. 10/26/20 had Nerve Stimulator placed for chronic back issues History of heart artery stent History of hysterectomy History of knee surgery Hx of dilation and curettage Status post decompression of ulnar nerve at elbow Family History Family History Mother Diabetes mellitus Patient's mother is Family history of cardiovascular disease Father Family history of cardiovascular disease Patient's father is Sibling Myocardial infarct Breast cancer Other Breast cancer Skin cancer Other Family history of kidney disease Hypertension Social History Social History Social History: Code status: Patient would like to be a do not intubate. She would like to have chest compressions and or medication to try and provide for. Power of infection control preventionist: Granddaughter Ana Paula Jose Smoking packs per day: 2.5 Smoking cigarettes per day: 50.0 Years smoked: 20 Smoking pack-years: 50.00 Smoking status: Former smoker Tobacco type: cigarettes Smoking end date: 08/28/85 Alcohol intake: current Alcohol use details: glass of wine 2-3 times a few times a month. Substance use: never Substance use type: does not use Do You Feel Safe in your Home?: Yes Lack of Transportation: No Lack of Food: Never True Current Housing: I Have Housing Concerned About Future Housing: No Difficulty Paying Gas/Electric Bills: No Difficulty Paying for Meds: No Currently Unemployed: No Education: High School Diploma/GED Difficulty w/ Childcare or Family Care: No Living arrangements: with family Additional living arrangements comments: With Granddaughter Occupation/Education: retired Gender identity (if verbalized by the patient): Female Sexual Orientation (if Verbalized by the Patient): Straight or Heterosexual Spiritual
--- NOTE | 2024-05-04 01:03 | PC.NURSE ---
This patient, Laura Butler, was admitted to [facility] S[facility] Room 332-01. Patient/family oriented to hospital policies and general routines including ID bracelet, bed and alarms, visiting hours, pain management, procedures, bathroom and other care routines, personal items, smoking policy, room service/diet, and visiting hours. Information on how to activate the Rapid Response Team has been discussed. Patient/Family are encouraged to report perceived risks to care and to ask questions if they do not understand what they are told or what they should do.
[2024-05-04] MEDS: MEROPENEM 1 GM/NS 100 ML 1 GM/100 ML BAG IVPB ×3 (05:33→21:54)
--- NOTE | 2024-05-04 08:10 | PCRCNOTE ---
Found patient on room air with an O2 sat of 83% during oxygen rounds. Placed on 2L and O2 sat came up to 89%. Titrated to 4L and she came up to 91%. RT checked back on pt about 20 min later and O2 sat was 93% on 3L. RT left the patient on 3L.
[2024-05-04] MEDS: PANTOPRAZOLE 40 MG TABLET PO (08:47)
[2024-05-04] MEDS: ROSUVASTATIN 10 MG TABLET 40 MG PO (08:47)
[2024-05-04] MEDS: oxyBUTYnin CHLORIDE 5 MG TABLET PO ×3 (08:48→16:50)
[2024-05-04] MEDS: FENOFIBRATE 160 MG TABLET PO (08:48)
[2024-05-04] MEDS: DULoxetine HCL 60 MG CAPSULE.DR PO ×2 (08:49→16:48)
[2024-05-04] MEDS: POTASSIUM CHLORIDE 20 MEQ ER TABLET PO ×2 (08:49→16:49)
[2024-05-04] MEDS: BENZONATATE 100 MG CAPSULE 200 MG PO ×3 (08:49→16:49)
[2024-05-04] MEDS: SENNOSIDES 8.6 MG TABLET PO (08:50)
[2024-05-04] MEDS: FUROSEMIDE 20 MG TABLET PO (08:50)
[2024-05-04] MEDS: CLOPIDOGREL BISULFATE 75 MG TABLET PO (08:50)
[2024-05-04] MEDS: LORATADINE 10 MG TABLET PO (08:51)
[2024-05-04] MEDS: carvediloL 25 MG TABLET PO ×2 (08:51→16:50)
[2024-05-04] MEDS: lisinopriL 20 MG TABLET 40 MG PO (08:51)
[2024-05-04] MEDS: GABAPENTIN 300 MG CAPSULE PO ×2 (08:51→16:49)
[2024-05-04] MEDS: MAGNESIUM OXIDE 400 MG TABLET PO (08:51)
--- NOTE | 2024-05-04 10:14 | PM.IMPN ---
Progress Note: A&P Assessment and Plan (1) HTN (hypertension), benign: Code(s): I10 - Essential (primary) hypertension Status: Acute Assessment and Plan: continue pts home blood pressure medications (2) Mixed hyperlipidemia: Code(s): E78.2 - Mixed hyperlipidemia Status: Acute Assessment and Plan: continue pts home statin (3) CHF (congestive heart failure): Code(s): I50.9 - Heart failure, unspecified Status: Acute Assessment and Plan: continue lasix and coreg (4) UTI (urinary tract infection): Code(s): N39.0 - Urinary tract infection, site not specified Status: Acute Assessment and Plan: continue IV merem await uc - urine cultures still pending this am-monitor (5) Pneumonia: Code(s): J18.9 - Pneumonia, unspecified organism Status: Acute Assessment and Plan: continue iv doxycycline await bc watch respiratory status oxygen prn cough drops, add mucinex -IS (6) CVA (cerebral vascular accident): Code(s): I63.9 - Cerebral infarction, unspecified Status: Acute Assessment and Plan: recent stroke leaving r sided weakness continue plavix order PT/ OT and ST continue plavix and statin Has a history of aspirin intolerance Plan Mood disorder continue antidepressants Dvt prop- plavix add scd pt has history of cerebral bleed Code status - full code status Time Spent With Patient Time with patient: Greater than 35 minutes Subjective Date/time seen: 05/04/24 10:14 Interval history: Chief Complaint: Increased weakness Narrative retrieved from H/P: 73 year old female Past medical history of hypertension, CAD, hyperlipidemia, CKD, mood disorder and recent stroke. was discharged from [facility] recently. Pt lives with her grand daughter, daughter lives near by, noticed her increasingly more weak, needing more assistance. pt uses WC and walks with rollator, but was needing wc more of the time, unable to walk much. Pt complains of cough also. Pt found to have abnl UA in the ED and bilateral pneumonia on cxr. Pt admitted for UTI and community acquired pneumonia, pt has several known allergies. IV merem and IV doxycycline started as cultures are pending 05/04- pt is seen and examined. reports feeling congested, non productive cough. appetite is ok, no n/v/d. Review of Systems Review of Systems: Systems positive for cough increased weakness constipation due to immobility on going R sided weakness mild dysphagia with hard foods All other 12 systems are reviewed and are negative Exam Narrative: General:? Alert, awake, cooperative HEENT: Atraumatic, normocephalic Cardiac: Regular rate rhythm, no murmurs auscultated Pulmonary:? Clear to auscultation bilaterally, no rhonchi no wheezing no rales , decreased BS Abdomen:? Soft, nontender, bowel sounds present Neurologic:? Alert, awake generalized weakness of both arms and legs Psych: nl mood Extremities:? No significant skin lesions or ulcers apparent on my exam Objective Data Vital Signs Vital Signs: Vital Signs - 24 hr 05/03/24 13:14 05/03/24 19:19 05/03/24 21:03 Temperature 97.2 F L Pulse Rate 83 83 83 Respiratory Rate 16 24 H Blood Pressure 119/56 L 160/98 H Pulse Oximetry 99 97 Oxygen Delivery Room Air Oxygen Flow Rate Fraction of Inspired Oxygen 05/03/24 23:43 05/04/24 00:45 05/04/24 05:04 Temperature 99.4 F Pulse Rate 78 88 Respiratory Rate 18 20 Blood Pressure 140/76 157/75 H Pulse Oximetry 94 95 Oxygen Delivery Room Air Oxygen Flow Rate Fraction of Inspired Oxygen 05/04/24 05:36 05/04/24 07:40 05/04/24 07:44 Temperature 100.4 F H Pulse Rate 105 H Respiratory Rate 20 Blood Pressure 165/90 H Pulse Oximetry 90 83 L 91 Oxygen Delivery Room Air Nasal Cannula Oxygen Flow Rate 3 Fraction of Inspired Oxygen 21 32 05/04/24 07:42 05/04/24 08:05 09
--- NOTE | 2024-05-04 11:34 | PCSTNOTE ---
Please refer to the Bedside Swallow Evaluation in the EMR. Please note, silent aspiration cannot be ruled out at bedside.
[2024-05-04] MEDS: DOXYCYCLINE 100 MG/NS 100 ML 100 MG/100 ML BAG IVPB ×2 (11:56→22:34)
[2024-05-04] MEDS: cloNIDine HCL 0.2 MG TABLET PO (21:53)
[2024-05-05] VITALS (8 sets, daily range): BP systolic 131–158; BP diastolic 59–92; PULSE 80–95; RESP 16–20; TEMP 36.2–37.5; O2SAT 90–99
[2024-05-05] MEDS: MEROPENEM 1 GM/NS 100 ML 1 GM/100 ML BAG IVPB ×3 (05:47→20:19)
[2024-05-05 08:38] LABS: Anion Gap 8 mmol/L (4-12); Blood Urea Nitrogen 10 mg/dL (7-17); Calcium 8.8 mg/dL (8.4-10.2); Carbon Dioxide 25 mmol/L (22-30); Chloride 104 mmol/L (98-107); Estimated CRCL calculation 105 ml/min; Estimated Glomerular Filt Rate > 60; Glucose 94 mg/dL (65-110); Potassium 3.9 mmol/L (3.4-5.0); Sodium 137 mmol/L (137-145)
[2024-05-05] MEDS: DULoxetine HCL 60 MG CAPSULE.DR PO ×2 (09:29→16:48)
[2024-05-05] MEDS: PANTOPRAZOLE 40 MG TABLET PO (09:29)
[2024-05-05] MEDS: FENOFIBRATE 160 MG TABLET PO (09:29)
[2024-05-05] MEDS: ROSUVASTATIN 10 MG TABLET 40 MG PO (09:29)
[2024-05-05] MEDS: GABAPENTIN 300 MG CAPSULE PO ×2 (09:29→16:52)
[2024-05-05] MEDS: carvediloL 25 MG TABLET PO ×2 (09:30→16:48)
[2024-05-05] MEDS: BENZONATATE 100 MG CAPSULE 200 MG PO ×3 (09:30→16:20)
[2024-05-05] MEDS: oxyBUTYnin CHLORIDE 5 MG TABLET PO ×3 (09:30→16:48)
[2024-05-05] MEDS: SENNOSIDES 8.6 MG TABLET PO ×2 (09:31→16:52)
[2024-05-05] MEDS: LORATADINE 10 MG TABLET PO (09:31)
[2024-05-05] MEDS: CLOPIDOGREL BISULFATE 75 MG TABLET PO (09:31)
[2024-05-05] MEDS: FUROSEMIDE 20 MG TABLET PO (09:32)
[2024-05-05] MEDS: POTASSIUM CHLORIDE 20 MEQ ER TABLET PO ×2 (09:32→16:52)
[2024-05-05] MEDS: lisinopriL 20 MG TABLET 40 MG PO (09:32)
[2024-05-05] MEDS: MAGNESIUM OXIDE 400 MG TABLET PO (09:32)
[2024-05-05] MEDS: DOXYCYCLINE 100 MG/NS 100 ML 100 MG/100 ML BAG IVPB ×2 (09:39→20:18)
[2024-05-05 09:55] LABS: Basophils Absolute Auto 0.1 K/mm3 (0.0-0.1); Basophils Percent Auto 0.8 % (0.2-1.2); Eosinophils Absolute Auto 0.2 K/mm3 (0-0.3); Eosinophils Percent Auto 3.8 % (0-4.4); Hematocrit 36.2 % (37.0-47.0); Hemoglobin 11.9 g/dL (12.0-15.0); Immature Granulocyte Absolute 0.09 K/mm3 (0.00-0.031); Immature Granulocyte Percent A 1.4 % (0-0.5); Lymphocytes Absolute Auto 1.86 K/mm3 (0.9-3.2); Lymphocytes Percent Auto 29.5 % (18.3-44.2); Mean Corpuscular HGB Conc 32.9 g/dl (32-36); Mean Corpuscular Hemoglobin 29.7 pg (26-34); Mean Corpuscular Volume 90.3 fl (80-100); Mean Platelet Volume 9.2 fl (7.4-10.4); Monocytes Absolute Auto 0.5 K/mm3 (0.1-0.6); Monocytes Percent Auto 8.6 % (2.6-8.5); Neutrophils Absolute Auto 3.5 K/mm3 (1.3-6.7); Neutrophils Percent Auto 55.9 % (45.5-73.1); Platelet Count Result 302 k/mm3 (150-375); Red Blood Count 4.01 M/mm3 (4.2-5.4); Red Cell Distribution Width 12.7 % (11.5-14.5); White Blood Count 6.3 K/mm3 (4.5-10.0)
[2024-05-05] MEDS: ONDANSETRON INJ 4 MG/2 ML VIAL IV PUSH (10:19)
--- NOTE | 2024-05-05 13:10 | PM.IMPN ---
Progress Note: A&P Assessment and Plan (1) HTN (hypertension), benign: Code(s): I10 - Essential (primary) hypertension Status: Acute Assessment and Plan: continue pts home blood pressure medications (2) Mixed hyperlipidemia: Code(s): E78.2 - Mixed hyperlipidemia Status: Acute Assessment and Plan: continue pts home statin (3) CHF (congestive heart failure): Code(s): I50.9 - Heart failure, unspecified Status: Acute Assessment and Plan: continue lasix and coreg (4) UTI (urinary tract infection): Code(s): N39.0 - Urinary tract infection, site not specified Status: Acute Assessment and Plan: continue IV merem await uc - urine cultures still pending this am-monitor (5) Pneumonia: Code(s): J18.9 - Pneumonia, unspecified organism Status: Acute Assessment and Plan: continue iv doxycycline await bc watch respiratory status oxygen prn cough drops, add mucinex -IS (6) CVA (cerebral vascular accident): Code(s): I63.9 - Cerebral infarction, unspecified Status: Acute Assessment and Plan: recent stroke leaving r sided weakness continue plavix order PT/ OT and ST continue plavix and statin Has a history of aspirin intolerance (7) Bacteremia: Code(s): R78.81 - Bacteremia Status: Acute Assessment and Plan: - BC 05/03 growing gram positive cocci clusters - possibly contaminated - pt is clinically improving- WBC wnl, afebrile, BP stable - currently on doxy and meropenem - will repeat BC today - could de escalate therapy- will discuss with pharm ID - if BC repeat negative and clinically stable- may be discharged on oral antibiotics on [place] Plan Mood disorder continue antidepressants Dvt prop- plavix add scd pt has history of cerebral bleed Code status - full code status Time Spent With Patient Time with patient: Greater than 35 minutes Subjective Date/time seen: 05/05/24 13:10 Interval history: Chief Complaint: Increased weakness Narrative retrieved from H/P: 73 year old female Past medical history of hypertension, CAD, hyperlipidemia, CKD, mood disorder and recent stroke. [facility] Pt lives with her grand daughter, daughter lives near by, noticed her increasingly more weak, needing more assistance. pt uses WC and walks with rollator, but was needing wc more of the time, unable to walk much. Pt complains of cough also. Pt found to have abnl UA in the ED and bilateral pneumonia on cxr. Pt admitted for UTI and community acquired pneumonia, pt has several known allergies. IV merem and IV doxycycline started as cultures are pending 05/04- pt is seen and examined. reports feeling congested, non productive cough. appetite is ok, no n/v/d. Review of Systems Review of Systems: Systems positive for cough increased weakness constipation due to immobility on going R sided weakness mild dysphagia with hard foods All other 12 systems are reviewed and are negative Exam Narrative: General:? Alert, awake, cooperative HEENT: Atraumatic, normocephalic Cardiac: Regular rate rhythm, no murmurs auscultated Pulmonary:? Clear to auscultation bilaterally, no rhonchi no wheezing no rales , decreased BS Abdomen:? Soft, nontender, bowel sounds present Neurologic:? Alert, awake generalized weakness of both arms and legs Psych: nl mood Extremities:? No significant skin lesions or ulcers apparent on my exam Objective Data Vital Signs Vital Signs: Vital Signs - 24 hr 05/04/24 15:35 05/04/24 16:50 05/04/24 14:00 Temperature 97.5 F L Pulse Rate 87 86 Respiratory Rate 24 H Blood Pressure 151/75 H Pulse Oximetry 96 Oxygen Delivery Nasal Cannula Oxygen Flow Rate 3 05/04/24 20:49 05/04/24 21:54 05/05/24 06:10 Temperature 98.6 F 99.5 F Pulse Rate 85 95 Respiratory Rate 18 16 Blood Pressure 113/63 158/90 H
--- NOTE | 2024-05-05 13:17 | PM.IMPN ---
Progress Note: A&P Assessment and Plan (1) HTN (hypertension), benign: Code(s): I10 - Essential (primary) hypertension Status: Acute Assessment and Plan: continue pts home blood pressure medications (2) Mixed hyperlipidemia: Code(s): E78.2 - Mixed hyperlipidemia Status: Acute Assessment and Plan: continue pts home statin (3) CHF (congestive heart failure): Code(s): I50.9 - Heart failure, unspecified Status: Acute Assessment and Plan: continue lasix and coreg (4) UTI (urinary tract infection): Code(s): N39.0 - Urinary tract infection, site not specified Status: Acute Assessment and Plan: continue IV merem await uc - urine cultures still pending this am-monitor (5) Pneumonia: Code(s): J18.9 - Pneumonia, unspecified organism Status: Acute Assessment and Plan: continue iv doxycycline await bc watch respiratory status oxygen prn cough drops, add mucinex -IS (6) CVA (cerebral vascular accident): Code(s): I63.9 - Cerebral infarction, unspecified Status: Acute Assessment and Plan: recent stroke leaving r sided weakness continue plavix order PT/ OT and ST continue plavix and statin Has a history of aspirin intolerance (7) Bacteremia: Code(s): R78.81 - Bacteremia Status: Acute Assessment and Plan: - BC 05/03 growing gram positive cocci clusters - possibly contaminated - pt is clinically improving- WBC wnl, afebrile, BP stable - currently on doxy and meropenem - will repeat BC today - could de escalate therapy- will discuss with pharm ID - if BC repeat negative and clinically stable- may be discharged on oral antibiotics on [place] Plan Mood disorder continue antidepressants Dvt prop- plavix add scd pt has history of cerebral bleed Code status - full code status Time Spent With Patient Time with patient: Greater than 35 minutes Subjective Date/time seen: 05/05/24 13:17 Interval history: Chief Complaint: Increased weakness Narrative retrieved from H/P: 73 year old female Past medical history of hypertension, CAD, hyperlipidemia, CKD, mood disorder and recent stroke. [facility] Pt lives with her grand daughter, daughter lives near by, noticed her increasingly more weak, needing more assistance. pt uses WC and walks with rollator, but was needing wc more of the time, unable to walk much. Pt complains of cough also. Pt found to have abnl UA in the ED and bilateral pneumonia on cxr. Pt admitted for UTI and community acquired pneumonia, pt has several known allergies. IV merem and IV doxycycline started as cultures are pending 05/04- pt is seen and examined. reports feeling congested, non productive cough. appetite is ok, no n/v/d. 05/05- doing well this am. NO chills. Repoerts some nausea but relieved with zofran. Review of Systems Review of Systems: Systems positive for cough but improving All other 12 systems are reviewed and are negative Exam Narrative: General:? Alert, awake, cooperative HEENT: Atraumatic, normocephalic Cardiac: Regular rate rhythm, no murmurs auscultated Pulmonary:? Clear to auscultation bilaterally, no rhonchi no wheezing no rales , decreased BS Abdomen:? Soft, nontender, bowel sounds present Neurologic:? Alert, awake generalized weakness of both arms and legs Psych: nl mood Extremities:? No significant skin lesions or ulcers apparent on my exam Objective Data Vital Signs Vital Signs: Vital Signs - 24 hr 05/04/24 15:35 05/04/24 16:50 05/04/24 14:00 Temperature 97.5 F L Pulse Rate 87 86 Respiratory Rate 24 H Blood Pressure 151/75 H Pulse Oximetry 96 Oxygen Delivery Nasal Cannula Oxygen Flow Rate 3 05/04/24 20:49 05/04/24 21:54 05/05/24 06:10 Temperature 98.6 F 99.5 F Pulse Rate 85 95 Respiratory Rate 18 16 Blood Pressure 113/63 158/90 H Pulse Oxi
[2024-05-05] MEDS: cloNIDine HCL 0.2 MG TABLET PO (20:17)
[2024-05-06] VITALS (10 sets, daily range): BP systolic 123–179; BP diastolic 45–81; PULSE 85–103; RESP 16–20; TEMP 36–36.9; O2SAT 86–94
[2024-05-06] MEDS: MEROPENEM 1 GM/NS 100 ML 1 GM/100 ML BAG IVPB (06:01)
[2024-05-06] MEDS: DOXYCYCLINE 100 MG/NS 100 ML 100 MG/100 ML BAG IVPB (08:24)
[2024-05-06] MEDS: FUROSEMIDE 20 MG TABLET PO (08:27)
[2024-05-06] MEDS: GABAPENTIN 300 MG CAPSULE PO (08:27)
[2024-05-06] MEDS: lisinopriL 20 MG TABLET 40 MG PO (08:28)
[2024-05-06] MEDS: SENNOSIDES 8.6 MG TABLET PO (08:28)
[2024-05-06] MEDS: carvediloL 25 MG TABLET PO (08:28)
[2024-05-06] MEDS: oxyBUTYnin CHLORIDE 5 MG TABLET PO ×2 (08:28→13:30)
[2024-05-06] MEDS: LORATADINE 10 MG TABLET PO (08:29)
[2024-05-06] MEDS: PANTOPRAZOLE 40 MG TABLET PO (08:29)
[2024-05-06] MEDS: ROSUVASTATIN 10 MG TABLET 40 MG PO (08:29)
[2024-05-06] MEDS: MAGNESIUM OXIDE 400 MG TABLET PO (08:29)
[2024-05-06] MEDS: POTASSIUM CHLORIDE 20 MEQ ER TABLET PO (08:29)
[2024-05-06] MEDS: CLOPIDOGREL BISULFATE 75 MG TABLET PO (08:29)
[2024-05-06] MEDS: BENZONATATE 100 MG CAPSULE 200 MG PO ×2 (08:29→13:30)
[2024-05-06] MEDS: FENOFIBRATE 160 MG TABLET PO (08:30)
[2024-05-06] MEDS: polyethylene glycoL 3350 17 GM POWD.PACK PO (08:30)
[2024-05-06] MEDS: DULoxetine HCL 60 MG CAPSULE.DR PO (08:30)
--- NOTE | 2024-05-06 12:25 | PM.IMPN ---
Progress Note: A&P Assessment and Plan (1) HTN (hypertension), benign: Code(s): I10 - Essential (primary) hypertension Status: Acute Assessment and Plan: continue pts home blood pressure medications (2) Mixed hyperlipidemia: Code(s): E78.2 - Mixed hyperlipidemia Status: Acute Assessment and Plan: continue pts home statin (3) CHF (congestive heart failure): Code(s): I50.9 - Heart failure, unspecified Status: Acute Assessment and Plan: continue lasix and coreg (4) UTI (urinary tract infection): Code(s): N39.0 - Urinary tract infection, site not specified Status: Acute Assessment and Plan: continue IV merem await uc - urine cultures still pending this am-monitor (5) Pneumonia: Code(s): J18.9 - Pneumonia, unspecified organism Status: Acute Assessment and Plan: continue iv doxycycline await bc watch respiratory status oxygen prn cough drops, add mucinex -IS (6) CVA (cerebral vascular accident): Code(s): I63.9 - Cerebral infarction, unspecified Status: Acute Assessment and Plan: recent stroke leaving r sided weakness continue plavix order PT/ OT and ST continue plavix and statin Has a history of aspirin intolerance (7) Bacteremia: Code(s): R78.81 - Bacteremia Status: Acute Assessment and Plan: - BC 05/03 growing gram positive cocci clusters - possibly contaminated - pt is clinically improving- WBC wnl, afebrile, BP stable - currently on doxy and meropenem - will repeat BC today - could de escalate therapy- will discuss with pharm ID - if BC repeat negative and clinically stable- may be discharged on oral antibiotics on [place] Plan Mood disorder continue antidepressants Dvt prop- plavix add scd pt has history of cerebral bleed Code status - full code status Subjective Date/time seen: 05/06/24 12:25 Review of Systems Review of Systems: Systems positive for cough but improving All other 12 systems are reviewed and are negative Objective Data Vital Signs Vital Signs: Vital Signs - 24 hr 05/05/24 14:00 05/05/24 16:48 05/05/24 21:38 Temperature 97.2 F L 98.1 F Pulse Rate 82 80 88 Respiratory Rate 20 18 Blood Pressure 131/61 140/59 L Pulse Oximetry 94 90 Oxygen Delivery Oxygen Flow Rate Fraction of Inspired Oxygen 05/05/24 20:00 05/06/24 06:00 05/06/24 07:54 Temperature 98.4 F Pulse Rate 90 Respiratory Rate 20 Blood Pressure 179/81 H Pulse Oximetry 99 94 92 Oxygen Delivery Nasal Cannula Nasal Cannula Oxygen Flow Rate 1 1 Fraction of Inspired Oxygen 05/06/24 08:28 05/06/24 08:30 Temperature Pulse Rate 96 Respiratory Rate Blood Pressure Pulse Oximetry 94 Oxygen Delivery Room Air Oxygen Flow Rate Fraction of Inspired Oxygen Intake/Output Intake/Output: Intake & Output 05/03/24 05/04/24 05/05/24 05/06/24 23:59 23:59 23:59 23:59 Intake Total 1100 1580 1460 100 Output Total 1 Balance 1100 1579 1460 100 Meds/Results Medications: Active Medications Generic Name Dose Route Start Last Admin Trade Name Freq PRN Reason Stop Dose Admin Acetaminophen 650 mg 05/04/24 02:14 Acetaminophen 325 Mg Tablet PO Q8H PRN Pain Benzonatate 200 mg 05/04/24 09:00 05/06/24 08:29 Benzonatate 100 Mg Capsule PO 200 mg TID ULICES Administration Carvedilol 25 mg 05/04/24 08:00 05/06/24 08:28 Carvedilol 25 Mg Tablet PO 25 mg BIDWM ULICES Administration Clonidine HCl 0.2 mg 05/04/24 21:00 05/05/24 20:17 Clonidine Hcl 0.2 Mg Tablet PO 0.2 mg HS ULICES Administration Clopidogrel Bisulfate 75 mg 05/04/24 09:00 05/06/24 08:29 Clopidogrel Bisulfate 75 Mg Tablet PO 75 mg DAILY ULICES Administration Duloxetine HCl 60 mg 05/04/24 09:00 05/06/24 08:30 Duloxetine Hcl 60 Mg Capsule.Dr PO 60 mg BID ULICES Administration Fenofibrate 160 mg 05/04/24 0
--- NOTE | 2024-05-06 12:33 | PM.DS ---
DS: Admitting Diagnosis Discharge Date 05/06/2024 12:30 Admitting Diagnosis PNA DS: Discharge Diagnosis Discharge Diagnosis (1) HTN (hypertension), benign: Code(s): I10 - Essential (primary) hypertension Status: Acute Assessment and Plan: continue pts home blood pressure medications (2) Mixed hyperlipidemia: Code(s): E78.2 - Mixed hyperlipidemia Status: Acute Assessment and Plan: continue pts home statin (3) CHF (congestive heart failure): Code(s): I50.9 - Heart failure, unspecified Status: Acute Assessment and Plan: continue lasix and coreg (4) UTI (urinary tract infection): Code(s): N39.0 - Urinary tract infection, site not specified Status: Acute Assessment and Plan: continue IV merem await uc - urine cultures still pending this am-monitor (5) Pneumonia: Code(s): J18.9 - Pneumonia, unspecified organism Status: Acute Assessment and Plan: continue iv doxycycline await bc watch respiratory status oxygen prn cough drops, add mucinex -IS (6) CVA (cerebral vascular accident): Code(s): I63.9 - Cerebral infarction, unspecified Status: Acute Assessment and Plan: recent stroke leaving r sided weakness continue plavix order PT/ OT and ST continue plavix and statin Has a history of aspirin intolerance (7) Bacteremia: Code(s): R78.81 - Bacteremia Status: Acute Assessment and Plan: - BC 05/03 growing gram positive cocci clusters - possibly contaminated - pt is clinically improving- WBC wnl, afebrile, BP stable - currently on doxy and meropenem - will repeat BC today - could de escalate therapy- will discuss with pharm ID - if BC repeat negative and clinically stable- may be discharged on oral antibiotics on [place] Plan Mood disorder continue antidepressants Dvt prop- plavix add scd pt has history of cerebral bleed Code status - full code status DS: Summary Hospital Course Hospital Course: Patient is a 73-year-old female with past medical history of hypertension, CAD, hyperlipidemia, CAD, CKD who recently discharged from inpatient however was noted to be more weak which prompted her to come back to ED. in the ED UA was found to be a little abnormal and pneumonia was noted the chest x-ray. Patient was started on IV antibiotics including meropenem and doxycycline. Blood cultures did come back positive however are noted to be a contaminant with Staph epidermidis and home yes. Antibiotics have been changed currently patient is on p.o. Levaquin and was initiated on vancomycin however vancomycin has been discontinued due to the results of the blood cultures. Currently patient is doing well she feels well and denies any chest pain, shortness a breath, nausea, vomiting, diarrhea constipation. At this time patient is stable for discharge for labs and vital signs. Patient will complete her course of 5 days with p.o. Levaquin. Home oxygen evaluation was done and showed that she needed 2LNC at rest and with activity. Status at Discharge Functional status at discharge: uses cane/walker Overall status at discharge: patient is progressing back to baseline Time Spent with Patient Time attestation: Total time spent providing and/or coordinating discharge services: 49 minutes Time spent: Greater than 30 minutes Specific discharge activities: Diagnostic testing, chart review, developing a treatment plan, education, care coordination documentation, physical exam, result review Exam Narrative: General: well-nourished, well-appearing 77-year-old female, sitting up in bed, comfortable, NARD Neuro: awake, alert and oriented x4, speech clear, no focal neuro deficits noted HEENMT: normocephalic, atraumatic, EOMI, sclerae anicteric, moist oral mucosa Respiratory: Clear to auscultation bilaterally without crackles, rhonchi or wheezes, nonlabored breathing Cardio: regular rate, regular rhythm with S1-
--- NOTE | 2024-05-06 13:37 | HOMEO2EVAL ---
Evaluation was performed at [facility] Home Oxygen Evaluation RC: Home Oxygen (O2) Evaluation Start: 05/06/24 12:41 Freq: ONCE Status: Active Protocol: RPE Activity Type Activity Date Activity User E-sign Co-sign Detail Recorded Client Recorded Date Recorded By Document 05/06/24 13:18 KRM [email or web address] 05/06/24 13:37 KRM Document 05/06/24 13:19 KRM [email or web address] 05/06/24 13:37 KRM Document 05/06/24 13:20 KRM [email or web address] 05/06/24 13:37 KRM Document 05/06/24 13:22 [email or web address] [email or web address] 05/06/24 13:37 KRM 05/06/24 05/06/24 05/06/24 13:18 13:19 13:20 Home O2 Evaluation [Oxygen] -Test Phase Resting Resting Resting -Oxygen Delivery Room Air Nasal Cannula Nasal Cannula -Oxygen Flow Rate (L/min) 1 2 [Pulse Oximetry] -Pulse Oximetry (90-100 %) 87 L 86 L 90 [Pulse Rate] -Pulse Rate (60-100 beats/min) 93 92 85 [Evaluation] -Activity Tolerance [Exercise] -Ambulation Distance (feet) -Ambulation Distance (meters) [Comments] -Home Oxygen Evaluation Comments [Charges] -Evaluation Charges 05/06/24 13:22 Home O2 Evaluation [Oxygen] -Test Phase Exercise -Oxygen Delivery Nasal Cannula -Oxygen Flow Rate (L/min) 2 [Pulse Oximetry] -Pulse Oximetry (90-100 %) 93 [Pulse Rate] -Pulse Rate (60-100 beats/min) 103 H [Evaluation] -Activity Tolerance Fair [Exercise] -Ambulation Distance (feet) 100 -Ambulation Distance (meters) 30.47 [Comments] -Home Oxygen Evaluation Comments Pt. requires 2lpm at rest and with activity. [Charges] -Evaluation Charges O2 Evaluation by PIPPA
== END 2024-05-06 17:05 | disposition home health service (06) ==
LOC: ANHED 19:17 → ANH3MEDSUR 05-04 01:40
PROVIDERS: Nurse Practitioner; Physician Assistant; Student in an Organized Health Care Education/Training Program; Admitting Provider Family Medicine; Emergency Provider Emergency Medicine; PCP Family Medicine; Visit Provider Internal Medicine
DX: J18.9 Pneumonia, unspecified organism (principal); N39.0 Urinary tract infection, site not specified; R53.1 Weakness; I69.351 Hemiplegia and hemiparesis following cerebral infarction affecting right dominant side; I13.0 Hypertensive heart and chronic kidney disease with heart failure and stage 1 through stage 4 chronic kidney disease, or unspecified chronic kidney disease; I50.9 Heart failure, unspecified; N18.9 Chronic kidney disease, unspecified; I25.10 Atherosclerotic heart disease of native coronary artery without angina pectoris; H35.039 Hypertensive retinopathy, unspecified eye; M32.9 Systemic lupus erythematosus, unspecified; G47.30 Sleep apnea, unspecified; E78.2 Mixed hyperlipidemia; K21.9 Gastro-esophageal reflux disease without esophagitis; F39 Unspecified mood [affective] disorder; Z20.822 Contact with and (suspected) exposure to COVID-19; Z98.1 Arthrodesis status; Z95.5 Presence of coronary angioplasty implant and graft; Z79.02 Long term (current) use of antithrombotics/antiplatelets; Z87.891 Personal history of nicotine dependence
CPT/HCPCS: 36415; 70450; 71046; 72170; 80048; 80053; 81001; 85025; 87040; 87077; 87086; 87181; 87637; 92610; 93005; 94618; 96361; 96365; 96366; 96368; 96375; 97110; 97116; 97161; 97165; 97530; 97535; 99285; A9270; G0378; J2185; J2405; J7030

== ENCOUNTER 2024-10-12 16:17 | Emergency (ER) | payer MEDICARE, SELFPAY ==
--- OUTSIDE RECORDS SUMMARY | 2024-10-12 16:19 | XMS_ITS | Patient Health Record ---
Author Organization [facility] Address [address] [place] [address] Care Team Providers Care Postpartum Nurse Name Role Phone Workman Ricardo WILKERSON Unavailable Unavailable Reason For Referral No Information Plan Of Treatment No Information Insurance Providers Payer Name Payer Address Payer Phone Subscriber Number Group Number Insured Name Patient Relationship to Insured Coverage Start Date Coverage End Date [facility] [address] [address] [place] [address] [phone] [id number] Laura Butler Self - patient is the insured 9
--- OUTSIDE RECORDS SUMMARY | 2024-10-12 16:19 | XMS_ITS | Referral Summary ---
Author Organization [facility] [address] [place] [address] [address] [place] [address] Care Team Providers Care Splicing Technician Name Role Phone Faraz Guevara MD Primary Care Provider [phone] Encounters Date Type Department Care Team Description 08/15/2024 Telephone [facility] Medical Group Cardiology [address] [place] [address] Patricia Obrien NP 08/09/2024 10:30 AM POSTAL CARRIER Office Visit [facility] Medical [facility] Cardiology [address] [place] [address] [address] [place] [address] Patricia Obrien NP Recent cerebrovascular accident (CVA) (Primary Dx); History of hemorrhagic stroke with residual hemiparesis (CMS/HCC) (HCC); Hospital discharge follow-up from Last 3 Months Allergies Active Allergy Reactions Criticality Noted Date Comments Aspirin Cephalexin Codeine Influenza Virus Vaccines Irbesartan Penicillins Medications loratadine (CLARITIN) 10 mg tablet take 1 tablet (10MG) by oral route every day 0 06/07/[address] (PROTONIX) 40 mg EC tablet take 1 tablet (40MG) by oral route every day 0 06/07/2012 Active calcium carbonate-vitam in D3 (CALCIUM 600 WITH VITAMIN D3) 600 mg(1,500mg) -500 unit capsule 0 06/07/[address] (CYMBALTA) 60 mg capsule take 1 capsule (60MG) by oral route every day 0 06/07/2012 Active gabapentin (NEURONTIN) 100 mg capsule Take 1 capsule (100 mg total) by mouth 3 (three) times a day 3 12/06/2017 Active oxybutynin (DITROPAN) 5 mg tablet Take 1 tablet (5 mg total) by mouth 3 (three) times a day 0 01/30/2018 Active fenofibrate (TRIGLIDE) 160 mg tablet Take 1 tablet (160 mg total) by mouth daily 0 01/18/2018 Active carvedilol (COREG) 25 mg tablet Take 1 tablet (25 mg total) by mouth 2 (two) times a day with meals Active acidophilus-pec tin, citrus 100 million cell-10 mg capsule Take by mouth Active multivitamin capsule Take 1 capsule by mouth daily Active acetaminophen ER (TYLENOL) 650 mg 8 hr tablet Take 1 tablet (650 mg total) by mouth every 8 (eight) hours as needed for pain Active magnesium oxide 500 mg capsule Take by mouth Active cyanocobalamin, vitamin B-12, 5,000 mcg tablet, sublingual Place under the tongue Active furosemide (LASIX) 20 mg tablet Take 1 tablet (20 mg total) by mouth daily Active rosuvastatin (CRESTOR) 40 mg tablet Take 1 tablet (40 mg total) by mouth daily 04/16/2024 Active potassium chloride ER (KLOR-CON) 20 mEq CR tablet Take 1 tablet (20 mEq total) by mouth 2 (two) times a day 04/16/2024 Active lisinopriL (PRINIVIL,ZESTR IL) 40 mg tablet Take 1 tablet (40 mg total) by mouth daily 04/16/2024 Active cloNIDine (CATAPRES) 0.2 mg tablet Take 1 tablet (0.2 mg total) by mouth 2 (two) times a day 04/16/2024 Active clopidogreL (PLAVIX) 75 mg tablet Take 1 tablet (75 mg total) by mouth daily 04/16/2024 Active sertraline (ZOLOFT) 25 mg tablet Take 1 tablet (25 mg total) by mouth daily 04/16/2024 Active Active Problems Problem Noted Date Diagnosed Date Acute ischemic stroke 04/09/2024 Coronary artery disease invo lving cachil dehe coronary artery of [place] de[place] heart without angina pectoris 12/19/2017 Presence of stent in coronary artery 12/19/2017 GLENDA (obstructive sleep apnea) 12/19/2017 Social History Tobacco Use Types Packs/Day Years Used Date Smoking Tobacco: Former Smokeless Tobacco: Never Tobacco Cessation:Counseling Given: Not Answered Alcohol Use Standard Drinks/Week Comments Yes 0 (1 standard drink = 0.6 oz pur e alcohol) PHQ-2 Answer Date Recorded PHQ-2 Total Score (If total score is 3 or more points, staff should administer the PHQ-9) 0 04/10/2024 Personal Safety Answer Date Recorded Have you ever been in or are you currently in a harmful physical or emotional relationship or is someone making you feel afraid or unsafe? Denies 04/10/2024 Comments Unknown Sex and Gender Information Value Date Recorded Sex Assigned at Not on file Legal Sex Female 2:14 AM POSTAL CARRIER Gender Identity Not on file Sexual Orientation Not on file Last Filed Vital Signs Vital Sign Reading Time Taken Comments Blood Pressure 132/70 08/09/2024 10:42 AM POSTAL CARRIER Pulse 62 08/09/2024 10:42 AM POSTAL CARRIER Temperature 37.2 C (98.9 F) 04/16/2024 11:00 AM CDT Respiratory Rate 11 04/16/2024 1:00 PM CDT Oxygen Saturation 95% 08/09/2024 10:42 AM POSTAL CARRIER Inhaled Oxygen Concentration - - Weight 92.1 kg (203 lb) 08/09/2024 10:42 AM POSTAL CARRIER Height 165.1 cm (5' 5 ) 08/09/2024 10:42 AM POSTAL CARRIER Body Mass Index 33.78 08/09/2024 10:42 AM POSTAL CARRIER Plan of Treatment Not on file Medical Devices Implanted Type Area Meal Cooker Device Identifier Shelf Expiration Date Model / Serial / Lot [employer] Lead Lead Spine Lumbar [employer] Neuro- [id number] / / [employer] Spinal Cord Stimulator (Spectra Wavewriter Sc-1160)-10/26/2020 Implanted:10/27/19 21 by Unknown, Notinfile (Quantity not on file) Spinal Cord Stimulator Back [employer] [id number] / [id number] / Description:This neurostimul ator is eligible for MRI exams of the Head/Brain only per patient care coordinator 04/08/[address] [place] [address] MEDICARE SOLUTIONS MEDICARE SOLUTIONS MEDICARE SOLUTIONS Advance Directives For more information, please contact: [phone] * Full Code (Latest Code Status on File) Date Activated Date Inactivated Comments 04/09/2024 8:39 PM 04/16/2024 6:38 PM Care Teams Splicing Technician Relationship Specialty Start Date End Date Faraz Guevara MD PCP - General 06/07/12
--- OUTSIDE RECORDS SUMMARY | 2024-10-12 16:19 | XMS_ITS | Clinical Summary ---
Author Organization [facility] [address] Address [address] [place] [address] Care Team Providers Care Parts Chaser Name Role Phone Faraz Guevara MD Primary Care Provider [phone] Allergies Active Allergy Reactions Criticality Noted Date [...] (40 mg total) by mouth daily 04/16/2024 5 Active potassium chloride ER (KLOR-CON) 20 mEq CR tablet Take 1 tablet (20 mEq total) by mouth 2 (two) times a day 04/16/2024 5 Active lisinopriL (PRINIVIL,ZESTR IL) 40 mg tablet Take 1 tablet (40 mg total) by mouth daily 04/16/2024 Active cloNIDine (CATAPRES) 0.2 mg tablet Take 1 tablet (0.2 mg total) by mouth 2 (two) times a day 04/16/2024 Active clopidogreL (PLAVIX) 75 mg tablet Take 1 tablet (75 mg total) by mouth daily 04/16/2024 5 Active sertraline (ZOLOFT) 25 mg tablet Take 1 tablet (25 mg total) by mouth daily 04/16/2024 5 Active Active Problems Problem Noted Date Diagnosed Date Acute ischemic stroke 04/09/2024 Coronary artery disease invo lving ho-chunk coronary artery of ho-chunk heart without angina pectoris 12/19/2017 Presence of stent in coronary artery 12/19/2017 GLENDA (obstructive sleep apnea) 12/19/2017 Encounters Date Type Department Care Team Description 08/15/2024 Telephone [facility] Medical Group Cardiology [address] [place] [address] Patricia Obrien NP 08/09/2024 10:30 AM GATE CUTTER Office Visit [facility] Cardiology [address] [place] [address] Patricia Obrien NP Recent cerebrovascular accident (CVA) (Primary Dx); History of hemorrhagic stroke with residual hemiparesis (CMS/HCC) (HCC); Hospital discharge follow-up from Last 3 Months Medical History Medical History Date Comments Hx Other Medical DJD Hypertension Hypertension Social History Tobacco Use Types Packs/Day Years [...] on file Legal Sex Female 2:14 AM GATE CUTTER Gender Identity Not on file Sexual Orientation Not on file Obstetrics History Last Filed Vital Signs Vital Sign Reading Time Taken Comments Blood Pressure 132/70 08/09/2024 10:42 AM GATE CUTTER Pulse 62 08/09/2024 10:42 AM GATE CUTTER Temperature 37.2 C (98.9 F) 04/16/2024 11:00 AM CDT Respiratory Rate 11 04/16/2024 1:00 PM CDT Oxygen Saturation 95% 08/09/2024 10:42 AM GATE CUTTER Inhaled Oxygen Concentration - - Weight 92.1 kg (203 lb) 08/09/2024 10:42 AM GATE CUTTER Height 165.1 cm (5' 5 ) 08/09/2024 10:42 AM GATE CUTTER Body Mass Index 33.78 08/09/2024 10:42 AM GATE CUTTER Plan of Treatment Health Maintenance Due Date Last Done Comments Breast Cancer Screening-Mammogram 1950 Colon Cancer Screening-Colonoscopy 1950 Hepatitis C Screening 1950 Osteoporosis Screening-Bone Density Scan 1950 DTaP/Tdap/Td Vaccine (1 - Tdap) 1961 Hepatitis B Screening 1968 Zoster Vaccine (1 of 2) 2000 Pneumococcal vaccine 65+ (1 of 1 - PCV) 11/24/2015 Well Visit 65+ 11/24/2015 Covid-19 Vaccine ( season) 2024 07/31/2021, 12/29/2020, 12/08/2020 Influenza Vaccine (#1) 2024 0, 05/17/2019, 06/07/2018 Depression Screening 04/09/2025 04/09/2024, 12/12/19 20 Fall Risk Assessment 04/16/2025 04/16/2024, 12/12/2019, 02/20/2018 Medical Devices Implanted Type Area Artificial Leather Calender Operator Device Identifier Shelf Expiration Date Model / Serial / Lot [employer] Lead Lead Spine Lumbar [employer] Neuro- [id number] / / [employer] Spinal Cord Stimulator (Spectra Wavewriter Sc-1160)-10/26/2020 Implanted:10/27/19 21 by Unknown, Notinfile (Quantity not on file) Spinal Cord Stimulator Back [employer] [id number] / [id number] / Description:This neurostimul ator is eligible for MRI exams of the Head/Brain only per fund development manager JL 04/08/24 Insurance MEDICARE SOLUTIONS [place] [address] MEDICARE SOLUTIONS Advance Directives For more information, please contact: [phone] * Full Code (Latest Code Status on File) Date Activated Date Inactivated Comments 04/09/2024 8:39 PM 04/16/2024 6:38 PM Care Teams Parts Chaser Relationship Specialty Start Date End Date Faraz Guevara MD PCP - General 06/07/12
--- OUTSIDE RECORDS SUMMARY | 2024-10-12 16:19 | XMS_ITS | Clinical Summary ---
Author Organization [facility] Address [address] [place] [address] Care Team Providers Care Equipment Tech Name Role Phone Faraz Guevara MD Primary Care Provider [phone] Source Comments [facility],non-owned Affiliates and Associated Physician Practices is amultiple site organization consisting of ambulatory clinics and hospital sitesin [place], [place], [place] and [place]. This disclosure is being madepursuant to the Care Everywhere program and may not contain all information available regarding this patient. Last updated 18.[facility] [employer] Allergies Active Allergy Reactions Criticality Noted Date Comments Aspirin 08/09/2010 Codeine 08/09/2010 Fluticasone Propionate 08/09/2010 Fluticasone Urticaria Medium 01/06/2022 Nitroglycerin 08/09/2010 Other 08/09/2010 Contrast dye Penicillins 08/09/2010 Propoxyphene 08/09/2010 Thimerosal 08/09/2010 Thimerosal Swelling 01/06/2022 Medications * Be aware that medications may not be up to date on this document. Alwaysverify current medications with the patient. Medication Sig Dispensed Refills Start Date End Date Status Cyanocobalamin (VITAMIN B-12 IJ) Active Calcium-Vitamin D (CALCIUM + D PO) Active acetaminophen (TYLENOL) 500 MG capsule Take 500 mg by mouth every 8 hours as needed for Fever or Pain Active carvedilol (COREG) 25 MG tablet Take 25 mg by mouth 2 times daily with morning and evening meal Active cetirizine (ZYRTEC) 10 MG tablet Take 10 mg by mouth once daily Active cloNIDine (CATAPRES) 0.1 MG tablet Take 0.1 mg by mouth 2 times daily Active clopidogrel (PLAVIX) 75 MG tablet Take 75 mg by mouth once daily Active diphenhydrAMINE (BENADRYL) 25 MG capsule Take 25 mg by mouth at bedtime Active DULoxetine (CYMBALTA) 60 MG capsule Take 60 mg by mouth once daily Active fenofibrate (LOFIBRA) 160 MG tablet Take 160 mg by mouth once daily Take with largest meal of the day. Active furosemide (LASIX) 20 MG tablet Take 20 mg by mouth once daily Active gabapentin (NEURONTIN) 300 MG capsule Take 300 mg by mouth 2 times daily Active Magnesium 500 MG Take by mouth once daily Active oxybutynin (DITROPAN) 5 MG tablet Take 5 mg by mouth 3 times daily Active pantoprazole EC (PROTONIX) 40 MG tablet Take 40 mg by mouth once daily Active rosuvastatin (CRESTOR) 10 MG tablet Take 10 mg by mouth once daily Active sertraline (ZOLOFT) 25 MG tablet Take 25 mg by mouth once daily Active multivitamins (ONE A DAY) capsule Take 1 capsule by mouth once daily Active lisinopril (PRINIVIL; ZESTRIL) 40 MG tablet 03/10/2022 Act mitch potassium chloride ER (KLOR-CON M) 20 MEQ tablet 03/10/2022 Active sulfamethoxazole-trime thoprim (BACTRIM DS; SEPTRA DS) 800-160 MG tablet 03/28/2022 Active Active Problems Problem Noted Date Diagnosed Date Memory loss 01/06/2022 Fall 12/03/2021 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 Primary hypertension 12/03/2021 CAD (coronary artery disease) 12/03/2021 Gastroesophageal reflux disease without esophagi tis 12/03/2021 Hyperlipidemia 12/03/2021 Neuropathy 12/03/2021 Depression 12/03/2021 Urinary, incontinence, stress female 12/03/2021 Resolved Problems Problem Noted Date Diagnosed Date Resolved Date Intraparenchymal hematoma of brain 12/03/2021 12/03/2021 Brain bleed 12/03/2021 12/03/2021 Immunizations Name Administration Dates Next Due Kayleighflor AMT primary monoval ent 12+ yr 0.3mL Purple cap 07/31/2021,12/29/2020,12/08/2020 INFLUENZA VACCINE 05/17/2019,06/07/2018 INFLUENZA VACCINE, ADJUVANTE D, QUADR. (FLUAD QUADRIVALENT; 65Y+) (AIIV4) 04/27/2020 INFLUENZA VACCINE, HIGH-DOSE , QUADR. (FLUZONE HIGH-DOSE QUADRIVALENT; 65Y+), 0.7 ML (HD-IIV4) 06/04/2021 Social History Tobacco Use Types Packs/Day Years Used Date Smoking Tobacco: Former Smokeless Tobacco: Never Alcohol Use Standard Drinks/Week Comments Yes 2 (1 standard drink = 0.6 oz pur e alcohol) everday AUDIT-C Answer Date Recorded Q1: How often do you have a drink containing alcohol? 4 or more times a week 12/04/2021 Q2: How many drinks containi ng alcohol do you have on a typical day when you are drinking? 1 or 2 Q3: How often do you have si x or more drinks on one occasion? Never 12/04/2021 PHQ-2 Answer Date Recorded PHQ2 TOTAL SCORE 3 05/19/2022 Sex and Gender Information Value Date Recorded Sex Assigned at Not on file Gender Identity Not on file Sexual Orientation Not on file Last Filed Vital Signs Vital Sign Reading Time Taken Comments Blood Pressure 149/74 03/30/2022 1:16 PM CDT Pulse 75 03/30/2022 1:16 PM CDT Temperature 36.4 C (97.5 F) 12/06/2021 11:50 AM CDT Respiratory Rate 18 01/06/2022 11:00 AM CDT Oxygen Saturation 94% 03/30/2022 1:16 PM CDT Inhaled Oxygen Concentration - - Weight 99.8 kg (220 lb) 03/30/2022 1:16 PM CDT Height 165.1 cm (5' 5 ) 03/30/2022 1:16 PM CDT Body Mass Index 36.61 03/30/2022 1:16 PM CDT Plan of Treatment Health Maintenance Due Date Last Done Comments BONE DENSITY TESTING 1950 COLOGUARD (AGES 45-75) - COLON CA SCREENING 1950 COLON MONITORING 1950 COLONOSCOPY - COLON CA SCREENING 1950 CT COLONOGRAPHY - COLON CA SCREENING 1950 Colorectal Cancer Screening 1950 FIT - COLON CA SCREENING 1950 FLEX SIG - COLON CA SCREENING 1950 MAMMOGRAM 1950 HEPATITIS C SCREENING 11/18/1968 DTAP/TDAP/TD VACCINES (1 - Tdap) 1969 PNEUMOCOCCAL VACCINE 50+ (1 of 1 - PCV) 2000 ZOSTER VACCINE (1 of 2) 2000 Respiratory Syncytial Virus (RSV) Vaccine Pt: or over 60 yrs (1 - Risk 60-74 years 1-dose series) 2010 COVID-19 VACCINE ( - season) 2024 07/31/2021, 12/29/2020, 12/08/2020 INFLUENZA VACCINE (#1) 2024 , 04/27/2020, 05/17/2019, Additional history exists DEPRESSION SCREENING 08/28/2024 04/19/2022, 03/30/2022, 03/30/2022 MEDICARE AWV CALENDAR YEAR 2024 HEPATITIS B VACCINE Aged Out No longe r eligible based on patient's age to complete this topic HIB VACCINE Aged Out No longer eligi ble based on patient's age to complete this topic HPV VACCINE Aged Out No longer eligi ble based on patient's age to complete this topic MENINGOCOCCAL (Group B) VACCINE Aged Out No longer eligible based on patient's age to complete this topic MENINGOCOCCAL VACCINE Aged Out No timur john eligible based on patient's age to complete this topic Advance Directives * Full Code (Latest Code Status on File) Date Activated Date Inactivated Comments 12/03/2021 9:02 PM 12/06/2021 5:47 PM Care Teams Equipment Tech Relationship Specialty Start Date End Date Faraz Guevara MD [address] [place] [id number] PCP - General 08/10/10
--- OUTSIDE RECORDS SUMMARY | 2024-10-12 16:19 | XMS_ITS | Patient Health Summary ---
Author Organization [facility] Address [address] [place] [address] Care Team Providers Care Dictating Machine Transcriber Name Role Phone Faraz Guevara MD Primary Care Provider [phone] Note from [facility],non-owned Affiliates and Associated Physician Practices is amultiple site organization consisting of ambulatory clinics and hospital sitesin [place], [place]. This disclosure is being madepursuant to the Care Everywhere program and may not contain all information available regarding this patient. Last updated 18.[facility] Allergies * Aspirin * Codeine * Fluticasone Propionate * Fluticasone(Urticaria) -Medium Criticality * Nitroglycerin * Other(Contrast dye) * Penicillins * Propoxyphene * Thimerosal * Thimerosal(Swelling) Medications * Be aware that medications may not be up to date on this document. Alwaysverify current medications with the patient. * Cyanocobalamin (VITAMIN B-12 IJ) * Calcium-Vitamin D (CALCIUM + D PO) * acetaminophen (TYLENOL) 500 MG capsule Take 500 mg by mouth every 8 hours as needed for Fever or Pain * carvedilol (COREG) 25 MG tablet Take 25 mg by mouth 2 times daily with morning and evening meal * cetirizine (ZYRTEC) 10 MG tablet Take 10 mg by mouth once daily * cloNIDine (CATAPRES) 0.1 MG tablet Take 0.1 mg by mouth 2 times daily * clopidogrel (PLAVIX) 75 MG tablet Take 75 mg by mouth once daily * diphenhydrAMINE (BENADRYL) 25 MG capsule Take 25 mg by mouth at bedtime * DULoxetine (CYMBALTA) 60 MG capsule Take 60 mg by mouth once daily * fenofibrate (LOFIBRA) 160 MG tablet Take 160 mg by mouth once daily Take with largest meal of the day. * furosemide (LASIX) 20 MG tablet Take 20 mg by mouth once daily * gabapentin (NEURONTIN) 300 MG capsule Take 300 mg by mouth 2 times daily * Magnesium 500 MG Take by mouth once daily * oxybutynin (DITROPAN) 5 MG tablet Take 5 mg by mouth 3 times daily * pantoprazole EC (PROTONIX) 40 MG tablet Take 40 mg by mouth once daily * rosuvastatin (CRESTOR) 10 MG tablet Take 10 mg by mouth once daily * sertraline (ZOLOFT) 25 MG tablet Take 25 mg by mouth once daily * multivitamins (ONE A DAY) capsule Take 1 capsule by mouth once daily * lisinopril (PRINIVIL; ZESTRIL) 40 MG tablet(Started 03/10/2022) * potassium chloride ER (KLOR-CON M) 20 MEQ tablet(Started 03/10/2022) * sulfamethoxazole-trimethoprim (BACTRIM DS; SEPTRA DS) 800-160 MG tablet (Started 03/28/2022) Active Problems Problem Noted Date Diagnosed Date Memory loss 01/06/2022 Fall 12/03/2021 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 Primary hypertension 12/03/2021 CAD (coronary artery disease) 12/03/2021 Gastroesophageal reflux disease without esophagi tis 12/03/2021 Hyperlipidemia 12/03/2021 Neuropathy 12/03/2021 Depression 12/03/2021 Urinary, incontinence, stress female 12/03/2021 Resolved Problems Problem Noted Date Diagnosed Date Resolved Date Intraparenchymal hematoma of brain 12/03/2021 12/03/2021 Brain bleed 12/03/2021 12/03/2021 Immunizations * Covid [employer] primary monovalent 12+ yr 0.3mL Purple cap(Given 07/31/2021, 12/29/2020, 12/08/2020) * INFLUENZA VACCINE(Given 05/17/2019, 06/07/2018) * INFLUENZA VACCINE, ADJUVANTED, QUADR. (FLUAD QUADRIVALENT; 65Y+) (AIIV4)(Given 04/27/2020) * INFLUENZA VACCINE, HIGH-DOSE, QUADR. (FLUZONE HIGH-DOSE QUADRIVALENT; 65Y+), 0.7 ML (HD-IIV4)(Given 06/04/2021) Social History Tobacco Use Types Packs/Day Years [...] Mass Index 36.61 03/30/2022 1:16 PM CDT Procedures * CT HEAD WO CONTRAST(Performed 03/30/2022) Performed for IVH (intraventricular hemorrhage) (HCC) * CT HEAD WO CONTRAST(Performed 01/12/2022) Performed for Brain bleed (HCC) * CARDIAC EKG ORDER(Performed 12/06/2021) * TSH REFLEX FREE T4(Performed 12/06/2021) * PHOSPHORUS BLOOD(Performed 12/06/2021) * MAGNESIUM BLOOD(Performed 12/06/2021) * PT-INR [facility](Performed 12/06/2021) * BASIC METABOLIC PANEL (CALCIUM TOTAL)(Performed 12/06/2021) * CBC W/O DIFFERENTIAL(Performed 12/06/2021) * PHOSPHORUS BLOOD(Performed 12/05/2021) * MAGNESIUM BLOOD(Performed 12/05/2021) * PT-INR [facility](Performed 12/05/2021) * BASIC METABOLIC PANEL (CALCIUM TOTAL)(Performed 12/05/2021) * CBC W/O DIFFERENTIAL(Performed 12/05/2021) * BLOOD TYPE VERIFICATION(Performed 12/04/2021) * CT HEAD WO CONTRAST(Performed 12/04/2021) Performed for Brain bleed (HCC) * URINALYSIS W/MICROSCOPIC NO CULTURE(Performed 12/04/2021) * URINE DRUG SCREEN IMMUNOASSAY(Performed 12/04/2021) * PHOSPHORUS BLOOD(Performed 12/04/2021) * MAGNESIUM BLOOD(Performed 12/04/2021) * PT-INR [facility](Performed 12/04/2021) * BASIC METABOLIC PANEL (CALCIUM TOTAL)(Performed 12/04/2021) * CBC W/O DIFFERENTIAL(Performed 12/04/2021) * CT ANGIO BRAIN(Performed 12/03/2021) Performed for Fall, initial encounter * CT LUMBAR SPINE WO CONTRAST(Performed 12/03/2021) Performed for Fall, initial encounter * CT THORACIC SPINE WO CONTRAST(Performed 12/03/2021) Performed for Fall, initial encounter * CT CHEST ABDOMEN PELVIS W CONT(Performed 12/03/2021) Performed for Fall, initial encounter * CT CERVICAL SPINE WO CONTRAST(Performed 12/03/2021) Performed for Fall, initial encounter * CT HEAD WO CONTRAST(Performed 12/03/2021) Performed for Fall, initial encounter * INR WHOLE BLOOD - POINT OF CARE (IP) STROKE(Performed 12/03/2021) * XR CHEST 1VW PORTABLE(Performed 12/03/2021) Performed for Fall, initial encounter * XR PELVIS 1 OR 2VW(Performed 12/03/2021) Performed for Fall, initial encounter * TEG 6S PLATELET MAPPING(Performed 12/03/2021) * CBC W AUTO DIFFERENTIAL(Performed 12/03/2021) * TYPE + SCREEN PANEL(Performed 12/03/2021) * TEG 6 GLOBAL HEMOSTASIS W/ LYSIS(Performed 12/03/2021) * PT-INR [facility](Performed 12/03/2021) * BASIC METABOLIC PANEL (CALCIUM TOTAL)(Performed 12/03/2021) * ALCOHOL ETHYL BLOOD(Performed 12/03/2021) Results * CT HEAD WO CONTRAST (03/30/2022 12:49 PM CDT) Only the most recent of4 resultswithin the time period is included. Anatomical Region Laterality Modality Head Computed Tomogra phy 03/30/2022 2:16 PM CDT Impressions 03/30/2022 2:42 PM CDT IMPRESSION: No acute intracranial hemorrhage, midline shift, or significant mass effect. > Dictated by Alf Lunsford MD (vice president supply chain). I, Marlen Shelton MD have personally reviewed and interpreted this examination/study. > Interpreting Provider: Marlen Shelton MD on 03/30/2022 2:42 PM Narrative 03/30/2022 2:[address] HEAD WO CONTRAST EXAMINATION: Computed tomography (CT) of the head without contrast DATE: 03/30/2022 12:50 PM HISTORY: I61.5: IVH (intraventricular hemorrhage) TECHNIQUE: CT of the head was performed without contrast according to standard protocol. COMPARISON: CT head from 01/12/2022 FINDINGS: No acute intra- or extra-axial fluid collections are identified. There is mild cerebral volume loss with associated ex vacuo ventricular dilatation. The basilar cisterns are patent. No mass effect or midline shift is seen. The known chronic lacunar infarct in the right thalamus seen on the prior brain CT has involuted on this exam. A few chronic lacunar infarcts are again seen in the left basal ganglia. There is no acute loss of chao-white matter differentiation. Mild periventricular white matter hypoattenuation is indicative of chronic small vessel ischemic disease. There is mild vascular calcification of the carotid siphons. No acute calvarial fracture is identified. Postsurgical changes from cataract extractions are seen in the. A small mucous retention cyst is demonstrated in the right maxillary sinus. The mastoid air cells are clear. No soft tissue abnormality is identified. Procedure Note Marlen Shelton MD - 03/30/2022 CT HEAD WO CONTRAST EXAMINATION: Computed tomography (CT) of the head without contrast DATE: 03/30/2022 12:50 PM HISTORY: I61.5: IVH (intraventricular hemorrhage) TECHNIQUE: CT of the head was performed without contrast according to standard protocol. COMPARISON: CT head from 01/12/2022 FINDINGS: No acute intra- or extra-axial fluid collections are identified. Thereis mild cerebral volume loss with associated ex vacuo ventriculardilatation. The basilar cisterns are patent. No mass effect or midline shift isseen. The known chronic lacunar infarct in the right thalamus seen on theprior brain CT has involuted on this exam. A few chronic lacunar infarcts are again seen in the left basal ganglia. There is no acute loss ofgray-white matter differentiation. Mild periventricular white matterhypoattenuation is indicative of chronic small vessel ischemic disease. There is mild vascular calcification of the carotid siphons. No acute calvarial fracture is identified. Postsurgical changes from cataract extractions are seen in the. A small mucous retention cyst isdemonstrated in the right maxillary sinus. The mastoid air cells are clear. No soft tissue abnormality is identified. IMPRESSION: No acute intracranial hemorrhage, midline shift, or significant mass effect. > Dictated by Alf Lunsford MD (vice president supply chain). I, Marlen Shelton MD have personally reviewed and interpreted this examination/study. > Interpreting Provider: Marlen Shelton MD on 03/30/2022 2:42 PM Alem Morrison [employer] VICE PRESIDENT-LINE INSTALLER REPAIRER CT ORDERABLES * CARDIAC EKG ORDER (12/06/2021 7:08 AM CDT) Narrative 12/06/2021 7:08 AM CDT Ordered by an unspecified provider. Scanned Document CARDIAC SERVICES ORD ERABLES * PT-INR [facility] (12/06/2021 1:53 AM CDT) Only the most recent of4 resultswithin the time period is included. PT 13.3 12.1 - 14.8 Seconds 12/06/2021 3:48 AM CDT [facility] INR 1.0 See Comment 12/06/2021 3:48 AM T [facility] Comment:The suggested therap eutic range for standard coumadin (warfarin) therapy is an INR of 2.0-3.0. For high-risk patients (Mechanical Mitral Valve Prosthesis, etc.), the suggested prophylactic therapeutic range is an INR of 2.5-3.5. Blood BLOOD SPECIMEN / Unknown Lab Venipuncture / Unknown 12/06/2021 1:53 AM CDT 12/06/2021 3:33 AM CDT Sathya Ambrosio MD LAB - COAGULATION OR DERABLES Performing Organization Address City/[facility]/ZIP Co de Phone Number [address] [address], [facility] [phone] * TSH REFLEX FREE T4 (12/06/2021 1:53 AM CDT) TSH 0.550 0.350 - 4.940 uIU/mL 12/06/2021 4:30 AM T [facility] Blood BLOOD SPECIMEN / Unknown Lab Venipuncture / Unknown 12/06/2021 1:53 AM CDT 12/06/2021 3:39 AM CDT Jesus Hdz MD LAB - CHEMISTRY [facility] Performing Organization Address [facility]/ZIP Co de Phone Number [address] [address], [facility] [phone] * CBC W/O DIFFERENTIAL (12/06/2021 1:53 AM CDT) Only the most recent of3 resultswithin the time period is included. WBC 6.7 3.5 - 10.5 10 3/uL 12/06/2021 3:45 AM [facility] RBC 4.46 3.80 - 5.20 10 6/uL 12/06/2021 3:45 AM [facility] Hemoglobin 12.7 12.0 - 15.6 g/dL 12/06/2021 3:45 AM T [facility] Hematocrit 39.1 35.0 - 45.0 % 12/06/2021 3:45 AM T [facility] MCV 87.7 80.7 - 98.3 fL 12/06/2021 3:45 AM [facility] MCH 28.5 26.7 - 34.0 pg 12/06/2021 3:45 AM [facility] MCHC 32.5 30.8 - 35.9 g/dL 12/06/2021 3:45 AM T [facility] Platelet Count 210 150 - 400 10 3/uL 12/06/2021 3:45 AM [facility] RDW-SD 43.8 36.0 - 50.0 fL 12/06/2021 3:45 AM [facility] RDW-CV 13.7 11.2 - 14.8 % 12/06/2021 3:45 AM [facility] MPV 10.6 9.4 - 12.9 fL 12/06/2021 3:45 AM [facility] nRBC Absolute 0.00 0 10 3/uL 12/06/2021 3:45 AM [facility] nRBC Auto 0.0 0 /100 WBC 12/06/2021 3:45 AM [facility] Blood BLOOD SPECIMEN / Unknown Lab Venipuncture / Unknown 12/06/2021 1:53 AM CDT 12/06/2021 3:39 AM CDT Sathya Ambrosio MD LAB - HEMATOLOGY ORD ERABLES [address] [address], [facility] [phone] * (ABNORMAL) BASIC METABOLIC PANEL (CALCIUM TOTAL) (12/06/2021 1:53 AM CDT) Only the most recent of4 resultswithin the time period is included. BUN 8 7 - 26 mg/dL 12/06/2021 4:12 AM [facility] Creatinine 0.55(L) 0.56 - 0.96 mg/dL 12/06/2021 4:12 AM [facility] Sodium 141 136 - 145 mmol/L 12/06/2021 4:12 AM [facility] Potassium 3.2(L) 3.5 - 4.5 mmol/L 12/06/2021 4:12 AM [facility] Chloride 106 98 - 107 mmol/L 12/06/2021 4:12 AM [facility] CO2 25 22 - 29 mmol/L 12/06/2021 4:12 AM [facility] Glucose 115 70 - 115 mg/dL 12/06/2021 4:12 AM [facility] Calcium 9.4 8.4 - 10.2 mg/dL 12/06/2021 4:12 AM [facility] Anion Gap 13 8 - 18 12/06/2021 4:12 AM [facility] BUN/Creatinine Ratio 15 7 - 23 12/06/2021 4:12 AM [facility] Osmolality Calculated 291 270 - 300 mOsm/kg 12/06/2021 4:12 AM [facility] eGFR by CKD-EPI >90 >=90 mL/min/1.7 3 m2 12/06/2021 4:12 AM [facility] Blood BLOOD SPECIMEN / Unknown Lab Venipuncture / Unknown 12/06/2021 1:53 AM CDT 12/06/2021 3:39 AM CDT Sathya Ambrosio MD LAB - CHEMISTRY [facility] Organization Address City/State/ZIP Co de Phone Number [facility] [address] [place] [address], [facility] [phone] * PHOSPHORUS BLOOD (12/06/2021 1:53 AM CDT) Only the most recent of3 resultswithin the time period is included. Phosphorus 2.9 2.9 - 5.1 mg/dL 12/06/2021 4:12 AM [facility] Blood BLOOD SPECIMEN / Unknown Lab Venipuncture / Unknown 12/06/2021 1:53 AM CDT 12/06/2021 3:39 AM CDT Sathya Ambrosio MD LAB - CHEMISTRY [facility] Performing Organization Address [facility]/ZIP Co de Phone Number [facility] [address] [place] [address], [place] [phone] * MAGNESIUM BLOOD (12/06/2021 1:53 AM CDT) Only the most recent of3 resultswithin the time period is included. Magnesium 1.8 1.6 - 2.6 mg/dL 12/06/2021 4:12 AM CDT [facility] Blood BLOOD SPECIMEN / Unknown Lab Venipuncture / Unknown 12/06/2021 1:53 AM CDT 12/06/2021 3:39 AM CDT Sathya Ambrosio MD LAB - CHEMISTRY [facility] Performing Organization Address [facility]/ZIP Co de Phone Number [address] [address], [facility] [phone] * BLOOD TYPE VERIFICATION (12/04/2021 10:08 AM CDT) ABO O 12/04/2021 11:58 AM CDT [facility] Rh Type POS 12/04/2021 11:58 AM CDT [facility] Blood Bank BLOOD SPECIMEN / Unknown Venipuncture / Unknown 12/04/2021 10:08 AM CDT 12/04/2021 10:21 AM CDT Provider Unknown LAB - BLOOD BANK ORD ERAKAITLYNN Performing Organization Address City/[facility]/ZIP Co de Phone Number [facility] [address] [place] [address], [facility] [phone] * (ABNORMAL) URINALYSIS W/MICROSCOPIC NO CULTURE (12/04/2021 12:41 AM CDT) Color UA Yellow Straw, Yellow 12/04/2021 12:50 AM CDT [facility] Clarity UA Clear Clear 12/04/2021 12:50 AM CDT [facility] Specific Enochs UA 1.039(H) 1.005 - 1.030 12/04/2021 12:50 AM [facility] pH UA 6.0 5.0 - 8.0 pH 12/04/2021 12:50 AM [facility] Protein UA Negative Negative 12/04/2021 12:50 AM [facility] Glucose UA Negative Negative 12/04/2021 12:50 AM [facility] Ketone UA Negative Negative 12/04/2021 12:50 AM [facility] Bilirubin UA Negative Negative 12/04/2021 12:50 AM [facility] Blood UA Negative Negative 12/04/2021 12:50 AM [facility] Nitrite UA Negative Negative 12/04/2021 12:50 AM [facility] Leukocyte Esterase Negative Negative 12/04/2021 12:50 AM [facility] Urobilinogen UA Negative Negative mg/dL 12/04/2021 12:50 AM [facility] RBC UA 3-5 None Seen, 0-2, 3-5 /HPF 12/04/2021 12:50 AM [facility] WBC UA 0-5 None Seen, 0-5 /HPF 12/04/2021 12:50 AM [facility] Squamous Epithelial Cells UA 0-2 None Seen, 0-2, 3-5 /HPF 12/04/2021 12:50 AM [facility] Urine URINE SPECIMEN OBTAINED BY CLEAN CATCH PROCEDURE / Unknown Collection / Unknown 12/04/2021 12:41 AM CDT 12/04/2021 12:[address] [facility] - 12/04/2021 12:50 AM CDT Kodi Skelton MD LAB - URINALYSIS O RDERABLES [address] [address], [facility] [phone] * (ABNORMAL) URINE DRUG SCREEN IMMUNOASSAY (12/04/2021 12:41 AM CDT) [facility] Amphetamines Screen Urine Negative Negative : < 1000 ng/mL 12/04/2021 12:59 AM [facility] Barbiturates Screen Urine Negative Negative : < 200 ng/mL 12/04/2021 12:59 AM [facility] Benzodiazepine Screen Urine Negative Negative : < 200 ng/mL 12/04/2021 12:59 AM [facility] Opiates Urine Positive(A) Negative : < 300 ng/mL 12/04/2021 12:59 AM [facility] Comment:Positive urine opiat e screening results should be confirmed by another generally accepted non-immunological method such as gas chromatography or mass spectrometry. Cocaine Metabolites Urine Negative Negative : < 300 ng/mL 12/04/2021 12:59 AM [facility] Phencyclidine Screen Urine Negative Negative : < 25 ng/ml 12/04/2021 12:59 AM [facility] Cannabinoids Screen Urine Negative Negative : <50 ng/mL 12/04/2021 12:59 AM [facility] Methadone Screen Urine Negative Negative : < 300 ng/mL 12/04/2021 12:59 AM [facility] Fentanyl Screen Urine Negative Negative : <1.0 ng/mL 12/04/2021 12:59 AM [facility] Urine URINE / Unknown Collection / Unknown 12/04/2021 12:41 AM CDT 12/04/2021 12:[address] [facility] - 12/04/2021 12:59 AM [facility] The Urine Toxicology Screening Panel does not screen for Propoxyphene, Meprobamate, Carisoprodol, Trazodone, ifzu-jmy-ncxtgen medications and/or volatiles (Acetone, Isopropanol, Methanol or Ethylene Glycol). Ethanol, Salicylate, Acetaminophen, Tricyclic Antidepressants and several therapeutic drugs may be individually assayed in serum or plasma specimen. Toxicology testing by the [facility] is an aid to medical diagnosis and treatment of patients. No documented chain of custody was maintained. Results are intended to be used for clinical purposes only. Kodi Skelton MD LAB - URINE CHEMIS TRY ORDERABLES [facility] [address] [place] [address], [facility] [phone] * CT CHEST ABDOMEN PELVIS W CONT - Abdomen-pelvis trauma, blunt or penetrating (12/03/2021 7:19 PM CDT) Anatomical Region Laterality Modality Chest, Abdomen, Pelvis Computed Tomography 12/03/2021 7:16 PM CDT Impressions 12/04/2021 1:07 PM CDT Impression: 1.No acute findings in the chest, abdomen or pelvis. 2.Multiple hypoattenuating nodules within the thyroid, largest in the left thyroid lobe. Recommend nonemergent thyroid ultrasound if not completed. 3.1 cm right adrenal gland nodule. Recommend nonemergent adrenal protocol CT for evaluation. Report drafted by Krishna Francis (resident) I, Dr. HIGINIO SALDAÑA have personally reviewed and interpreted this examination/study. This report was electronically signed by HIGINIO SALDAÑA on 12/04/2021 1:07 PM . Narrative 12/04/2021 1:07 PM CDT Procedure Information DATE: 12/03/2021 7:23 PM EXAMINATION: Computed tomography (CT) of the chest, abdomen, and pelvis with contrast TECHNIQUE: CT of the chest, abdomen, and pelvis was performed after the uneventful administration of 100 mL of Isovue 370 intravenous contrast according to standard protocol. Clinical Information HISTORY: Trauma COMPARISON: None. Findings Chest: Lines/Tubes: None. Lower neck and axillae: Multiple hypoattenuating nodules within thyroid, largest in the left thyroid lobe measuring approximately 1.1 cm (series 3 image 12). There is no axillary lymphadenopathy. Mediastinum and Lauren: No enlarged lymph nodes are present. Heart and Pericardium: Mild cardiomegaly is present. No pericardial fluid or thickening is present. Prominent left atrial appendage is noted. Coronary atherosclerosis is noted. Lung Parenchyma, Airways, and Pleural Spaces: There is mild interlobular septal thickening in the bilateral lung bases and mild bilateral dependent atelectasis. No evidence of focal consolidation, pleural effusion or pneumothorax. Subtle filling defects in the bilateral lower lobe pulmonary arteries, likely artifactual. A small nodule in the trachea seen on series 5, image 30 likely representing mucous Abdomen/pelvis: Hepatobiliary: The liver enhances homogeneously. There is no intra or extra hepatic biliary dilatation. There is no gallbladder wall thickening or pericholecystic fluid. No radiopaque gallstones are seen. Pancreas: Pancreas appears unremarkable. Spleen: Spleen appears unremarkable. Kidneys: Subcentimeter hypoattenuating lesions in the bilateral kidneys, too small to catheterize. The kidneys otherwise enhance appropriately. There is no evidence of hydronephrosis or hydroureter. Adrenals: 1.1 cm hypoattenuating lesion of the right adrenal gland measuring approximately 91 Hounsfield units. The left adrenal gland is unremarkable. Retroperitoneum: There is no retroperitoneal lymphadenopathy or free fluid. Peritoneum: There is no free intraperitoneal air or free fluid. Gastrointestinal: Small hiatal hernia is noted. Otherwise, the stomach and visualized loops of bowel are unremarkable. Appendix: The appendix is not well visualized on this exam. Pelvic Structures: The urinary bladder is distended and appears unremarkable. Postoperative changes of tubal ligation are noted. There is no free fluid within the pelvis. There is no pelvic lymphadenopathy. Vasculature: Scattered atherosclerotic vasculature changes. Bones: Trace anterolisthesis of L3 over L4. Posterior spinal fixation with interpedicular screws and bilateral rods at L4-L5. Spinal cord stimulator in the dorsal epidural space at the T7/T8 vertebral level. Multilevel mild degenerative changes are seen throughout the spine. Cortical thinning and irregularity of the left iliac bone. Degenerative changes are seen in the bilateral hip joints and right shoulder joint. Hemangioma within the T10 vertebral body. Soft tissues: Normal. Procedure Note Higinio Saldaña MD - 12/04/2021 Procedure Information DATE: 12/03/2021 7:23 PM EXAMINATION: Computed tomography (CT) of the chest, abdomen, and pelvis with contrast TECHNIQUE: CT of the chest, abdomen, and pelvis was performed after the uneventful administration of 100 mL of Isovue 370 intravenous contrast according to standard protocol. Clinical Information HISTORY: Trauma COMPARISON: None. Findings Chest: Lines/Tubes: None. Lower neck and axillae: Multiple hypoattenuating nodules within thyroid, largest in the left thyroid lobe measuring approximately 1.1 cm (series 3 image 12). Thereis no axillary lymphadenopathy. Mediastinum and Lauren: No enlarged lymph nodes are present. Heart and Pericardium: Mild cardiomegaly is present. No pericardial fluid or thickening is present. Prominent left atrial appendage is noted. Coronary atherosclerosis is noted. Lung Parenchyma, Airways, and Pleural Spaces: There is mild interlobular septal thickening in the bilateral lung bases and mild bilateral dependent atelectasis. No evidence of focal consolidation, pleural effusion or pneumothorax. Subtle filling defectsin the bilateral lower lobe pulmonary arteries, likely artifactual. A small nodule in the trachea seen on series 5, image 30 likely representing mucous Abdomen/pelvis: Hepatobiliary: The liver enhances homogeneously. There is no intra or extra hepatic biliary dilatation. There is no gallbladder wall thickening or pericholecystic fluid. No radiopaque gallstones are seen. Pancreas: Pancreas appears unremarkable. Spleen: Spleen appears unremarkable. Kidneys: Subcentimeter hypoattenuating lesions in the bilateral kidneys, toosmall to catheterize. The kidneys otherwise enhance appropriately. There is no evidence of hydronephrosis or hydroureter. Adrenals: 1.1 cm hypoattenuating lesion of the right adrenal gland measuring approximately 91 Hounsfield units. The left adrenal gland isunremarkable. Retroperitoneum: There is no retroperitoneal lymphadenopathy or free fluid. Peritoneum: There is no free intraperitoneal air or free fluid. Gastrointestinal: Small hiatal hernia is noted. Otherwise, the stomach and visualizedloops of bowel are unremarkable. Appendix: The appendix is not well visualized on this exam. Pelvic Structures: The urinary bladder is distended and appears unremarkable. Postoperative changes of tubal ligation are noted. There is no free fluid within the pelvis. There is no pelvic lymphadenopathy. Vasculature: Scattered atherosclerotic vasculature changes. Bones: Trace anterolisthesis of L3 over L4. Posterior spinal fixation with interpedicular screws and bilateral rods at L4-L5. Spinal cordstimulator in the dorsal epidural space at the T7/T8 vertebral level. Multilevelmild degenerative changes are seen throughout the spine. Cortical thinningand irregularity of the left iliac bone. Degenerative changes are seen inthe bilateral hip joints and right shoulder joint. Hemangioma within the T10 vertebral body. Soft tissues: Normal. Impression: 1.No acute findings in the chest, abdomen or pelvis. 2.Multiple hypoattenuating nodules within the thyroid, largest in theleft thyroid lobe. Recommend nonemergent thyroid ultrasound if not completed. 3.1 cm right adrenal gland nodule. Recommend nonemergent adrenalprotocol CT for evaluation. Report drafted by Krishna Francis (resident) I, Dr. HIGINIO SALDAÑA have personally reviewed and interpreted this examination/study. This report was electronically signed by HIGINIO SALDAÑA on 12/04/2021 1:07 PM. Kodi Skelton MD CT ORDERABLES * CT LUMBAR SPINE WO CONTRAST - T/L-spine trauma, Spine fracture (12/03/2021 7:19 PM CDT) Anatomical Region Laterality Modality Spine Computed Tomogra phy 12/03/2021 7:34 PM CDT Impressions 12/04/2021 8:07 AM CDT IMPRESSION: 1.Acute intraparenchymal hemorrhage within the right thalamus and posterior limb of internal capsule as detailed above with extension into the right lateral ventricle. Adjacent edema with associated mass effect. Associated 2 mm right to left midline shift. 2.A few additional focal hyperdensities in the right medial cerebellum inferiorly, which may represent hemorrhagic contusion versus subarachnoid hemorrhage versus artifact. 3.No evidence of acute fracture in the cervical, thoracic, or lumbar spine. Please refer to separately dictated CT body report for intrathoracic and intra-abdominal findings. Preliminary results regarding intracranial hemorrhage was reported by Tash Kingston M.D. ([employer]), electronically on 12/03/2021 at 7:49 PM I, Dr. CAMILO ALVAREZ have personally reviewed and interpreted this examination/study. This report was electronically signed by CAMILO ALVAREZ on 12/04/2021 8:07 AM . Narrative 12/04/2021 8:07 AM CDT EXAMINATION: 1. CT OF THE HEAD WITHOUT CONTRAST 2. CT OF THE CERVICAL SPINE WITHOUT CONTRAST 3. CT OF THE THORACIC SPINE WITHOUT CONTRAST 4. CT OF THE LUMBAR SPINE WITHOUT CONTRAST HISTORY: Trauma TECHNIQUE: CT of the head and cervical spine was performed without contrast according to standard protocol. Reformatted axial, sagittal, and coronal images of the thoracic and lumbar spine were obtained by the technologist from a concurrently performed body CT and sent to the workstation for review. COMPARISON: None. FINDINGS: HEAD: There is an acute intraparenchymal hemorrhage within the right thalamus and likely posterior limb of the internal capsule measuring approximately 2.6 x 1.7 x 2.0 cm in AP, transverse and cephalocaudal dimensions (series 4, image 17; series 6, image 40). There is intraventricular extension of the hemorrhage into the right lateral ventricle as well as minimal surrounding edema. There is mass effect on the right lateral ventricle and third ventricle. There is a 2 mm right to left midline shift at the level of the foramen of Magallanes (series 6, image 41). There are additional few focal hyperdensities in the right medial cerebellum inferiorly (series 4, image 28), which may represent hemorrhagic contusion versus subarachnoid hemorrhage versus artifact. The basilar cisterns are patent. The chao-white matter differentiation otherwise appears normal. No acute calvarial fracture is identified.. The orbits appear normal. The paranasal sinuses are clear. The mastoid air cells are clear. No soft tissue abnormality is identified. CERVICAL SPINE: The alignment is normal. No fracture, perched facet, spondylolisthesis or suspicious intrinsic bony lesion is identified. Vertebral bodies are normal in height. Other than middle atlantoaxial joint osteoarthritis, the craniocervical junction appears normal. The intervertebral disc spaces are normal in heights. No posterior disc abnormality, blood in central canal or central canal stenosis is seen. There is mild to moderate degenerative disc disease. There are varying degrees of moderate to severe facet osteoarthritis. There are varying degrees of mild uncovertebral joint osteoarthritis, moderate bilaterally at C5-C6 and C6-C7 with the same degree of neural foraminal stenosis at these levels. Subcentimeter hypodense nodules in the thyroid gland are indeterminate. THORACIC SPINE: The alignment is normal. No fracture, perched facet, spondylolisthesis or suspicious intrinsic bony lesion is identified. Vertebral bodies are normal in height. There is mild to moderate degenerative disc disease. No posterior disc abnormality, blood in central canal or central canal stenosis is seen. There is a spinal stimulator device at the T8-T9 levels in the dorsal epidural space, entering the central canal at T9-T10 level, with the power pack in the subcutaneous fat of the left parasagittal thoracolumbar region. The facets appear normal. No neural foraminal stenosis is seen. There is atherosclerotic calcification of the abdominal aorta. The paravertebral soft tissues are unremarkable. Dependent atelectasis in the imaged portion of the lungs and ill-defined peribronchiolar groundglass opacities of right upper lobe are visible. LUMBAR SPINE: The patient is status post partial resection of superior articular process of L5 and laminotomy on the left side, discectomy, interbody fusion and posterior fusion at L5-S1. There is mild anterolisthesis of L3 on L4 due to facet osteoarthritis. Lordosis is otherwise normal. Vertebral bodies are normal in height without evidence of acute fracture. There is mild degenerative disc disease outside the surgical levels with vacuum phenomenon at the L1-L2, L2-L3 and L3-L4 levels. There is moderate facet osteoarthritis at the T12-L1 and L1-L2 levels and advanced facet osteoarthritis at the L2-L3 and L3-L4 levels. The L4-L5 facets are fused and there is mild right and moderate left facet osteoarthritis at L5-S1. No posterior disc abnormalities identified. However, there is mild spinal stenosis in midline and moderate to severe lateral recess stenosis due to severe facet osteoarthritis at the L2-L3 and L3-L4 levels. The thecal sac is decompressed at L4-L5 and is normal in size at the L5-S1 level. Mild to moderate multilevel neural foraminal stenosis is seen. There is atherosclerotic calcification of the abdominal aorta and its branch vessels. There is muscular atrophy of posterior paravertebral muscles at the L5-S1 level. Procedure Note Camilo Alvarez MD - 12/04/2021 EXAMINATION: 1. CT OF THE HEAD WITHOUT CONTRAST 2. CT OF THE CERVICAL SPINE WITHOUT CONTRAST 3. CT OF THE THORACIC SPINE WITHOUT CONTRAST 4. CT OF THE LUMBAR SPINE WITHOUT CONTRAST HISTORY: Trauma TECHNIQUE: CT of the head and cervical spine was performed without contrast according to standard protocol. Reformatted axial, sagittal,and coronal images of the thoracic and lumbar spine were obtained by the technologist from a concurrently performed body CT and sent to the workstation for review. COMPARISON: None. FINDINGS: HEAD: There is an acute intraparenchymal hemorrhage within the right thalamus and likely posterior limb of the internal capsule measuringapproximately 2.6 x 1.7 x 2.0 cm in AP, transverse and cephalocaudal dimensions(series 4, image 17; series 6, image 40). There is intraventricular extension of the hemorrhage into the right lateral ventricle as well as minimal surrounding edema. There is mass effect on the right lateral ventricleand third ventricle. There is a 2 mm right to left midline shift at thelevel of the foramen of Magallanes (series 6, image 41). There are additional few focal hyperdensities in the right medial cerebellum inferiorly (series4, image 28), which may represent hemorrhagic contusion versus subarachnoid hemorrhage versus artifact. The basilar cisterns are patent. The chao-white matter differentiation otherwise appears normal. No acute calvarial fracture is identified.. The orbits appear normal.The paranasal sinuses are clear. The mastoid air cells are clear. No soft tissue abnormality is identified. CERVICAL SPINE: The alignment is normal. No fracture, perched facet, spondylolisthesisor suspicious intrinsic bony lesion is identified. Vertebral bodies are normal in height. Other than middle atlantoaxial joint osteoarthritis,the craniocervical junction appears normal. The intervertebral disc spacesare normal in heights. No posterior disc abnormality, blood in central canal or central canal stenosis is seen. There is mild to moderatedegenerative disc disease. There are varying degrees of moderate to severe facet osteoarthritis. There are varying degrees of mild uncovertebral joint osteoarthritis, moderate bilaterally at C5-C6 and C6-C7 with the same degree of neural foraminal stenosis at these levels. Subcentimeter hypodense nodules in the thyroid gland are indeterminate. THORACIC SPINE: The alignment is normal. No fracture, perched facet, spondylolisthesisor suspicious intrinsic bony lesion is identified. Vertebral bodies are normal in height. There is mild to moderate degenerative disc disease.No posterior disc abnormality, blood in central canal or central canal stenosis is seen. There is a spinal stimulator device at the T8-T9 levels in the dorsal epidural space, entering the central canal at T9-T10 level, with thepower pack in the subcutaneous fat of the left parasagittal thoracolumbar region. The facets appear normal. No neural foraminal stenosis is seen. There is atherosclerotic calcification of the abdominal aorta. The paravertebral soft tissues are unremarkable. Dependent atelectasis in the imagedportion of the lungs and ill-defined peribronchiolar groundglass opacities of right upper lobe are visible. LUMBAR SPINE: The patient is status post partial resection of superior articularprocess of L5 and laminotomy on the left side, discectomy, interbody fusion and posterior fusion at L5-S1. There is mild anterolisthesis of L3 on L4 due to facet osteoarthritis. Lordosis is otherwise normal. Vertebral bodies are normal in height without evidence of acute fracture. There is mild degenerative disc disease outside the surgical levels with vacuum phenomenon at the L1-L2, L2-L3 and L3-L4 levels. There is moderate facet osteoarthritis at the T12-L1 and L1-L2 levelsand advanced facet osteoarthritis at the L2-L3 and L3-L4 levels. The L4-L5 facets are fused and there is mild right and moderate left facet osteoarthritis at L5-S1. No posterior disc abnormalities identified. However, there is mild spinal stenosis in midline and moderate to severe lateral recess stenosis due to severe facet osteoarthritis at the L2-L3 and L3-L4 levels. The thecal sac is decompressed at L4-L5 and is normalin size at the L5-S1 level. Mild to moderate multilevel neural foraminal stenosis is seen. There is atherosclerotic calcification of theabdominal aorta and its branch vessels. There is muscular atrophy of posterior paravertebral muscles at the L5-S1 level. IMPRESSION: 1.Acute intraparenchymal hemorrhage within the right thalamus and posterior limb of internal capsule as detailed above with extension into the right lateral ventricle. Adjacent edema with associated mass effect. Associated 2 mm right to left midline shift. 2.A few additional focal hyperdensities in the right medial cerebellum inferiorly, which may represent hemorrhagic contusion versussubarachnoid hemorrhage versus artifact. 3.No evidence of acute fracture in the cervical, thoracic, or lumbarspine. Please refer to separately dictated CT body report for intrathoracic and intra-abdominal findings. Preliminary results regarding intracranial hemorrhage was reported by Tash Kingston M.D. ([employer]), electronically on 12/03/2021 at 7:49 PM I, Dr. CAMILO ALVAREZ have personally reviewed and interpreted this examination/study. This report was electronically signed by CAMILO ALVAREZ on 12/04/2021 8:07AM . Kodi Skelton MD CT ORDERABLES * CT THORACIC SPINE WO CONTRAST - T/L-spine trauma, spine fracture (12/03/2021 7:19 PM CDT) Anatomical Region Laterality Modality Spine Computed Tomogra phy 12/03/2021 7:34 PM CDT Impressions 12/04/2021 8:07 AM CDT IMPRESSION: 1.Acute intraparenchymal hemorrhage within the right thalamus and posterior limb of internal capsule as detailed above with extension into the right lateral ventricle. Adjacent edema with associated mass effect. Associated 2 mm right to left midline shift. 2.A few additional focal hyperdensities in the right medial cerebellum inferiorly, which may represent hemorrhagic contusion versus subarachnoid hemorrhage versus artifact. 3.No evidence of acute fracture in the cervical, thoracic, or lumbar spine. Please refer to separately dictated CT body report for intrathoracic and intra-abdominal findings. Preliminary results regarding intracranial hemorrhage was reported by Tash Kingston M.D. ([employer]), electronically on 12/03/2021 at 7:49 PM I, Dr. CAMILO ALVAREZ have personally reviewed and interpreted this examination/study. This report was electronically signed by CAMILO ALVAREZ on 12/04/2021 8:07 AM . Narrative 12/04/2021 8:07 AM CDT EXAMINATION: 1. CT OF THE HEAD WITHOUT CONTRAST 2. CT OF THE CERVICAL SPINE WITHOUT CONTRAST 3. CT OF THE THORACIC SPINE WITHOUT CONTRAST 4. CT OF THE LUMBAR SPINE WITHOUT CONTRAST HISTORY: Trauma TECHNIQUE: CT of the head and cervical spine was performed without contrast according to standard protocol. Reformatted axial, sagittal, and coronal images of the thoracic and lumbar spine were obtained by the technologist from a concurrently performed body CT and sent to the workstation for review. COMPARISON: None. FINDINGS: HEAD: There is an acute intraparenchymal hemorrhage within the right thalamus and likely posterior limb of the internal capsule measuring approximately 2.6 x 1.7 x 2.0 cm in AP, transverse and cephalocaudal dimensions (series 4, image 17; series 6, image 40). There is intraventricular extension of the hemorrhage into the right lateral ventricle as well as minimal surrounding edema. There is mass effect on the right lateral ventricle and third ventricle. There is a 2 mm right to left midline shift at the level of the foramen of Magallanes (series 6, image 41). There are additional few focal hyperdensities in the right medial cerebellum inferiorly (series 4, image 28), which may represent hemorrhagic contusion versus subarachnoid hemorrhage versus artifact. The basilar cisterns are patent. The chao-white matter differentiation otherwise appears normal. No acute calvarial fracture is identified.. The orbits appear normal. The paranasal sinuses are clear. The mastoid air cells are clear. No soft tissue abnormality is identified. CERVICAL SPINE: The alignment is normal. No fracture, perched facet, spondylolisthesis or suspicious intrinsic bony lesion is identified. Vertebral bodies are normal in height. Other than middle atlantoaxial joint osteoarthritis, the craniocervical junction appears normal. The intervertebral disc spaces are normal in heights. No posterior disc abnormality, blood in central canal or central canal stenosis is seen. There is mild to moderate degenerative disc disease. There are varying degrees of moderate to severe facet osteoarthritis. There are varying degrees of mild uncovertebral joint osteoarthritis, moderate bilaterally at C5-C6 and C6-C7 with the same degree of neural foraminal stenosis at these levels. Subcentimeter hypodense nodules in the thyroid gland are indeterminate. THORACIC SPINE: The alignment is normal. No fracture, perched facet, spondylolisthesis or suspicious intrinsic bony lesion is identified. Vertebral bodies are normal in height. There is mild to moderate degenerative disc disease. No posterior disc abnormality, blood in central canal or central canal stenosis is seen. There is a spinal stimulator device at the T8-T9 levels in the dorsal epidural space, entering the central canal at T9-T10 level, with the power pack in the subcutaneous fat of the left parasagittal thoracolumbar region. The facets appear normal. No neural foraminal stenosis is seen. There is atherosclerotic calcification of the abdominal aorta. The paravertebral soft tissues are unremarkable. Dependent atelectasis in the imaged portion of the lungs and ill-defined peribronchiolar groundglass opacities of right upper lobe are visible. LUMBAR SPINE: The patient is status post partial resection of superior articular process of L5 and laminotomy on the left side, discectomy, interbody fusion and posterior fusion at L5-S1. There is mild anterolisthesis of L3 on L4 due to facet osteoarthritis. Lordosis is otherwise normal. Vertebral bodies are normal in height without evidence of acute fracture. There is mild degenerative disc disease outside the surgical levels with vacuum phenomenon at the L1-L2, L2-L3 and L3-L4 levels. There is moderate facet osteoarthritis at the T12-L1 and L1-L2 levels and advanced facet osteoarthritis at the L2-L3 and L3-L4 levels. The L4-L5 facets are fused and there is mild right and moderate left facet osteoarthritis at L5-S1. No posterior disc abnormalities identified. However, there is mild spinal stenosis in midline and moderate to severe lateral recess stenosis due to severe facet osteoarthritis at the L2-L3 and L3-L4 levels. The thecal sac is decompressed at L4-L5 and is normal in size at the L5-S1 level. Mild to moderate multilevel neural foraminal stenosis is seen. There is atherosclerotic calcification of the abdominal aorta and its branch vessels. There is muscular atrophy of posterior paravertebral muscles at the L5-S1 level. Procedure Note Camilo Alvarez MD - 12/04/2021 EXAMINATION: 1. CT OF THE HEAD WITHOUT CONTRAST 2. CT OF THE CERVICAL SPINE WITHOUT CONTRAST 3. CT OF THE THORACIC SPINE WITHOUT CONTRAST 4. CT OF THE LUMBAR SPINE WITHOUT CONTRAST HISTORY: Trauma TECHNIQUE: CT of the head and cervical spine was performed without contrast according to standard protocol. Reformatted axial, sagittal,and coronal images of the thoracic and lumbar spine were obtained by the technologist from a concurrently performed body CT and sent to the workstation for review. COMPARISON: None. FINDINGS: HEAD: There is an acute intraparenchymal hemorrhage within the right thalamus and likely posterior limb of the internal capsule measuringapproximately 2.6 x 1.7 x 2.0 cm in AP, transverse and cephalocaudal dimensions(series 4, image 17; series 6, image 40). There is intraventricular extension of the hemorrhage into the right lateral ventricle as well as minimal surrounding edema. There is mass effect on the right lateral ventricleand third ventricle. There is a 2 mm right to left midline shift at thelevel of the foramen of Magallanes (series 6, image 41). There are additional few focal hyperdensities in the right medial cerebellum inferiorly (series4, image 28), which may represent hemorrhagic contusion versus subarachnoid hemorrhage versus artifact. The basilar cisterns are patent. The chao-white matter differentiation otherwise appears normal. No acute calvarial fracture is identified.. The orbits appear normal.The paranasal sinuses are clear. The mastoid air cells are clear. No soft tissue abnormality is identified. CERVICAL SPINE: The alignment is normal. No fracture, perched facet, spondylolisthesisor suspicious intrinsic bony lesion is identified. Vertebral bodies are normal in height. Other than middle atlantoaxial joint osteoarthritis,the craniocervical junction appears normal. The intervertebral disc spacesare normal in heights. No posterior disc abnormality, blood in central canal or central canal stenosis is seen. There is mild to moderatedegenerative disc disease. There are varying degrees of moderate to severe facet osteoarthritis. There are varying degrees of mild uncovertebral joint osteoarthritis, moderate bilaterally at C5-C6 and C6-C7 with the same degree of neural foraminal stenosis at these levels. Subcentimeter hypodense nodules in the thyroid gland are indeterminate. THORACIC SPINE: The alignment is normal. No fracture, perched facet, spondylolisthesisor suspicious intrinsic bony lesion is identified. Vertebral bodies are normal in height. There is mild to moderate degenerative disc disease.No posterior disc abnormality, blood in central canal or central canal stenosis is seen. There is a spinal stimulator device at the T8-T9 levels in the dorsal epidural space, entering the central canal at T9-T10 level, with thepower pack in the subcutaneous fat of the left parasagittal thoracolumbar region. The facets appear normal. No neural foraminal stenosis is seen. There is atherosclerotic calcification of the abdominal aorta. The paravertebral soft tissues are unremarkable. Dependent atelectasis in the imagedportion of the lungs and ill-defined peribronchiolar groundglass opacities of right upper lobe are visible. LUMBAR SPINE: The patient is status post partial resection of superior articularprocess of L5 and laminotomy on the left side, discectomy, interbody fusion and posterior fusion at L5-S1. There is mild anterolisthesis of L3 on L4 due to facet osteoarthritis. Lordosis is otherwise normal. Vertebral bodies are normal in height without evidence of acute fracture. There is mild degenerative disc disease outside the surgical levels with vacuum phenomenon at the L1-L2, L2-L3 and L3-L4 levels. There is moderate facet osteoarthritis at the T12-L1 and L1-L2 levelsand advanced facet osteoarthritis at the L2-L3 and L3-L4 levels. The L4-L5 facets are fused and there is mild right and moderate left facet osteoarthritis at L5-S1. No posterior disc abnormalities identified. However, there is mild spinal stenosis in midline and moderate to severe lateral recess stenosis due to severe facet osteoarthritis at the L2-L3 and L3-L4 levels. The thecal sac is decompressed at L4-L5 and is normalin size at the L5-S1 level. Mild to moderate multilevel neural foraminal stenosis is seen. There is atherosclerotic calcification of theabdominal aorta and its branch vessels. There is muscular atrophy of posterior paravertebral muscles at the L5-S1 level. IMPRESSION: 1.Acute intraparenchymal hemorrhage within the right thalamus and posterior limb of internal capsule as detailed above with extension into the right lateral ventricle. Adjacent edema with associated mass effect. Associated 2 mm right to left midline shift. 2.A few additional focal hyperdensities in the right medial cerebellum inferiorly, which may represent hemorrhagic contusion versussubarachnoid hemorrhage versus artifact. 3.No evidence of acute fracture in the cervical, thoracic, or lumbarspine. Please refer to separately dictated CT body report for intrathoracic and intra-abdominal findings. Preliminary results regarding intracranial hemorrhage was reported by Tash Kingston M.D. ([employer]), electronically on 12/03/2021 at 7:49 PM I, Dr. CAMILO ALVAREZ have personally reviewed and interpreted this examination/study. This report was electronically signed by CAMILO ALVAREZ on 12/04/2021 8:07AM . Kodi Skelton MD CT ORDERABLES * CT CERVICAL SPINE WO CONTRAST - C-Spine Trauma, Spine fracture (12/03/2021 7:19 PM CDT) Anatomical Region Laterality Modality Spine Computed Tomogra phy 12/03/2021 7:34 PM CDT Impressions 12/04/2021 8:07 AM CDT IMPRESSION: 1.Acute intraparenchymal hemorrhage within the right thalamus and posterior limb of internal capsule as detailed above with extension into the right lateral ventricle. Adjacent edema with associated mass effect. Associated 2 mm right to left midline shift. 2.A few additional focal hyperdensities in the right medial cerebellum inferiorly, which may represent hemorrhagic contusion versus subarachnoid hemorrhage versus artifact. 3.No evidence of acute fracture in the cervical, thoracic, or lumbar spine. Please refer to separately dictated CT body report for intrathoracic and intra-abdominal findings. Preliminary results regarding intracranial hemorrhage was reported by Tash Kingston M.D. (vice president supply chain), electronically on 12/03/2021 at 7:49 PM I, Dr. CAMILO ALVAREZ have personally reviewed and interpreted this examination/study. This report was electronically signed by CAMILO ALVAREZ on 12/04/2021 8:07 AM . Narrative 12/04/2021 8:07 AM CDT EXAMINATION: 1. CT OF THE HEAD WITHOUT CONTRAST 2. CT OF THE CERVICAL SPINE WITHOUT CONTRAST 3. CT OF THE THORACIC SPINE WITHOUT CONTRAST 4. CT OF THE LUMBAR SPINE WITHOUT CONTRAST HISTORY: Trauma TECHNIQUE: CT of the head and cervical spine was performed without contrast according to standard protocol. Reformatted axial, sagittal, and coronal images of the thoracic and lumbar spine were obtained by the technologist from a concurrently performed body CT and sent to the workstation for review. COMPARISON: None. FINDINGS: HEAD: There is an acute intraparenchymal hemorrhage within the right thalamus and likely posterior limb of the internal capsule measuring approximately 2.6 x 1.7 x 2.0 cm in AP, transverse and cephalocaudal dimensions (series 4, image 17; series 6, image 40). There is intraventricular extension of the hemorrhage into the right lateral ventricle as well as minimal surrounding edema. There is mass effect on the right lateral ventricle and third ventricle. There is a 2 mm right to left midline shift at the level of the foramen of Magallanes (series 6, image 41). There are additional few focal hyperdensities in the right medial cerebellum inferiorly (series 4, image 28), which may represent hemorrhagic contusion versus subarachnoid hemorrhage versus artifact. The basilar cisterns are patent. The chao-white matter differentiation otherwise appears normal. No acute calvarial fracture is identified.. The orbits appear normal. The paranasal sinuses are clear. The mastoid air cells are clear. No soft tissue abnormality is identified. CERVICAL SPINE: The alignment is normal. No fracture, perched facet, spondylolisthesis or suspicious intrinsic bony lesion is identified. Vertebral bodies are normal in height. Other than middle atlantoaxial joint osteoarthritis, the craniocervical junction appears normal. The intervertebral disc spaces are normal in heights. No posterior disc abnormality, blood in central canal or central canal stenosis is seen. There is mild to moderate degenerative disc disease. There are varying degrees of moderate to severe facet osteoarthritis. There are varying degrees of mild uncovertebral joint osteoarthritis, moderate bilaterally at C5-C6 and C6-C7 with the same degree of neural foraminal stenosis at these levels. Subcentimeter hypodense nodules in the thyroid gland are indeterminate. THORACIC SPINE: The alignment is normal. No fracture, perched facet, spondylolisthesis or suspicious intrinsic bony lesion is identified. Vertebral bodies are normal in height. There is mild to moderate degenerative disc disease. No posterior disc abnormality, blood in central canal or central canal stenosis is seen. There is a spinal stimulator device at the T8-T9 levels in the dorsal epidural space, entering the central canal at T9-T10 level, with the power pack in the subcutaneous fat of the left parasagittal thoracolumbar region. The facets appear normal. No neural foraminal stenosis is seen. There is atherosclerotic calcification of the abdominal aorta. The paravertebral soft tissues are unremarkable. Dependent atelectasis in the imaged portion of the lungs and ill-defined peribronchiolar groundglass opacities of right upper lobe are visible. LUMBAR SPINE: The patient is status post partial resection of superior articular process of L5 and laminotomy on the left side, discectomy, interbody fusion and posterior fusion at L5-S1. There is mild anterolisthesis of L3 on L4 due to facet osteoarthritis. Lordosis is otherwise normal. Vertebral bodies are normal in height without evidence of acute fracture. There is mild degenerative disc disease outside the surgical levels with vacuum phenomenon at the L1-L2, L2-L3 and L3-L4 levels. There is moderate facet osteoarthritis at the T12-L1 and L1-L2 levels and advanced facet osteoarthritis at the L2-L3 and L3-L4 levels. The L4-L5 facets are fused and there is mild right and moderate left facet osteoarthritis at L5-S1. No posterior disc abnormalities identified. However, there is mild spinal stenosis in midline and moderate to severe lateral recess stenosis due to severe facet osteoarthritis at the L2-L3 and L3-L4 levels. The thecal sac is decompressed at L4-L5 and is normal in size at the L5-S1 level. Mild to moderate multilevel neural foraminal stenosis is seen. There is atherosclerotic calcification of the abdominal aorta and its branch vessels. There is muscular atrophy of posterior paravertebral muscles at the L5-S1 level. Procedure Note Camilo Alvarez MD - 12/04/2021 EXAMINATION: 1. CT OF THE HEAD WITHOUT CONTRAST 2. CT OF THE CERVICAL SPINE WITHOUT CONTRAST 3. CT OF THE THORACIC SPINE WITHOUT CONTRAST 4. CT OF THE LUMBAR SPINE WITHOUT CONTRAST HISTORY: Trauma TECHNIQUE: CT of the head and cervical spine was performed without contrast according to standard protocol. Reformatted axial, sagittal,and coronal images of the thoracic and lumbar spine were obtained by the technologist from a concurrently performed body CT and sent to the workstation for review. COMPARISON: None. FINDINGS: HEAD: There is an acute intraparenchymal hemorrhage within the right thalamus and likely posterior limb of the internal capsule measuringapproximately 2.6 x 1.7 x 2.0 cm in AP, transverse and cephalocaudal dimensions(series 4, image 17; series 6, image 40). There is intraventricular extension of the hemorrhage into the right lateral ventricle as well as minimal surrounding edema. There is mass effect on the right lateral ventricleand third ventricle. There is a 2 mm right to left midline shift at thelevel of the foramen of Magallanes (series 6, image 41). There are additional few focal hyperdensities in the right medial cerebellum inferiorly (series4, image 28), which may represent hemorrhagic contusion versus subarachnoid hemorrhage versus artifact. The basilar cisterns are patent. The chao-white matter differentiation otherwise appears normal. No acute calvarial fracture is identified.. The orbits appear normal.The paranasal sinuses are clear. The mastoid air cells are clear. No soft tissue abnormality is identified. CERVICAL SPINE: The alignment is normal. No fracture, perched facet, spondylolisthesisor suspicious intrinsic bony lesion is identified. Vertebral bodies are normal in height. Other than middle atlantoaxial joint osteoarthritis,the craniocervical junction appears normal. The intervertebral disc spacesare normal in heights. No posterior disc abnormality, blood in central canal or central canal stenosis is seen. There is mild to moderatedegenerative disc disease. There are varying degrees of moderate to severe facet osteoarthritis. There are varying degrees of mild uncovertebral joint osteoarthritis, moderate bilaterally at C5-C6 and C6-C7 with the same degree of neural foraminal stenosis at these levels. Subcentimeter hypodense nodules in the thyroid gland are indeterminate. THORACIC SPINE: The alignment is normal. No fracture, perched facet, spondylolisthesisor suspicious intrinsic bony lesion is identified. Vertebral bodies are normal in height. There is mild to moderate degenerative disc disease.No posterior disc abnormality, blood in central canal or central canal stenosis is seen. There is a spinal stimulator device at the T8-T9 levels in the dorsal epidural space, entering the central canal at T9-T10 level, with thepower pack in the subcutaneous fat of the left parasagittal thoracolumbar region. The facets appear normal. No neural foraminal stenosis is seen. There is atherosclerotic calcification of the abdominal aorta. The paravertebral soft tissues are unremarkable. Dependent atelectasis in the imagedportion of the lungs and ill-defined peribronchiolar groundglass opacities of right upper lobe are visible. LUMBAR SPINE: The patient is status post partial resection of superior articularprocess of L5 and laminotomy on the left side, discectomy, interbody fusion and posterior fusion at L5-S1. There is mild anterolisthesis of L3 on L4 due to facet osteoarthritis. Lordosis is otherwise normal. Vertebral bodies are normal in height without evidence of acute fracture. There is mild degenerative disc disease outside the surgical levels with vacuum phenomenon at the L1-L2, L2-L3 and L3-L4 levels. There is moderate facet osteoarthritis at the T12-L1 and L1-L2 levelsand advanced facet osteoarthritis at the L2-L3 and L3-L4 levels. The L4-L5 facets are fused and there is mild right and moderate left facet osteoarthritis at L5-S1. No posterior disc abnormalities identified. However, there is mild spinal stenosis in midline and moderate to severe lateral recess stenosis due to severe facet osteoarthritis at the L2-L3 and L3-L4 levels. The thecal sac is decompressed at L4-L5 and is normalin size at the L5-S1 level. Mild to moderate multilevel neural foraminal stenosis is seen. There is atherosclerotic calcification of theabdominal aorta and its branch vessels. There is muscular atrophy of posterior paravertebral muscles at the L5-S1 level. IMPRESSION: 1.Acute intraparenchymal hemorrhage within the right thalamus and posterior limb of internal capsule as detailed above with extension into the right lateral ventricle. Adjacent edema with associated mass effect. Associated 2 mm right to left midline shift. 2.A few additional focal hyperdensities in the right medial cerebellum inferiorly, which may represent hemorrhagic contusion versussubarachnoid hemorrhage versus artifact. 3.No evidence of acute fracture in the cervical, thoracic, or lumbarspine. Please refer to separately dictated CT body report for intrathoracic and intra-abdominal findings. Preliminary results regarding intracranial hemorrhage was reported by Tash Kingston M.D. (vice president supply chain), electronically on 12/03/2021 at 7:49 PM I, Dr. CAMILO ALVAREZ have personally reviewed and interpreted this examination/study. This report was electronically signed by CAMILO ALVAREZ on 12/04/2021 8:07AM . Kodi Skelton MD CT ORDERABLES * CT ANGIO BRAIN (12/03/2021 7:19 PM CDT) Anatomical Region Laterality Modality Head Computed Tomogra phy 12/03/2021 7:50 PM CDT Impressions 12/04/2021 8:44 AM CDT IMPRESSION: 1. Stable right thalamic intracranial hemorrhage. 2. No aneurysms, spot sign, or signs of a high flow vascular malformation identified. Drafted by Tash Kingston M.D. (vice president supply [employer]) I, Dr. CAMILO ALVAREZ have personally reviewed and interpreted this examination/study. This report was electronically signed by CAMILO ALVAREZ on 12/04/2021 8:44 AM . Narrative 12/04/2021 8:44 AM CDT EXAMINATION: CT ANGIOGRAPHY OF THE HEAD WITH CONTRAST DATE: 12/03/2021 7:23 PM HISTORY: W19.XXXA: Fall, initial encounter TECHNIQUE: CT angiography of the head and neck was obtained after the uneventful administration of 100 mL Isovue-370 intravenous contrast. Three dimensional postprocessing was performed by the technologist and sent to the workstation for review. COMPARISON: CT head without intravenous contrast, 12/03/2021 at 6:47 PM. NON-ANGIOGRAPHIC FINDINGS: The previously reported intraparenchymal hemorrhage of the right thalamus and adjacent right internal capsule is better seen on the nonenhanced CT head the study, but has not changed in the interval. No enhancing mass in the brain is identified. ANGIOGRAPHIC FINDINGS: The distal internal carotid arteries appear normal. The anterior and middle cerebral arteries appear normal. The distal vertebral arteries are tapered after the partial bilateral posterior inferior cerebellar arteries appear codominant. The basilar artery is minute in size with focal caliber change is without significant stenosis based on Lasix criteria. The posterior cerebral arteries appear normal with origin of both posterior cerebral arteries. No aneurysms, spot sign, or signs of a high flow vascular malformation are identified. Procedure Note Camilo Alvarez MD - 12/04/2021 EXAMINATION: CT ANGIOGRAPHY OF THE HEAD WITH CONTRAST DATE: 12/03/2021 7:23 PM HISTORY: [id number].XXXA: Fall, initial encounter TECHNIQUE: CT angiography of the head and neck was obtained after the uneventful administration of 100 mL Isovue-370 intravenous contrast.Three dimensional postprocessing was performed by the technologist and sent to the workstation for review. COMPARISON: CT head without intravenous contrast, 12/03/2021 at 6:47 PM. NON-ANGIOGRAPHIC FINDINGS: The previously reported intraparenchymal hemorrhage of the rightthalamus and adjacent right internal capsule is better seen on the nonenhanced CT head the study, but has not changed in the interval. No enhancing massin the brain is identified. ANGIOGRAPHIC FINDINGS: The distal internal carotid arteries appear normal. The anterior and middle cerebral arteries appear normal. The distal vertebral arteriesare tapered after the partial bilateral posterior inferior cerebellararteries appear codominant. The basilar artery is minute in size with focalcaliber change is without significant stenosis based on Lasix criteria. The posterior cerebral arteries appear normal with origin of both posterior cerebral arteries. No aneurysms, spot sign, or signs of a high flow vascular malformation are identified. IMPRESSION: 1. Stable right thalamic intracranial hemorrhage. 2. No aneurysms, spot sign, or signs of a high flow vascularmalformation identified. Drafted by Tash Kinsgton M.D. (vice president supply chain) I, Dr. CAMILO ALVAREZ have personally reviewed and interpreted this examination/study. This report was electronically signed by CAMILO ALVAREZ on 12/04/2021 8:44AM . Kodi Skelton MD CT ORDERABLES * INR WHOLE BLOOD - POINT OF CARE (IP) STROKE (12/03/2021 6:54 PM CDT) INR 1.1 0.9 - 1.2 12/03/2021 6:55 PM CDT [facility] Device [id number] 12/03/2021 6:55 PM CDT [facility] Checkering Machine Adjuster ID [id number] 12/03/2021 6:55 PM CDT [facility] Blood BLOOD SPECIMEN / Unknown 12/03/2021 6:54 PM CDT 12/03/2021 6:55 PM CDT Provider Unknown LAB - POINT OF CARE ORDERABLES [facility] [address] [place] [address], [facility] [phone] * XR CHEST 1VW PORTABLE (12/03/2021 6:45 PM CDT) Anatomical Region Laterality Modality Chest Radiographic Natalia ging 12/03/2021 6:43 PM CDT Impressions 12/04/2021 7:40 AM CDT FINDINGS/IMPRESSION: Spinal stimulator device partially visualized on the thoracic spine. Low lung volumes with associated bronchovascular crowding and compressive atelectasis. There is left lower lung/retrocardiac opacification, which likely represents atelectasis and/or airspace disease. Underlying small left-sided pleural effusion cannot be excluded. No right-sided pleural effusion. No pneumothorax. The cardiac silhouette is partially obscured, but likely normal. The mediastinal contours are normal. The aorta is atherosclerotic. Degenerative changes are noted in the thoracic spine. Dictated by Tash Kingston MD (vice president supply chain). Dr. PEYTON Duran have personally reviewed and interpreted this examination/study. This report was electronically signed by PEYTON MOONEY on 12/04/2021 7:40 AM . Narrative 12/04/2021 7:40 AM CDT EXAMINATION: XR CHEST 1VW PORTABLE HISTORY: Trauma COMPARISON: No prior study is available for comparison. Procedure Note Peyton Mooney, - 12/04/2021 EXAMINATION: XR CHEST 1VW PORTABLE HISTORY: Trauma COMPARISON: No prior study is available for comparison. FINDINGS/IMPRESSION: Spinal stimulator device partially visualized on the thoracic spine. Low lung volumes with associated bronchovascular crowding andcompressive atelectasis. There is left lower lung/retrocardiac opacification, which likely represents atelectasis and/or airspace disease. Underlying small left-sided pleural effusion cannot be excluded. No right-sided pleural effusion. No pneumothorax. The cardiac silhouette is partially obscured, but likely normal. The mediastinal contours are normal. The aorta is atherosclerotic. Degenerative changes are noted in the thoracic spine. Dictated by Tash Kingston MD (vice president supply chain). Dr. PEYTON Duran have personally reviewed and interpreted this examination/study. This report was electronically signed by PEYTON MOONEY on 12/04/2021 7:40 AM . Kodi Skelton MD DIAGNOSTIC IMAGING ORDERABLES * XR PELVIS 1 OR 2VW (12/03/2021 6:44 PM CDT) Anatomical Region Laterality Modality Pelvis Radiographic Natalia ging 12/03/2021 6:46 PM CDT Impressions 12/04/2021 7:40 AM CDT IMPRESSION: No acute fracture or dislocation identified. Dictated by Tahs Kingston MD (vice president supply chain). Dr. PEYTON Duran have personally reviewed and interpreted this examination/study. This report was electronically signed by PEYTON MOONEY on 12/04/2021 7:40 AM . Narrative 12/04/2021 7:40 AM CDT EXAMINATION: XR PELVIS 1 OR 2VW HISTORY: Trauma Fracture suspected COMPARISON: No prior study is available for comparison. FINDINGS: Partially visualized lumbar spinal fusion hardware. No acute fracture is identified. The bilateral hip joint spaces are preserved. The pubic symphysis is intact. The osseous architecture and density are normal. The sacroiliac joints are normal. Procedure Note Peyton Mooney DO - 12/04/2021 EXAMINATION: XR PELVIS 1 OR 2VW HISTORY: Trauma Fracture suspected COMPARISON: No prior study is available for comparison. FINDINGS: Partially visualized lumbar spinal fusion hardware. No acute fracture is identified. The bilateral hip joint spaces are preserved. The pubic symphysis is intact. The osseous architecture and density are normal. The sacroiliac joints are normal. IMPRESSION: No acute fracture or dislocation identified. Dictated by Tash Kingston MD (vice president supply chain). Dr. PEYTON Duran have personally reviewed and interpreted this examination/study. This report was electronically signed by PEYTON MOONEY on 12/04/2021 7:40 AM . Kodi Skelton MD DIAGNOSTIC IMAGING ORDERABLES * (ABNORMAL) TEG 6S PLATELET MAPPING (12/03/2021 6:41 PM CDT) TEGPLM (Max Amplitude) Koalin 66 53 - 68 mm 12/03/2021 8:00 PM CDT [facility] TEGPLM (Max Amplitude) ACTF 14 2 - 19 mm 12/03/2021 8:00 PM [facility] TEGPLM (Max Amplitude) ADP 44(L) 45 - 69 mm 12/03/2021 8:00 PM [facility] TEGPLM (Max Amplitude) AA 42(L) 51 - 71 mm 12/03/2021 8:00 PM [facility] TEGPLM %Inhibition ADP 42(H) 0 - 17 % 12/03/2021 8:00 PM [facility] TEGPLM %Inhibition AA 45(H) 0 - 11 % 12/03/2021 8:00 PM [facility] TEGPLM %Aggregation ADP 58(L) 83 - 100 % 12/03/2021 8:00 PM [facility] TEGPLM % Aggregation AA 55(L) 89 - 100 % 12/03/2021 8:00 PM [facility] Blood BLOOD SPECIMEN / Unknown Venipuncture / Unknown 12/03/2021 6:41 PM CDT 12/03/2021 6:45 PM CDT Kodi Skelton MD LAB - HEMATOLOGY O RDERABLES [facility] [address] [place] [id number], [facility] [phone] * (ABNORMAL) CBC W AUTO DIFFERENTIAL (12/03/2021 6:41 PM CDT) WBC 7.1 3.5 - 10.5 10 3/uL 12/03/2021 6:48 PM [facility] RBC 5.46(H) 3.80 - 5.20 10 6/uL 12/03/2021 6:48 PM [facility] Hemoglobin 16.1(H) 12.0 - 15.6 g/dL 12/03/2021 6:48 PM [facility] Hematocrit 48.1(H) 35.0 - 45.0 % 12/03/2021 6:48 PM [facility] MCV 88.1 80.7 - 98.3 fL 12/03/2021 6:48 PM [facility] MCH 29.5 26.7 - 34.0 pg 12/03/2021 6:48 PM [facility] MCHC 33.5 30.8 - 35.9 g/dL 12/03/2021 6:48 PM [facility] Platelet Count 265 150 - 400 10 3/uL 12/03/2021 6:48 PM [facility] RDW-SD 42.8 36.0 - 50.0 fL 12/03/2021 6:48 PM [facility] RDW-CV 13.2 11.2 - 14.8 % 12/03/2021 6:48 PM [facility] MPV 10.3 9.4 - 12.9 fL 12/03/2021 6:48 PM [facility] nRBC Absolute 0.00 0 10 3/uL 12/03/2021 6:48 PM [facility] nRBC Auto 0.0 0 /100 WBC 12/03/2021 6:48 PM [facility] Neutrophils % 59.2 35.0 - 70.0 % 12/03/2021 6:48 PM [facility] Lymphocytes % 29.0 20.0 - 43.0 % 12/03/2021 6:48 PM [facility] Monocytes % 9.0 5.0 - 13.0 % 12/03/2021 6:48 PM [facility] Eosinophils % 2.0 0.0 - 6.0 % 12/03/2021 6:48 PM [facility] Basophil % 0.7 0.0 - 2.0 % 12/03/2021 6:48 PM [facility] Neutrophils Absolute 4.2 1.6 - 7.0 10 3/uL 12/03/2021 6:48 PM [facility] Lymphocyte Absolute 2.1 1.1 - 3.9 10 3/uL 12/03/2021 6:48 PM [facility] Monocytes Absolute 0.64 0.26 - 1.07 10 3/uL 12/03/2021 6:48 PM [facility] Eosinophils Absolute 0.14 0.00 - 0.47 10 3/uL 12/03/2021 6:48 PM [facility] Basophils Absolute 0.05 0.00 - 0.08 10 3/uL 12/03/2021 6:48 PM CDT [facility] Immature Granulocytes % 0.1 0.0 - 1.0 % 12/03/2021 6:48 PM CDT [facility] Immature Granulocytes Absolute 0.01 12/03/2021 6:48 PM CDT [facility] Blood BLOOD SPECIMEN / Unknown Venipuncture / Unknown 12/03/2021 6:41 PM CDT 12/03/2021 6:46 PM CDT Kodi Skelton MD LAB - HEMATOLOGY O RDERAKAITLYNN [address] [address], Path[facility]To [phone] * TEG 6 GLOBAL HEMOSTASIS W/ LYSIS (12/03/2021 6:40 PM CDT) Citrated Kaolin R (Reaction Time) 5.1 4.6 - 9.1 min 12/03/2021 8:13 PM CDT [facility] Citrated Kaolin LY30 (Lysis) 0.0 0.0 - 2.6 % 12/03/2021 8:13 PM CDT [facility] Citrated RapidTEG MA (Max Amplitude) 65.5 52.0 - 70.0 mm 12/03/2021 8:13 PM CDT [facility] Citrated Functional Fibrinogen MA (Max Amplitude) 21.8 15.0 - 32.0 mm 12/03/2021 8:13 PM CDT [facility] Blood BLOOD SPECIMEN / Unknown Venipuncture / Unknown 12/03/2021 6:40 PM CDT 12/03/2021 6:45 PM CDT Kodi Skelton MD LAB - HEMATOLOGY O RDVISHNU [address] [address], [place] [phone] * TYPE + SCREEN PANEL (12/03/2021 6:40 PM CDT) Antibody Screen NEG 7:34 PM CDT [facility] ABO Rh O POS 12/03/2021 7:34 PM CDT [facility] Blood Bank BLOOD SPECIMEN / Unknown Venipuncture / Unknown 12/03/2021 6:40 PM CDT 12/03/2021 6:46 PM CDT Kodi Skelton MD LAB - BLOOD BANK O RDERABLES Performing Organization Address [facility] Co de Phone Number [facility] [address] [place] [phone], [facility] [phone] * ALCOHOL ETHYL BLOOD (12/03/2021 6:40 PM CDT) [facility] Ethanol (mg/dL) <10 <10 mg/dL 7:18 PM CDT [facility] Ethanol Calculated (g/dL) <0.010 <0.010 g/dL 12/03/2021 7:18 PM CDT [facility] Blood BLOOD SPECIMEN / Unknown Venipuncture / Unknown 12/03/2021 6:40 PM CDT 12/03/2021 6:45 PM CDT Narrative [facility] - 12/03/2021 7:18 PM CDT Ethanol Interp <10: None Detected. Depression of [employer]DE: >100 mg/dl Potentially Critical: >250 mg/dl Potentially Fatal >400 mg/dl Ethanol in the patient's blood will contribute to the osmolar gap. Ethanol's contribution to the osmolar gap can be estimated by dividing the concentration of ethanol in mg/dL by 4.6. This test is for clinical use only and does not equal a CHARLES for legal purposes. Kodi Skelton MD LAB - CHEMISTRY OR DERABLES Performing Organization Address [facility]/ZIP Co de Phone Number [address] [address], [place] [phone] Care Teams Dictating Machine Transcriber Relationship Specialty Start Date End Date Faraz Guevara MD [address] [place] [phone] [facility] - General 08/10/10
--- OUTSIDE RECORDS SUMMARY | 2024-10-12 16:19 | XMS_ITS | Referral Summary ---
Author Organization [facility] Address [address] [address] Care Team Providers Care Nuclear Medicine Medical Director Name Role Phone Faraz Guevara MD Primary Care Provider [phone] Source Comments [facility],non-owned Affiliates and Associated Physician Practices is amultiple site organization consisting of ambulatory clinics and hospital sitesin [place], [place], [place] and [place]. This disclosure is being madepursuant to the Care Everywhere program and may not contain all information available regarding this patient. Last updated 18.[facility] Allergies Active Allergy Reactions Criticality Noted Date [...] 12/03/2021 Immunizations Name Administration Dates Next Due [employer] primary monoval ent 12+ yr 0.3mL Purple [...] Mass Index 36.61 03/30/2022 1:16 PM CDT Functional Status Functional Status Response Date of Assess ment Is person deaf or have serious hearing difficult y? No 12/04/2021 Is person blind or have serious difficulty seein g? No 12/04/2021 Does person have serious dif ficulty walking/climbing stairs? No 12/04/2021 Does person have difficulty dressing/bathing? No 12/04/2021 Does person have difficulty doing errands alone? No 12/04/2021 Cognitive Status Response Date of Assessm ent Does person have difficulty concentrating/remembering/making decisions? No 12/04/2021 Plan of Treatment Not on file Advance Directives * Full Code (Latest Code Status on File) Date Activated Date Inactivated Comments 12/03/2021 9:02 PM 12/06/2021 5:47 PM Care Teams Nuclear Medicine Medical Director Relationship Specialty Start Date End Date Faraz Guevara MD [address] [place] [phone] PCP - General 08/10/10
--- NOTE | 2024-10-12 16:20 | ED.URI ---
HPI - URI/Sore Throat General Chief Complaint: Upper Respiratory Infection Stated Complaint: flu symptoms Time Seen by Provider: 10/12/24 16:19 Source: patient Mode of arrival: ambulatory Limitations: no limitations History of Present Illness HPI Narrative: Patient is a 73-year-old female who presents with ear pain, nausea, headache, sneezing and productive cough since last night. Patient has family at home that just tested positive for influenza a yesterday. Denies any fever, chills, vomiting, diarrhea. Related Data Home Medications ?Medication ?Instructions ?Recorded ?Confirmed ?Last Taken ?Type loratadine 10 mg tablet (Claritin) 10 mg PO DAILY 04/10/20 10/04/24 Unknown History acetaminophen 325 mg tablet 650 mg PO Q8H PRN Pain 09/11/20 10/04/24 Unknown History (Tylenol) magnesium 250 mg tablet 500 mg PO HS 09/11/20 10/04/24 Unknown History carvedilol 25 mg tablet 25 mg PO BIDWMEAL 04/16/24 10/04/24 Unknown History clopidogrel 75 mg tablet 75 mg PO DAILY 04/16/24 10/04/24 Unknown History cyanocobalamin (vitamin B-12) 5,000 mcg sublingual DAILY 04/16/24 10/04/24 Unknown History 5,000 mcg sublingual tablet (Vitamin B-12) fenofibrate 160 mg tablet 160 mg PO DAILY 04/16/24 10/04/24 Unknown History gabapentin 100 mg capsule 300 mg PO BID 04/16/24 10/04/24 Unknown History oxybutynin chloride 5 mg tablet 5 mg PO BID 04/16/24 10/04/24 Unknown History pantoprazole 40 mg tablet,delayed 40 mg PO DAILY 04/16/24 10/04/24 Unknown History release potassium chloride 20 mEq 20 meq PO DAILY 04/16/24 10/04/24 Unknown History tablet,extended release(part/cryst) sertraline 25 mg tablet 25 mg PO HS 04/16/24 10/04/24 Unknown History rosuvastatin 40 mg tablet 40 mg PO DAILY 06/13/24 10/04/24 Unknown History Allergies Allergy/AdvReac Type Severity Reaction Status Date / Time amlodipine Allergy Severe Asthma Verified 10/04/24 09:34 codeine Allergy Severe severe Verified 10/04/24 09:34 reactions thimerosal Allergy Severe HIVES, Verified 10/04/24 09:34 FACE BREAKOUT aspirin Allergy Intermediate Dizziness Verified 10/04/24 09:34 cephalexin Allergy Intermediate Rash Verified 10/04/24 09:34 irbesartan Allergy Intermediate Skin Verified 10/04/24 09:34 Reaction lactase Allergy Unknown allergy Verified 10/04/24 09:34 lactose Allergy Unknown allergy Verified 10/04/24 09:34 nitrofurantoin Allergy Unknown ?? Verified 10/04/24 09:34 rash/hives nitroglycerin Allergy Unknown severe Verified 10/04/24 09:34 reaction Penicillins Allergy Unknown COMA Verified 10/04/24 09:34 fluticasone AdvReac Intermediate CAUSES Verified 10/12/24 16:23 EPISTAXIS hydrocodone AdvReac Mild Nausea and Verified 10/04/24 09:34 Vomiting potassium iodide AdvReac Unknown Nausea Verified 10/12/24 16:23 Review of Systems Review of Systems: All systems reviewed & are unremarkable except as noted in HPI and below Constitutional: Constitutional: Denies chills, Denies fatigue, Denies fever(s), Reports headache(s), Denies malaise and Denies weakness Eyes: Eyes: Denies blurry vision, Denies itchy eyes and Denies loss of vision ENT: Reports otalgia, Reports headache(s), Reports nasal congestion, Denies sinus pain and Denies sore throat Cardiovascular: Cardiovascular: Denies chest pain, Denies irregular heart rhythm and Denies dyspnea Respiratory: Respiratory: Reports cough and Denies dyspnea Gastrointestinal: Gastrointestinal: Denies abdominal pain, Denies diarrhea, Denies nausea and Denies vomiting Musculoskeletal: Musculoskeletal: Denies back pain, Denies myalgias and Denies arthralgias Integumentary/Breasts: Skin/Breast: Denies pruritus and Denies rash Neurologic: Denies headache(s), Denies loss of vision and Denies weakness Psychiatric: Psychiatric: Reports no additional psychiatric complaints Endocrine: Endocrine: Denies fatigue Allergic/Immunologic: Allergic/Immunologic: Denies itchy eyes PMFSH Past Medical History Medical History History of stroke Cerebral brain hemorrhage Arthritis Systemic lupus erythematosus COVID-19 07/27/2020 Rotator cuff tear arthropathy of right shoulder Atherosclerotic heart disease of [place] coronary artery with other forms of angina pectoris Cardiac catheterization 03/05/2018 showed ischemic heart disease with no significant occlusive disease identified. Remaining patency of the RCA. Previous infarction of the inferior wall. EF estimated to be 50%. Essential (primary) hypertension Gastro-esophageal reflux disease without esophagitis Hypertensive heart and chronic kidney disease with heart failure and stage 1 through stage 4 chronic kidney disease, or unspecified chronic kidney disease Hypertensive retinopathy, unspecified eye Mixed hyperlipidemia Sleep apnea Surgical History Surgical History Hx of dilation and curettage History of hysterectomy Status post decompression of ulnar nerve at elbow History of heart artery stent History of back surgery Prior fusion surgery to L spine. 10/26/20 had Nerve Stimulator placed for chronic back issues History of knee surgery Family History Family History Mother Diabetes mellitus Patient's mother is Family history of cardiovascular disease Father Family history of cardiovascular disease Patient's father is Sibling Myocardial infarct Breast cancer Other Breast cancer Skin cancer Other Family history of kidney disease Hypertension Social History Social History Social History: Code status: Patient would like to be a do not intubate. She would like to have chest compressions and or medication to try and provide for. Power of workers compensation defense attorney: Granddaughter Ana Paula Jose Smoking packs per day: 2.5 Smoking cigarettes per day: 50.0 Years smoked: 20 Smoking pack-years: 50.00 Smoking status: Former smoker Alcohol intake: current Drinks per week: 1 Alcohol use details: glass of wine 2-3 times a few times a month. Substance use: never Substance use type: does not use Do You Feel Safe in your Home?: Yes Lack of Transportation: No Lack of Food: Never True Current Housing: I Have Housing Concerned About Future Housing: No Difficulty Paying Gas/Electric Bills: No Difficulty Paying for Meds: No Currently Unemployed: No Education: High School Diploma/GED Difficulty w/ Childcare or Family Care: No Living arrangements: with family Additional living arrangements comments: With Granddaughter Occupation/Education: retired Gender identity (if verbalized by the patient): Female Sexual Orientation (if Verbalized by the Patient): Straight or Heterosexual Spiritual care concerns: No Agree to blood products: Yes Comments At time of signature, agree with nursing past medical, surgical, social and family history. There is no relevant family history pertinent to the presenting complaint. Exam Const: General: cooperative, healthy appearing, comfortable, no acute distress and well nourished Nutritional Appearance: well nourished Orientation/consciousness: patient oriented x3 Limitations: no limitations HENMT: Head: normal to inspection, normocephalic and atraumatic Ears: hearing grossly normal bilaterally, external ears normal, TM's normal bilaterally, EAC's normal and no periauricular adenopathy Face/Nose/Sinus: Normal external nose present, Abnormal mucous membranes and turbinates present erythematous bilateral and diffuse, normal facial exam, sinuses nontender and face symmetric Face and sinus: normal facial exam, sinuses nontender and face symmetric Mouth: Yes Normal oral and palatal mucosa present, Yes lip normal, Yes tongue normal, Yes Normal salivary glands and ducts present, Yes oropharynx normal and Yes moist mucous membranes Teeth and gingiva: dentition normal Throat: posterior oropharynx normal, tonsils normal and uvula midline Eyes: General: appearance normal, both eyes and all related structures Alignment and Position: alignment normal and position normal Periorbital: periorbital findings normal Eyelids: eyelids normal Pupils: Equal, round and reactive pupils present Neck: Neck: normal visual inspection, full ROM, no lymphadenopathy and supple Chest: Chest palpation & inspection: normal inspection of the chest and normal palpation of entire chest wall Resp: Effort & Inspection: normal respiratory effort and able to speak in complete sentences Auscultation: clear to auscultation bilaterally, no crackles, no rales, no rhonchi and no wheezes Cardio: Rate: regular rate Rhythm: regular rhythm Heart sounds: S1 normal heart sound present and S2 normal heart sound present GI: Inspection: normal to inspection Skin: General skin exam: normal color and no rashes or lesions noted Neuro: General: patient oriented x3 and moves all extremities Cranial nerves: Yes Equal, round and reactive pupils present Speech: normal speech Gait exam (Neuro): Normal gait present Extrem: General: normal to inspection, full ROM and no edema Psych: Appearance: grossly normal and well kempt Mental Status: mental status grossly normal Speech and movement: Normal speech and movement present Affect: normal affect Attitude: cooperative Thought process: Normal thought process present Course Course Emergency Course: Discharge instructions reviewed with patient, as well as provided in writing per nursing staff. The instructions also include specific and strict return/GO TO THE ER as well as f/u information. All questions have been answered, and the patient deny any further questions with discharge and discharge plan. Portions of this record may have been created with voice recognition software Level of Care: Express Care Visit Vital Signs Vital signs: Vital Signs Temperature 36.3 C L 10/12/24 16:32 Pulse Rate 93 10/12/24 16:32 Respiratory Rate 18 10/12/24 16:32 Blood Pressure 127/72 10/12/24 16:32 Pulse Oximetry 96 10/12/24 16:32 Oxygen Delivery Room Air 10/12/24 16:32 Temperature 36.3 C L 10/12/24 16:32 Pulse Rate 93 10/12/24 16:32 Respiratory Rate 18 10/12/24 16:32 Blood Pressure 127/72 10/12/24 16:32 Pulse Oximetry 96 10/12/24 16:32 Oxygen Delivery Room Air 10/12/24 16:32 Reviewed MDM - URI/Sore Throat MDM Narrative Medical decision making narrative: Pt well hydrated appearing, in no respiratory distress, hemodynamically stable. Recommend supportive care. The patient is stable at time of discharge the clinical impression was discussed and the patient was given the opportunity to ask questions, which were addressed as completely as possible given the information available at present. Anticipatory guidance and return to care precautions were discussed and the importance of primary care follow-up was stressed and encouraged. The patient voiced understanding of the plan, indications to return, and the need for follow-up. Differential diagnosis considered: Bronchitis, [place] virus, strep pharyngitis, allergic rhinitis, upper respiratory tract infection, sinusitis, rhinosinusitis, nasopharyngitis. viral pharyngitis, otitis media, otitis externa, otitis effusion, foreign body, cerumen impaction, viral syndrome, and influenza.? Exam findings show no acute concerns or changes; patient is non-toxic appearing and is in no distress.? Patient is appropriate for outpatient treatment and follow-up.? Medical Records Attestation: I reviewed the patient's medical records. Lab Data Attestation: I reviewed the patient's lab results. Labs: Lab Results 10/12/24 Range/Units 16:50 POC Influenza A Ag Positive (Negative) POC Influenza B Ag Negative (Negative) POC SARS CoV-2 Ag Negative (Negative) Discharge Plan Discharge Clinical Impression: Influenza Patient Disposition: Home, Self-Care Condition: Stable Instructions: Influenza (ED) Additional Instructions: Were positive for influenza A. Your Covid is negative Your symptoms are due to a viral illness, which is not treated with antibiotics. Viral symptoms can be present for up to a few weeks. -For fever/pain, you may take: Tylenol 650-1000mg by mouth every 4-6 hours. Do not exceed 4000mg in 24 hours. Advil (Ibuprofen) 600 mg by mouth every 6 hours. Do not exceed 2400mg in 24 hours. 8 AM: Tylenol 11 AM: Ibuprofen 2 PM: Tylenol 5 PM: Ibuprofen 8 PM: Tylenol 11 PM: Ibuprofen 2 AM: Tylenol 5 AM: Ibuprofen -Antihistamine medication such as Benadryl/Zyrtec at night and Claritin/Luna during the day can help improve symptoms. -Use Flonase twice a day for 5 days then daily to help reduce the inflammation and dry up your sinuses. -You can also use Sudafed behind the pharmacy counter(12 or 24 hour). Be sure to drink plenty of water with these medications at least 8 ounces with every dose and it is important to drink 8 to 10 glasses of water per day. Water is a natural decongestant -Eat and drink things that are easy to swallow, like tea or soup, or popsicles. -Oral rinses such as: Salt water gargles and/or may use topical anesthetic (eg. Chloraseptic spray) or lozenges to relieve dryness or throat pain). -Frequent hand washing or hand sustainability analyst is one of the best ways to prevent spread of infection. -Using a vaporizer or humidifier at night will also help thin secretions and help with coughing up phlegm. -Follow up with primary care provider in 3-5 days if condition is not improving - For new or worsening symptoms go directly to the nearest ER Patient Language: Sammarinese Prescriptions: New oseltamivir [Tamiflu] 75 mg capsule 75 mg PO Q12H 5 Days Qty: 10 0RF No Action loratadine [Claritin] 10 mg tablet 10 mg PO DAILY magnesium 250 mg tablet 500 mg PO HS acetaminophen [Tylenol] 325 mg tablet 650 mg PO Q8H PRN (Reason: Pain) clonidine HCl 0.2 mg tablet 0.2 mg PO .COMPLEX Qty: 90 2RF Rx Instructions: 0.2 mg orally; one in the morning and 2 in the evening (DME) Compression stockings See Rx Instructions .Route .MEDSUPPLY Qty: 1 0RF Rx Instructions: Mild compression bilateral lower leg, up to the knee. levofloxacin 750 mg tablet 750 mg PO DAILY 7 Days Qty: 7 0RF tizanidine 4 mg tablet 4 mg PO QHS PRN (Reason: muscle spasticity) Qty: 90 3RF furosemide 20 mg tablet 40 mg PO QAM Qty: 180 1RF rosuvastatin 40 mg tablet 40 mg PO DAILY lisinopril 40 mg tablet 40 mg PO DAILY Qty: 100 1RF duloxetine 60 mg capsule,delayed release(DR/EC) 60 mg PO BID Qty: 200 1RF clopidogrel 75 mg Tablet 75 mg PO DAILY gabapentin 100 mg Capsule 300 mg PO BID cyanocobalamin (vitamin B-12) [Vitamin B-12] 5,000 mcg Tablet, Sublingual 5,000 mcg SUBLINGUAL DAILY carvedilol 25 mg tablet 25 mg PO BIDWMEAL Rx Instructions: TAKE 1 TABLET BY MOUTH TWICE DAILY WITH FOOD potassium chloride 20 mEq tablet,ER particles/crystals 20 meq PO DAILY pantoprazole 40 mg tablet,delayed release (DR/EC) 40 mg PO DAILY sertraline 25 mg tablet 25 mg PO HS oxybutynin chloride 5 mg tablet 5 mg PO BID fenofibrate 160 mg tablet 160 mg PO DAILY Rx Instructions: TAKE 1 TABLET BY MOUTH DAILY sennosides [Senokot] 8.6 mg Tablet 8.6 mg PO BID Qty: 30 0RF Follow-up/Referrals: Faraz Guevara MD [Primary Care Provider] - 3 Days Time of Disposition: 16:51
[2024-10-12 16:32] VITALS: BP 127/72; PULSE 93; RESP 18; TEMP 36.3; O2SAT 96
[2024-10-12 16:52] LABS: EDCOVIDSCREEN Negative (Negative); EDINFLUASCREEN Positive (Negative); EDINFLUBSCREEN Negative (Negative)
== END 2024-10-12 16:54 | disposition home or self-care (01) ==
PROVIDERS: Emergency Provider Nurse Practitioner Family; PCP Family Medicine
DX: J11.1 Influenza due to unidentified influenza virus with other respiratory manifestations (principal); I12.9 Hypertensive chronic kidney disease with stage 1 through stage 4 chronic kidney disease, or unspecified chronic kidney disease; N18.9 Chronic kidney disease, unspecified; E78.2 Mixed hyperlipidemia; I25.10 Atherosclerotic heart disease of native coronary artery without angina pectoris; Z20.822 Contact with and (suspected) exposure to COVID-19; Z87.891 Personal history of nicotine dependence
CPT/HCPCS: 87426; 87804; 99213; G0463